=== PATIENT | male | born 1950 | race Caucasian/White ===

== ENCOUNTER 2021-04-29 08:47 | Outpatient (CLI) | payer MEDICARE, OTHER ==
[~2021-04-29] VITALS: Ht 172.7 cm; Wt 118.9 kg
== END 2021-04-30 13:04 | disposition home or self-care (01) ==
LOC: PREOP 08:47
PROVIDERS: ATTEND Surgery
DX: Z01.818 Encounter for other preprocedural examination (principal)

== ENCOUNTER 2021-05-04 09:21 | Day surgery (SDC) | payer MEDICARE, MEDICAID ==
[~2021-05-04] VITALS: Ht 172.7 cm; Wt 120.2 kg
--- OUTSIDE RECORDS SUMMARY | 2021-05-04 09:25 | XMS REPORT | Clinical Summary ---
Author Author [facility] Organization [facility] Address Unknown Phone Unavailable Care Team Providers Care Steam Hoist Operator Name Role Phone Dannielle Marin MD Unavailable Marvin Plata MD Unavailable Duane Kuhn MD, H. William Unavailable [phone] Arben Wright MD Unavailable Staci Oneill MD Unavailable Rosaura Danielle MD Unavailable Lynn Arredondo RN Unavailable Unavailable Jeff Mazariegos MD Unavailable Niall Robles DO Unavailable Shae Vaughn Unavailable Unavailable No Pcp, Na PCP Unavailable Source Comments Some departments are not documenting in the electronic medical record. If you d o not see the information that you expected, contact Release of Information in [facility] Information Management department at [phone] for further assistan ce in locating additional records.[facility] Allergies Comments Active Allergy Reactions Severity Noted Date Spouse states Patient gets really red, eyes and skin Morphine SEE COMMENTS Low 07/07/2018 Pt on IV Remodulin Nitroglycerin 07/01/2007 Sulfa (Sulfonamide HIVES Medium 02/23/2018 Antibiotics) Medications End Date Status Medication Sig Dispensed Refills Start Date Active tadalafil(+) (CIALIS, Take 20 mg by 0 ADCIRCA) 20 mg mouth daily. tabletIndications: Indications: pulmonary arterial pulmonary hypertension arterial hypertension Active treprostinil (TYVASO) Inhale 9 0 11/16/19 1 1.74 mg/2.9 mL (0.6 Puffs 4 mg/mL) nebu nebulizer solution as solution directed four times daily. Active acetaminophen (TYLENOL) Take two 0 325 mg tabletIndications: tablets by 9 fever, pain mouth every 4 hours as needed. Indications: fever, Pain Active oxyCODONE (ROXICODONE, Take one 10 tablet 0 OXY-IR) 5 mg tablet tablet to two 9 tablets by mouth every 4 hours as needed Earliest Fill Date: 08/09/18 Active amoxicillin/potassium Take by 0 clav (AUGMENTIN PO) mouth. Active furosemide (LASIX) 40 mg Take 2 360 tablet 2 0 tablet tablets by 1 mouth twice daily Active apixaban (ELIQUIS) 5 mg Take 5 mg by 0 tablet mouth twice daily. Active dilTIAZem CD (CARDIZEM Take 120 mg 0 CD) 120 mg capsule by mouth daily. Active allopurinoL (ZYLOPRIM) Take 100 mg 0 100 mg tablet by mouth daily. Take with food. Active citalopram (CELEXA) 20 mg Take 1 tablet 90 tablet 2 tablet by mouth once 1 daily Active gabapentin (NEURONTIN) TAKE 1 TABLET 90 tablet 11 0 600 mg tablet BY MOUTH 1 THREE TIMES DAILY FOR NEUROPATHIC PAIN Active spironolactone Take 1 tablet 90 tablet 3 (ALDACTONE) 50 mg tablet by mouth once 2 daily with food Active potassium chloride SR TAKE 3 360 tablet 11 (K-DUR) 20 mEq tablet TABLETS BY 2 MOUTH 4 TIMES DAILY WITH MEALS AND A FULL GLASS OF WATER 04/13/2021 Discontinued potassium chloride SR TAKE 3 360 tablet 6 (K-DUR) 20 mEq tablet TABLETS BY 0 MOUTH 4 TIMES DAILY WITH MEALS AND A FULL GLASS OF WATER 04/13/2021 Discontinued spironolactone Take 1 tablet 90 tablet 2 (ALDACTONE) 50 mg tablet by mouth once 1 daily with food Active Problems Problem Noted Date Chronic atrial fibrillation 08/04/2020 Epiretinal membrane (ERM) of left eye 02/22/2019 Physical deconditioning 08/21/2018 Horseshoe tear of retina of left eye 05/30/2018 Vitreous hemorrhage of left eye 05/30/2018 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 Probable Primary pulmonary hypertension 07/12/2007 Overview: Formatting of this note might be differ ent from the original. On remodulin, improved to who functiona l class I Lower extremity edema 07/12/2007 Hypothyroidism 07/12/2007 Depression 07/12/2007 Mitral regurgitation 07/12/2007 Hypertension 07/12/2007 Resolved Problems Problem Noted Date Resolved Date Intra-abdominal abscess 08/07/2018 02/22/2019 Acute hypoxemic respiratory failure 07/07/2018 Acute appendicitis 07/06/2018 07/09/2018 Appendicitis 07/06/2018 02/22/2019 Metabolic alkalosis 07/12/2007 08/08/2018 Encounters Care Team Description Date Type Specialty Marvin Plata MD 04/13/2021 Refill Pulmonology from Last 3 Months Immunizations Name Administration Dates Next Due FLU VACCINE >3YO 05/15/2012 Flu Vaccine =>65 YO 02/22/2019, 02/23/2018 High-Dose (PF) Flu Vaccine Trivalent =>3 03/20/2015 Yo (Preservative Free) Flu Vaccine Trivalent >64 04/29/2016 Yo High-dose (Preservative Free) Surgical History Surgery Date Site/Laterality Comments HX FOOT SURGERY LAPAROSCOPIC APPENDECTOMY 07/07/2018 Abdomen/N/A LAPA ROSCOPIC APPENDECTOMY performed by Jasen Arriaza MD at [facility] OR/Periop EYE SURGERY 05/30/2018 Eye/Left PROPHYLAXIS RET INAL DETACHMENT - 1 OR MORE SESSION - PHOTOCOAGULATION performed by Bernice Jernigan MD at 2 OR/PERIOP Medical History Medical History Date Comments Unspecified cardiovascular disease Unspecified disease of respiratory system Other symptoms involving skin and integumentary tissues Pulmonary hypertension (HCC) Htn Depression Cardiomyopathy (HCC) right ventricular CHF (congestive heart failure) (HCC) Family History Medical History Relation Name Comments Emphysema Father Macular Degen Maternal Aunt Hypertension Maternal Grandmother Cancer Mother Blindness Neg Hx Glaucoma Neg Hx Relation Name Status Comments Father Maternal Aunt Maternal Grandmother Mother Social History Date Tobacco Use Types Packs/Day Years Used Current Some Day Smoker Cigars 15 Smokeless Tobacco: Never Used Tobacco Cessation: Ready to Quit: No; Co unseling Given: No Comments: cigar infrequently maybe once every couple of months as of 04/01/14 Comments Alcohol Use Standard Drinks/Week occasional 1 drink every 6 months No 0 (1 standard drink = 0.6 o z pure alcohol) Alcohol Habits Answer Date Recorded How often do you have a drink containing alcohol? No t asked How many drinks containing alcohol do you have on No t asked a typical day when you are drinking? How often do you have six or more drinks on one Not asked occasion? Comment: occasional 1 drink every 6 05/10/2013 months Sex Assigned at Date Recorded Not on file Last Filed Vital Signs Reading Time Taken Comments Vital Sign 99/64 08/04/2020 8:12 AM CDT Blood Pressure 56 08/04/2020 8:12 AM CDT Pulse 36.5 C (97.7 F) 08/04/2020 8:12 AM CDT Temperature 16 08/04/2020 8:12 AM CDT Respiratory Rate 96% 08/04/2020 8:12 AM CDT RA Oxygen Saturation - - Inhaled Oxygen Concentration 120.4 kg (265 lb 6.4 oz) 08/04/2020 8:12 AM CDT Weight 172.7 cm (5' 8") 08/04/2020 8:12 AM CDT Height 40.35 08/04/2020 8:12 AM CDT Body Mass Index Plan of Treatment Health Maintenance Due Date Last Done Comments MEDICARE ANNUAL WELLNESS 1950 VISIT PNEUMONIA (PPSV23) 1958 VACCINE (1 of 2 - PPSV23) DTAP/TDAP VACCINES (1 - 1970 Tdap) PHYSICAL (COMPREHENSIVE) 1970 EXAM COLORECTAL CANCER 2002 SCREENING SHINGLES RECOMBINANT 2002 VACCINE (1 of 2) ABDOMINAL AORTIC ANEURYSM 2017 SCREENING INFLUENZA VACCINE 11/09/2020 02/22/2019, 02/23/2018, 04/29/2016, Additional history exists HEPATITIS C SCREENING Completed 04/29/2016, 06/23/2007 Results Not on filefrom Last 3 Months Insurance Type Payer Benefit Subscriber ID Effective Phone Address Plan / Dates Group Medicare MEDICARE MEDICARE [id number] 2008- [phone] [place] [address] AETNA MEDICAID AETNA [id number] 2018-P [phone] [address] [address] [place] [phone] Advance Directives Patient Auto Service Dispatcher Explanation Type Date Recorded Advance Directive/DPOA Advance Directives 11/09/2012 9:28 AM and Living Will Advance Directives 11/22/2011 11:48 AM and Living Will Advance Directives 12/03/2010 12:00 AM and Living Will Advance Directives 11/04/2009 12:00 AM and Living Will Date Inactivated Comments Code Status Date Activated 08/09/2018 11:35 AM Full Code 08/08/2018 7:38 AM Provider has discussed Code Status No, discussion no t w/Patient or Family? necessary based on Dx 08/08/2018 7:37 AM Full Code 08/07/2018 8:17 PM Provider has discussed Code Status No, more discussi on w/Patient or Family? needed 07/09/2018 5:14 PM Full Code 07/06/2018 10:28 PM Provider has discussed Code Status Yes w/Patient or Family? 07/06/2018 10:28 PM Full Code 07/06/2018 9:00 PM Provider has discussed Code Status No, more discussi on w/Patient or Family? needed 07/06/2018 9:00 PM Full Code 07/06/2018 9:00 PM Provider has discussed Code Status No, more discussi on w/Patient or Family? needed Care Teams Start Date End Date Steam Hoist Operator Relationship Specialty 08/17/18 No Pcp, Na PCP - General 02/09/10 Dannielle Marin MD [address] [place] [address] 02/09/10 Marvin Plata MD [address] Ortho[facility] Lvl [address] [place] [address] 02/09/10 Kizzy Zepeda Jr., MD [address] [facility] [address] [place] [address] 02/09/10 Arben Wright MD 4000 [facility] CST[address] [place] [address] 02/09/10 Staci Oneill MD [address] [place] [address] 02/09/10 Rosaura Danielle MD [address] [place] [address] 06/14/10 Lynn Arredondo, RN 06/15/10 Jeff Mazariegos MD Geriatric 4000 [facility] [place] [address] Medicine 11/13/13 Niall Robles, DO Internal [address] [place] [address] [place] [address] 11/19/13 Shae Vaughn
--- OUTSIDE RECORDS SUMMARY | 2021-05-04 09:25 | XMS REPORT | Encounter Summary ---
Author Author [facility] Organization [facility] Address Unknown Phone Unavailable Care Team Providers Care Area Safety Manager Name Role Phone Dannielle Marin MD Unavailable Marvin Plata MD Unavailable Duane Kuhn MD, H. William Unavailable [phone] Arben Wright MD Unavailable Staci Oneill MD Unavailable Rosaura Danielle MD Unavailable Lynn Arredondo RN Unavailable Unavailable Jeff Mazariegos MD Unavailable Niall Robles DO Unavailable Shae Vaughn Unavailable Unavailable No Pcp, Na PCP Unavailable Reason for Visit * Reason Comments Medication Refill Encounter Details Care Team Description Date Type Department Marvin Plata MD [address] Ortho/Med Pavilion [address] [place] [address] 04/13/2021 Refill Pulmonology: Reyes Hopper ampus, Medical Pavilion [address], [address] [address] Social History Date Tobacco Use Types Packs/Day Years Used Current Some Day Smoker Cigars 15 Smokeless Tobacco: Never Used Comments: cigar infrequently maybe once every couple [...] Assigned at Date Recorded Not on file documented as of this encounter Functional Status Date of Assessment Functional Status Response 08/09/2018 Does the patient have a hearing impairment: No 08/09/2018 Does the patient have a visual impairment: No 08/09/2018 Does the patient have impaired ambulation: No 08/09/2018 Does the patient have an activity of daily living No (ADL) impairment: 08/09/2018 Does the patient have an instrumental activity of No daily living (IADL) impairment: Date of Assessment Cognitive Status Response 08/09/2018 Does the patient have a cognitive impairment: No documented as of this encounter Ordered Prescriptions Start Date End Date Prescription Sig Dispensed Refills 04/13/2021 potassium chloride SR TAKE 3 360 tablet 11 (K-DUR) 20 mEq tablet TABLETS BY MOUTH 4 TIMES DAILY WITH MEALS AND A FULL GLASS OF WATER 04/13/2021 spironolactone Take 1 tablet 90 tablet 3 (ALDACTONE) 50 mg tablet by mouth once daily with food documented in this encounter Plan of Treatment Not on filedocumented as of this encounter Visit Diagnoses Not on filedocumented in this encounter Discontinued Medications Start Date End Date Medication Sig Discontinue Reason 06/30/2020 04/13/2021 spironolactone Take 1 (ALDACTONE) 50 mg tablet tablet by mouth once daily with food 10/16/2019 04/13/2021 potassium chloride SR TAKE 3 (K-DUR) 20 mEq tablet TABLETS BY MOUTH 4 TIMES DAILY WITH MEALS AND A FULL GLASS OF WATER documented as of this encounter Additional Health Concerns Noted Time Assessment 08/04/2020 8:20 AM CDT A fall risk assessment has been complet ed for the patient 08/04/2020 8:19 AM CDT PHQ-2 Depression Total Score: 2 documented as of this encounter Care Teams Start Date End Date Area Safety Manager Relationship Specialty 08/17/18 No Pcp, Na PCP - General 02/09/10 Dannielle Marin MD [address] [place] [address] 02/09/10 Marvin Plata MD [address] [facility] L[facility] [address] [place] [address] 02/09/10 Kizzy Zepeda Jr., MD 4000 [facility] [address] [place] [address] 02/09/10 Arben Wright MD 4000 [facility] I[address]454 [place] [address] 02/09/10 Staci Oneill MD [address] [place] [address] 02/09/10 Rosaura Danielle MD [address] [place] [address] 06/14/10 Lynn Arredondo, RN 06/15/10 Jeff Mazariegos MD Geriatric 4000 [facility] [address] Medicine 11/13/13 Niall Robles, DO Internal [facility] Medicine [facility] [address] [place] [address] 11/19/13 Shae Vaughn documented as of this encounter
[2021-05-04] MEDS ORDERED: LACTATED RINGERS 1,000 ML IV ONE (09:28)
[2021-05-04] MEDS ORDERED: LACTATED RINGERS 1,000 ML IV STA (09:32)
[2021-05-04 09:45] VITALS: BP 105/71
--- NOTE | 2021-05-04 09:47 | Progress Note-Pre Operative ---
Pre-Operative Progress Note H&P Reviewed The H&P was reviewed, patient examined and no changes noted. Time Seen by Provider: 09:45 Date H&P Reviewed: May 04, 2021 Time H&P Reviewed: 09:45 Pre-Operative Diagnosis: RLQ pain, rectal bleed NAOMI HODGE DO May 04, 2021 09:47
[2021-05-04] MEDS ORDERED: APIX5TAB PO (10:13)
[2021-05-04] MEDS ORDERED: ESCI-2 PO (10:13)
[2021-05-04] MEDS ORDERED: GBPN600T PO (10:13)
[2021-05-04] MEDS ORDERED: DILT120C88 PO (10:13)
[2021-05-04] MEDS ORDERED: CITA20TA9 PO (10:13)
[2021-05-04] MEDS ORDERED: SPIR100T4 PO (10:13)
[2021-05-04] MEDS ORDERED: ALPR0.254 PO (10:13)
[2021-05-04] MEDS ORDERED: ALLO100T PO (10:13)
[2021-05-04] MEDS ORDERED: POTA-179 PO (10:13)
[2021-05-04] MEDS ORDERED: PROPOFOL INJECTION 50 ML IV ONE (10:27)
[2021-05-04 10:55] VITALS: BP 101/68
--- NOTE | 2021-05-04 10:58 | Progress Note-Post Operative ---
Post-Operative Progess Note Surgeon (s)/Feather Cutting Machine Feeder (s) Surgeon NAOMI HODGE DO Feather Cutting Machine Feeder: MERCEDEZ Saavedra Pre-Operative Diagnosis RLQ pain, rectal bleed Post-Operative Diagnosis Near obstructing colon mass polyps int hemorrhoids Procedure & Operative Findings Date of Procedure 05/04/21 Procedure Performed/Findings Flex sig with snare polypectomy Flex sig with hot bx Flex sig with injection of tattoo markings PROCEDURE NOTE: After informed consent was obtained, the patient was brought to the endoscopy suite, placed in bed in left lateral decubitus position. He was administered IV sedation by the SENIOR INFRASTRUCTURE ARCHITECT who then monitored his vitals the entire time, heart rate, blood pressure and pulse ox and the scope was inserted. On the way in we to to about 50 cm and encountered a near obstructing lesion. The distal end was inflamed and past this there appeared to be an ulcer with possible further narrowing. I could not get the scope past here. I elected to do hot biopsy of the area and then used Marline Ink to tattoo for subsequent procedures. At this point elected to remove the scope insufflating to see cirumferentially; from the descending colon, down the sigmoid and then into the rectal vault and retroflexed the scope. I found two polyps in the rectum and elected to do a hot snare to completely remove them. I took a picture of the polyps and internal hemorrhoids. Removed the scope, the patient tolerated the procedure. He was recovered in endoscopy suite. Anesthesia Type IV sedation by SENIOR INFRASTRUCTURE ARCHITECT Estimated Blood Loss Estimated blood loss (mL): scant Specimens/Packing Specimens Removed colon bx rectal polyps x 2 NAOMI HODGE DO May 04, 2021 10:58
--- NOTE | 2021-05-04 10:59 | Endoscopy Discharge Instruct ---
Endo Procedure/Findings Findings 1.: Other Findings (Near obstructing lesion) 2.: Polyp 3.: Internal Hemorrhoids Discharge Instructions - Activity: You might feel a little sleepy until tomorrow. This is due to the medicine you received to relax you. Until tomorrow, you should: NOT drive a car, operate machinery or power tools. NOT drink any alcoholic beverages. NOT make any important decisions or sign importortant papers. Do not return to work until tomorrow, unless otherwise instructed. Resume previous activities tomorrow. Diet: Start by taking liquids. If you tolerate liquids, advance to solid food. 1.: Colonoscopy in 1 year Notify Physician - If you experience excessive bleeding, unusual abdominal pain, fever, or chest pain, contact your doctor immediately. NAOMI HODGE DO May 04, 2021 10:59
[2021-05-04 11:00] VITALS: BP 97/64
[2021-05-04 11:02] VITALS: BP 97/64
[2021-05-04 11:35] VITALS: BP 85/63
--- NOTE | 2021-05-04 11:44 | Anesthesia-General Post-Op ---
MAC Patient Condition Mental Status/LOC: Same as Preop Cardiovascular: Satisfactory Nausea/Vomiting: Absent Respiratory: Satisfactory Pain: Controlled Complications: Absent Post Op Complications Complications None Follow Up Care/Instructions Patient Instructions None needed. Anesthesiology Discharge Order Discharge Order Patient is doing well, no complaints, stable vital signs, no apparent adverse anesthesia problems. No complications reported per nursing. GASTON HAYWOOD CRNA May 04, 2021 11:44
--- NOTE | 2021-05-08 13:22 | Physician Query Clarification ---
Physician Query-General Query to Physician: The medical record reflects the following clinical evidence: Clinical Indicators: Ht. 172.7 Cm Wt 121.5 Kg= BMI of 40.7, Risk Factor(s): Pulmonary HTN, Decreased activity level Treatment: Closer Monitoring of Respiratory status and incision site, Dietary education 1. Obesity with Body mass index [BMI]40.0-44.9, adult 2. Other explanation of clinical findings 3. Unable to determine (no explanation for clinical findings) Please clarify and document your clinical opinion in the progress notes and discharge summary including the definitive and/or presumptive diagnosis, (suspected or probable), related to the above clinical findings. Please include clinical findings supporting your diagnosis. Janet Haywood MSN, RN Clinical Cardiovascular Radiologic Technologist [phone] [email or web address] PHYSICIAN RESPONSE: Based on the clinical findings in the record, please respond to the query above on this document as an addendum. Physician Response: If you have questions please contact: Online Trader: Ext: Thank you for your time and cooperation. Clinical Cardiovascular Radiologic Technologist/Online Trader This is a permanent part of the medical record JANET HAYWOOD May 08, 2021 13:22
== END 2021-05-04 11:55 | disposition home or self-care (01) ==
LOC: ENDO 09:21
PROVIDERS: ATTEND Surgery
DX: D12.8 Benign neoplasm of rectum (principal); K62.89 Other specified diseases of anus and rectum; K62.5 Hemorrhage of anus and rectum; K64.8 Other hemorrhoids; I10 Essential (primary) hypertension; I48.91 Unspecified atrial fibrillation; E66.01 Morbid (severe) obesity due to excess calories; F17.210 Nicotine dependence, cigarettes, uncomplicated; Z68.41 Body mass index [BMI] 40.0-44.9, adult; Z79.01 Long term (current) use of anticoagulants; Z79.899 Other long term (current) drug therapy; Z80.9 Family history of malignant neoplasm, unspecified

== ENCOUNTER 2021-05-05 15:50 | Outpatient (CLI) | payer MEDICARE, MEDICAID ==
[~2021-05-05] VITALS: Ht 172.2 cm; Wt 120.0 kg
[~2021-05-05 15:50] MED LIST: ALLO100T PO; ALPR0.254 PO; APIX5TAB PO; CITA20TA9 PO; DILT120C88 PO; ESCI-2 PO; GBPN600T PO; POTA-179 PO; SPIR100T4 PO
== END 2021-05-05 18:01 | disposition home or self-care (01) ==
LOC: PREOP 15:50
PROVIDERS: ATTEND Surgery
DX: Z01.818 Encounter for other preprocedural examination (principal)
CPT/HCPCS: 88305

== ENCOUNTER 2021-05-06 05:55 | Inpatient (IN) | payer MEDICARE, MEDICAID ==
[~2021-05-06] VITALS: Ht 172.7 cm; Wt 121.5 kg
[2021-05-06] VITALS (11 sets, daily range): BP systolic 102–133; BP diastolic 69–96
--- OUTSIDE RECORDS SUMMARY | 2021-05-06 09:01 | XMS REPORT | Clinical Summary ---
Author Author [facility] Organization [facility] Address Unknown Phone Unavailable Care Team Providers Care Product Promoter Sales Person Name Role Phone Dannielle Marin MD Unavailable Marvin Plata MD Unavailable Duane Kuhn MD, H. William Unavailable [phone] Arben Wright MD Unavailable Staci Oneill MD Unavailable Rosaura Danielle MD Unavailable Lynn Arredondo RN Unavailable Unavailable Jeff Mazariegos MD Unavailable Niall Robles DO Unavailable Shae Vaughn Unavailable Unavailable No Pcp, Na PCP Unavailable Source Comments Some departments are not documenting in the electronic medical record. If you d o not see the information that you expected, contact Release of Information in [facility] Information Management department at [phone] for further assistan ce in locating additional records.[facility] Allergies Comments Active Allergy Reactions Severity Noted [...] Plan / Dates Group Medicare MEDICARE MEDICARE [id number] 2008- [phone] [address] AND Present [address] [place] [address] AETNA MEDICAID AETNA [id number] 2018-P [phone] [address] [address] [place] [phone] Advance Directives Patient Traffic Officer Explanation Type Date Recorded Advance Directive/DPOA Advance [...] needed Care Teams Start Date End Date Product Promoter Sales Person Relationship Specialty 08/17/18 No Pcp, Na PCP - General 02/09/10 Dannielle Marin MD [address] [place] [address] 02/09/10 Marvin Plata MD [address] Ortho/Med Pavilion Lvl [address] [place] [address] 02/09/10 Kizzy Zepeda Jr., MD 4000 [facility] [address] [place] [address] 02/09/10 Arben Wright MD 4000 [facility] [address]74 [place] [address] 02/09/10 Staci Oneill MD 4000 [place] [address] 02/09/10 Rosaura Danielle MD 4000 [place] [address] 06/14/10 Lynn Arredondo, RN 06/15/10 Jeff Mazariegos MD Geriatric 4000 [facility] [place] [address] Medicine 11/13/13 Niall Robles, DO Internal [address] [place] [address] [place] [address] 11/19/13 Shae Vaughn
--- OUTSIDE RECORDS SUMMARY | 2021-05-06 09:01 | XMS REPORT | Encounter Summary ---
Author Author [facility] Organization [facility] Address Unknown Phone Unavailable Care Team Providers Care Threading Machine Setter Name Role Phone Dannielle Marin MD Unavailable Marvin Plata MD Unavailable Duane Khun MD, H. William Unavailable [phone] Arben Wright MD Unavailable Staci Oneill MD Unavailable Rosaura Danielle MD Unavailable Lynn Arredondo RN Unavailable Unavailable Jeff Mazariegos MD Unavailable Niall Robles DO Unavailable Shae Vaughn Unavailable Unavailable No Pcp, Na PCP Unavailable Reason for Visit * Reason Comments Medication Refill Encounter Details Care Team Description Date Type Department Marvin Plata MD [address] Ortho/Med Pavilion [address]vl [address] [address] 04/13/2021 Refill Pulmonology: Reyes Hopper ampus, Medical Pavilion [address] [address] Social History Date Tobacco Use Types [...] encounter Care Teams Start Date End Date Threading Machine Setter Relationship Specialty 08/17/18 No Pcp, Na PCP - General 02/09/10 Dannielle Marin MD [address] [place] [address] 02/09/10 Marvin Plata MD [address] [facility] [address] [place] [address] 02/09/10 Kizzy Zepeda Jr., MD 4000 [facility] [address] [place] [address] 02/09/10 Arben Wright MD 4000 [facility] [id number] [address] 02/09/10 Staci Oneill MD [address] [place] [address] 02/09/10 Rosaura Danielle MD [address] [place] [address] 06/14/10 Lynn Arredondo, RN 06/15/10 Jeff Mazariegos MD Geriatric 4000 [facility] Internal [address] Medicine 11/13/13 Niall Robles, DO Internal [facility] Medicine [facility] [address] [place] [address] 11/19/13 Shae Vaughn documented as of this encounter
--- NOTE | 2021-05-06 09:12 | Progress Note-Pre Operative ---
Pre-Operative Progress Note H&P Reviewed The H&P was reviewed, patient examined and no changes noted. Time Seen by Provider: 09:08 Date H&P Reviewed: May 06, 2021 Time H&P Reviewed: 09:08 Pre-Operative Diagnosis: Near obstructing colon lesion - Left side NAOMI HODGE DO May 06, 2021 09:12
[2021-05-06] MEDS: LACTATED RINGERS 1,000 ML IV PRN ×2 (09:25→12:30)
[2021-05-06] MEDS ORDERED: ceFAZolin 2 GM IV Premixed 50 ML ONE (09:35)
[2021-05-06] MEDS ORDERED: ceFAZolin 2 GM IV Premixed 50 ML IV ONE (09:45)
[2021-05-06] MEDS ORDERED: LIDOCAINE/EPI 1%-1:200,000 (XYLOCAINE) 30 ML VIAL ONE (10:30)
[2021-05-06] MEDS ORDERED: LIDOCAINE PF 2% 5 ML (XYLOCAINE) VIAL ONE (10:33)
[2021-05-06] MEDS ORDERED: ONDANSETRON 4 MG/2 ML (SDV) Z0FRAN ONE (10:33)
[2021-05-06] MEDS ORDERED: GLYCOPYRROLATE 0.2 MG/ML (ROBINUL) 2 ML VIAL ONE (10:33)
[2021-05-06] MEDS ORDERED: fentaNYL INJ 100 MCG/2 ML AMP ONE (10:33)
[2021-05-06] MEDS ORDERED: proPOfol 200 MG/20 ML (DIPRIVAN) VIAL IV ONE (10:33)
[2021-05-06] MEDS ORDERED: NEOSTIGMINE 3 MG/3 ML VIAL ONE (10:33)
[2021-05-06] MEDS ORDERED: MIDAZOLAM 2 MG/2 ML (VERSED) VIAL ONE (10:33)
[2021-05-06] MEDS ORDERED: ROCURONIUM 50 MG/5 ML (ZEMURON) VIAL IV ONE (10:34)
[2021-05-06 10:52] LABS: BASOPHILS # (AUTO) 0.1 10^3/uL (0.0-0.1); BASOPHILS % (AUTO) 0 % (0-10); EOSINOPHILS # (AUTO) 0.1 10^3/uL (0.0-0.3); EOSINOPHILS % (AUTO) 1 % (0-10); HEMATOCRIT 37 % (40-54); HEMOGLOBIN 11.1 g/dL (13.3-17.7); LYMPHOCYTES # (AUTO) 0.7 10^3/uL (1.0-4.0); LYMPHOCYTES % (AUTO) 6 % (12-44); MEAN CORPUSCULAR HEMOGLOBIN 24 pg (25-34); MEAN CORPUSCULAR HGB CONC 30 g/dL (32-36); MEAN CORPUSCULAR VOLUME 79 fL (80-99); MEAN PLATELET VOLUME 9.3 fL (9.0-12.2); MONOCYTES # (AUTO) 0.9 10^3/uL (0.0-1.0); MONOCYTES % (AUTO) 8 % (0-12); NEUTROPHILS # (AUTO) 10.1 10^3/uL (1.8-7.8); NEUTROPHILS % (AUTO) 85 % (42-75); PLATELET COUNT 201 10^3/uL (130-400)
[2021-05-06 11:05] LABS: POTASSIUM 3.5 MMOL/L (3.6-5.0)
[2021-05-06 11:06] LABS: CALCIUM 9.5 MG/DL (8.5-10.1)
[2021-05-06 11:10] LABS: CREATININE SERUM 1.14 MG/DL (0.60-1.30)
[2021-05-06 11:12] LABS: BASOPHILS % (MANUAL) 1 %; EOSINOPHILS % (MANUAL) 2 %; LYMPHOCYTES % (MANUAL) 6 %; MONOCYTES % (MANUAL) 8 %; NEUTROPHILS % (MANUAL) 83 %; RBC MORPH NORMAL
[2021-05-06] MEDS ORDERED: BUPIVACAINE 0.5% 30 ML (SENSORCAINE) VIAL ONE (11:25)
[2021-05-06] MEDS ORDERED: meTOprolol 5 MG/5 ML (LOPRESSOR) VIAL ONE (11:40)
[2021-05-06] MEDS ORDERED: PHENYLEPHRINE 100 MCG/ML 10 ML (ANESTHESIA) SYR ONE (11:40)
--- NOTE | 2021-05-06 12:43 | Progress Note-Post Operative ---
Post-Operative Progess Note Surgeon (s)/Business Solutions Architect (s) Surgeon NAOMI HODGE DO Business Solutions Architect: Suzette Pre-Operative Diagnosis Near obstructing colon lesion - Left side Post-Operative Diagnosis same pending path Procedure & Operative Findings Date of Procedure 05/06/21 Procedure Performed/Findings Lap Hand asst Partial colon resection Anesthesia Type GET Estimated Blood Loss Estimated blood loss (mL): 50ml Specimens/Packing Specimens Removed left colon NAOMI HODGE DO May 06, 2021 12:43
[2021-05-06] MEDS ORDERED: ONDANSETRON 4 MG/2 ML (SDV) Z0FRAN IVP PRN ×2 (13:00→13:30)
--- NOTE | 2021-05-06 13:21 | Anesthesia-General Post-Op ---
General Patient Condition Mental Status/LOC: Same as Preop Cardiovascular: Satisfactory Nausea/Vomiting: Absent Respiratory: Satisfactory Pain: Controlled Complications: Absent Post Op Complications Complications None Follow Up Care/Instructions Patient Instructions None needed. Anesthesia/Patient Condition Patient Condition Patient is doing well, no complaints, stable vital signs, no apparent adverse anesthesia problems. No complications reported per nursing. ELVIRA SAMANO CRNA May 06, 2021 13:21
[2021-05-06] MEDS ORDERED: SEVOFLURANE (ULTANE) 15 ML INHAL SOLN ONE (13:25)
[2021-05-06] MEDS ORDERED: MEPERIDINE (DEMEROL) INJ 50 MG/ML IVP ONE (13:30)
[2021-05-06] MEDS ORDERED: PROMETHAZINE INJ 25 MG/ML (PHENERGAN) AMP IVP ONE (13:30)
[2021-05-06] MEDS ORDERED: HYDROmorphone 2 MG/ML VIAL (DILAUDID) IV ONE (13:30)
[2021-05-06] MEDS ORDERED: fentaNYL INJ 100 MCG/2 ML AMP IVP ONE (13:30)
[2021-05-06] MEDS: LACTATED RINGERS 1,000 ML IV SCH ×2 (14:45→20:13)
[2021-05-06] MEDS: metroNIDAZOLE 500MG/100ML IVPB 100 ML IV SCH (14:51)
[2021-05-06] MEDS: ENOXAPARIN 40 MG/0.4 ML (LOVENOX) SYR SC SCH (14:51)
[2021-05-06] MEDS: ACETAMINOPHEN 500 MG TAB (TYLENOL) PO SCH ×2 (14:52→20:12)
[2021-05-06] MEDS: KETOROLAC 30 MG/ML VIAL IVP SCH ×2 (14:52→20:13)
[2021-05-06] MEDS: ceFAZolin 2 GM IV Premixed 50 ML IV SCH (18:13)
--- NOTE | 2021-05-06 19:05 | OPERATIVE REPORT ---
DATE OF SERVICE: 05/06/2021 PREOPERATIVE DIAGNOSIS: Near obstructing colon mass in the left colon. POSTOPERATIVE DIAGNOSIS: Near obstructing colon mass in the left colon, pending pathology. PROCEDURES PERFORMED: 1. Laparoscopic hand-assisted colon resection. 2. Takedown of splenic flexure. SURGEON: Naomi Salcedo DO. BOOKS BINDER: Damon Bradford DO. ANESTHESIA: General endotracheal tube. SPECIMEN: Left colon. BLOOD LOSS: Less than 50 mL. FLUIDS: Per anesthesia. POSTOPERATIVE CONDITION: Stable. INDICATION FOR PROCEDURE: The patient is a 70-year-old male, who has never had a colonoscopy before, is having some rectal bleeding and pain. Attempted colonoscopy on Tuesday05/04/2021, was unsuccessful because of a near obstructing colon lesion, had a discussion with the patient regarding this and the fact that he is already prepped and he wanted to get this done as soon as possible. We went over the risks and complications, especially considering the fact that he had pulmonary hypertension and some atrial fibrillation and high risk of mortality. FINDINGS: The patient had a left colon mass removed, could see the tattooing done below the mass, could feel this mass as well. PROCEDURE NOTE: After informed consent was obtained, the patient was brought to the operating room and placed on the table in the lithotomy position. He was sterilely prepped and draped in a normal fashion. I started with a midline incision from about 2 inches above the umbilicus about 2 inches below the umbilicus. I made an incision with a #10 blade, carried down through the skin into subcutaneous tissue, then deepened down to the subcutaneous tissue with Bovie electrocautery down to fascia. Fascia was incised with Bovie electrocautery and bluntly entered the abdomen, increased the incision superiorly and inferiorly protecting the intestine with my hand, opening the fascia and the subcutaneous fat superiorly and inferiorly enough to get my hand into the abdomen, then placed a wound protector and then placed a GelPort over and placed the trocar through here, created pneumoperitoneum and then placed the camera through the pneumoperitoneum and then placed a limited trocar port in the right lower quadrant using local lidocaine, 11 blade for stab incision and a VersaStep system, all done under direct visualization, then took the trocar out of the GelPort and put it in this VersaStep sleeve. We then placed another 5 mm port in the left lower quadrant using local lidocaine, 11 blade for stab incision and VersaStep system and then during the case, made one more in the right upper quadrant with a 5 mm VersaStep system. Again, all done under direct visualization in the same fashion. He was placed slightly Trendelenburg, able to visualize the tattooing, it was right in the middle of the descending colon. At this point, I started coming along the white line of Toldt in the pericolic gutter, freeing up the sigmoid and the left colon using a spatula cautery and then blunt dissection to bring all of the structures to the midline coming along the white line of Toldt, freeing everything to the midline and then going up along the splenocolic ligament and across the splenic flexure, taking this down to be able to pull this into the midline and then using LigaSure to come across under the omentum and on top of the transverse colon to be able to free this up and bring this transverse colon into the midline as well. Once we got everything pulled into the midline, then able to open the midline incision, took the Gelport off and were able to bring this colon into the incision, went below the tattooing, made a defect in the mesentery, then placed a FAVIAN-75 across, clamped, held for 30 seconds, then fired, then went about at least 4 cm proximal to the colon mass, made a defect in the mesentery of the transverse colon, brought another FAVIAN-75 across, clamped, held for 30 seconds, then fired, and then using LigaSure to come across the mesentery, going down all the to the base going to the retroperitoneal area along the lateral border, taking this off and then passing this off the table. LigaSure was clamped, coagulated, transected and then in a stepwise fashion going all the way across to remove this. The mesentery and this portion of the colon. Once this was done, able to get both sections up into the midline, took off a lot of epiploica, made a defect in the tinea and then placed one side of the FAVIAN on either portion and one in the transverse colon, one in the descending colon, clamped these together, thereby creating a [id number] functional end-to-end anastomosis, held for 30 seconds, then fired and then held the colo-colotomy up with Allises and then placed a TA 60 across this, clamped, and fired and then cut this distal portion off. There was a small opening. This was oversewn with 3-0 Vicryl and then sutured down some epiploica to cover this area as well, could feel a good anastomosis, dropped this back in. There was no more bleeding from the mesentery, pulled the omentum down over this, created pneumoperitoneum to look again, took a picture of the colo-colotomy, and a primary anastomosis, and at this point then removed all ports under direct visualization, allowed the pneumoperitoneum to escape. The patient was placed supine. Closed the midline incision, closing the fascia with a #1 double stranded suture running from the superior portion to the inferior portion, tying to itself, copiously irrigating the midline incision and closing all incisions with lauro. The area was cleaned and dried, dressings placed. The patient tolerated the procedure. Sponge and needle counts were correct at the end of the case. He was transferred to recovery room in a stable condition. Dr. Bradford assisted in this case helping to make incisions, close incisions, identify anatomy, and hold anatomy out of the way. Job ID: [id number] DocumentID: [id number] Dictated Date: 05/06/2021 14:10:47 Supervisor Nuclear Medicine Date: 05/06/2021 19:03:59 Dictated By: NAOMI SALCEDO DO
[2021-05-07] VITALS (7 sets, daily range): BP systolic 93–127; BP diastolic 58–72
[2021-05-07] MEDS: metroNIDAZOLE 500MG/100ML IVPB 100 ML IV SCH (01:05)
[2021-05-07] MEDS: KETOROLAC 30 MG/ML VIAL IVP SCH ×4 (03:12→20:12)
[2021-05-07] MEDS: ceFAZolin 2 GM IV Premixed 50 ML IV SCH (03:12)
[2021-05-07] MEDS: LACTATED RINGERS 1,000 ML IV SCH ×3 (05:46→22:45)
[2021-05-07] MEDS: ACETAMINOPHEN 500 MG TAB (TYLENOL) PO SCH ×3 (05:46→20:12)
--- NOTE | 2021-05-07 06:56 | Progress Note - Surgery ---
SOSA EARL 05/07/21 0656: Subjective Date Seen by a Provider: May 07, 2021 Time Seen by a Provider: 06:30 Subjective/Events-last exam Patient is 1 day S/P partial transverse colon resection and reanastamosis. He was awake in bed when I saw him this morning. Patient has required supplemental oxygen since the procedure yesterday and didn;t have his nasal canula on this morning when I saw him. I took his O2 with it off and patient had an O2 saturation of 91%. Upon putting his nasal canula on and breathing through his nose it went back up to 98%. He normally sleeps w/ 2L O2 at home and doesn't need supplemental oxygen during the day. Patient denies ambulating since the p rocedure and hasn't passed any gas. Still has kimble catheter in place and appears to be functioning well. Patient reports eating jello last night for dinner and hasn't had any N/V, or pain unable to be controlled by his ketorolac and acetaminophen. He hasn't been using his IS, but said he would after explaining the benefits of it to him. Review of Systems General: No Chills, No Night Sweats HEENT: No Head Aches, No Visual Changes, No Sore Throat Pulmonary: No Dyspnea, No Cough Cardiovascular: No: Chest Pain, Palpitations Gastrointestinal: Abdominal Pain (reports it is well controlled w/ his acetaminophen and ketorolac); No: Nausea, Vomiting Genitourinary: No Dysuria, No Hematuria Musculoskeletal: No: arm pain, leg pain Neurological: No: Numbness, Change in speech Objective Exam Vital Signs Date Time Temp Pulse Resp B/P (MAP) Pulse Ox O2 Delivery O2 Flow Rate FiO2 05/07/21 03:40 36.0 92 20 97/65 (76) 94 Nasal Cannula 3.00 05/07/21 00:00 36.8 99 20 97/72 (80) 98 Nasal Cannula 3.00 05/06/21 21:08 Nasal Cannula 3.00 05/06/21 19:57 36.4 120 20 102/69 (80) 98 Nasal Cannula 3.00 05/06/21 16:00 36.6 113 20 122/92 (102) 98 Nasal Cannula 3.00 05/06/21 15:17 Nasal Cannula 2.00 05/06/21 14:36 Nasal Cannula 3.00 05/06/21 14:20 36.8 115 22 128/74 (92) 94 Nasal Cannula 3.00 05/06/21 14:10 Nasal Cannula 3 05/06/21 14:10 36.8 20 125/96 (106) 97 Nasal Cannula 3 05/06/21 14:00 20 125/96 (106) 98 Nasal Cannula 3 05/06/21 14:00 Nasal Cannula 3 05/06/21 13:50 20 130/96 (107) 97 Nasal Cannula 3 05/06/21 13:45 Nasal Cannula 3 05/06/21 13:40 20 131/93 (106) 99 Nasal Cannula 3 05/06/21 13:30 OxyMask 6 05/06/21 13:30 20 125/81 (96) 97 OxyMask 8 05/06/21 13:20 20 133/91 (105) 97 OxyMask 8 05/06/21 13:15 OxyMask 10 05/06/21 13:10 20 109/94 (99) 97 OxyMask 10 05/06/21 13:06 OxyMask 10 05/06/21 13:06 36.8 20 106/70 (82) 93 OxyMask 10 05/06/21 09:30 97 Room Air I & O 05/07/21 07:00 Intake Total 2920 ml Output Total 745 ml Balance 2175 ml Capillary Refill : Less Than 3 Seconds General Appearance: No Apparent Distress, Obese HEENT: PERRL/EOMI, Moist Mucous Membranes Neck: Supple; No Lymphadenopathy (L), No Lymphadenopathy (R), No Thyromegaly Respiratory: Chest Non Tender, Lungs Clear, Normal Breath Sounds, No Accessory Muscle Use, No Respiratory Distress Cardiovascular: Normal Peripheral Pulses, Irregularly Irregular (loudest at 2nd intercostal space on left side) Peripheral Pulses: 2+ Dorsalis Pedis (R), 2+ Left Dors-Pedis (L), 2+ Radial Pulses (R), 2+ Radial Pulses (L) Gastrointestinal: soft, no pulsatile mass, abnormal bowel sounds (minimally hypoactive, some sounds can be appreciated), tenderness (tender in LUQ upon p alpation. Patient rates as 7or8/10 pain.), other (Patient has large midline bandage still in place from yesterday's procedure. Noticed some serosanguinous fluid on bandage, but no signs of pus or spreading erythema from wound. Did not remove the bandage at this time. ) Extremity: Normal Capillary Refill, Non Tender, No Calf Tenderness, No Pedal Edema Neurologic/Psychiatric: Alert, Oriented x3 Skin: Normal Color, Warm/Dry Lymphatic: No Adenopathy Results Lab Laboratory Tests 05/06/21 10:45: White Blood Count 12.0H, Red Blood Count 4.65, Hemoglobin 11.1L, Hematocrit 37L, Mean Corpuscular Volume 79L, Mean Corpuscular Hemoglobin 24L, Mean Corpuscular Hemoglobin Concent 30L, Red Cell Distribution Width 15.1H, Platelet Count 201, Mean Platelet Volume 9.3, Immature Granulocyte % (Auto) 0, Neutrophils (%) (Auto) 85H, Lymphocytes (%) (Auto) 6L, Monocytes (%) (Auto) 8, Eosinophils (%) (Auto) 1, Basophils (%) (Auto) 0, Neutrophils # (Auto) 10.1H, Lymphocytes # (Auto) 0.7L, Monocytes # (Auto) 0.9, Eosinophils # (Auto) 0.1, Basophils # (Auto) 0.1, Immature Granulocyte # (Auto) 0.0, Neutrophils % (Manual) 83, Lymphocytes % (Manual) 6, Monocytes % (Manual) 8, Eosinophils % (Manual) 2, Basophils % (Manual) 1, Blood Morphology Comment NORMAL, Sodium Level 137, Potassium Level 3.5L, Chloride Level 99, Carbon Dioxide Level 28, Anion Gap 10, Blood Urea Nitrogen 10, Creatinine 1.14, Estimat Glomerular Filtration Rate 70, BUN/Creatinine Ratio 9, Glucose Level 137H, Calcium Level 9.5 Assessment/Plan Assessment/Plan Assessment/Plan Assessment/Plan 1 day S/P Partial transverse colon resection w/ reanastomosis -Patients pain is currently well controlled and without signs of infection or distension of abdomen. Recommended patient walk today in order to help awaken his bowels and try to help him pas gas/have a BM. Will try slowly advancing his diet. Monitor for now. 2.) Supplemental Oxygen Dependency -Recommended patient use his IS more frequently in order to prevent a pneumonia from developing. Will try to wean him off his supplemental O2 during the day to get him back to baseline. Getting patient up ambulating may help his lung function return as well. 3.) Atrial fibrillation -Enoxaparin for DVT and stroke prophylaxis. Will Consult Cardiology to assess patients A fib and pulmonary Hypertension. 4.) Pulmonary Hypertension -Patient has history of Pulmonary Hypertension for which he sees a Dr. Plata at . See above. 5.) Anemia -Patient's hgb yesterday before the procedure was 11.1. This is mildly below normal and patient doesn't appear overly symptomatic at this time. Will monitor for now. 6.) Leukocytosis -Patients WBC were 12 yesterday before the procedure. Might be in part to lesion in patients colon that has since been removed. No signs of infection appreciated today on exam. will monitor for now. 7.) Hypotension -Continue fluids and consider increasing transfusion rate. If continues to worsen and patient becomes tachycardic then will consider CT to assess for any internal bleeding complications from the procedure. JOSE HODGE DO 05/07/21 0928: Subjective Time Seen by a Provider: 09:19 Subjective/Events-last exam Pt seen and examined, lying in bed comfortable. He states he is passing some gas now and pain is mostly controlled. Tolerating clears. Review of Systems General: No Chills, No Night Sweats Pulmonary: No Dyspnea, No Cough Cardiovascular: No: Chest Pain, Palpitations Gastrointestinal: Abdominal Pain (reports it is well controlled w/ his acetaminophen and ketorolac); No: Nausea, Vomiting Objective Exam General Appearance: No Apparent Distress, Obese HEENT: PERRL/EOMI, Moist Mucous Membranes Respiratory: Lungs Clear, Normal Breath Sounds, No Accessory Muscle Use, No Respiratory Distress Cardiovascular: No Murmur, Irregularly Irregular (loudest at 2nd intercostal space on left side) Gastrointestinal: soft, abnormal bowel sounds (minimally hypoactive, some sounds can be appreciated), tenderness (tender in LUQ upon palpation. Patient rates as 7or8/10 pain.), other (Minimal serosanguinous fluid on bandage ) Extremity: No Calf Tenderness, No Pedal Edema Neurologic/Psychiatric: Alert, Oriented x3 Assessment/Plan Assessment/Plan Assessment/Plan S/P Left colon resection Pulmonary HTN Plan to start home meds, encourage ambulation and IS use. Kimble still in place; asked nurse to please remove. Will increase to a soft diet. Supervisory-Addendum Brief Verification & Attestation Participated in pt care: history, MDM, physical Personally performed: exam, history, MDM, supervision of care Care discussed with: Medical Student Procedures: n/a Verification and Attestation of Medical Student E/M Service A medical student performed and documented this service. I then reviewed and verified all information documented by the medical student and made modifications to such information, when appropriate. I personally performed a physical exam, medical decision making and then discussed any differences between the notes and made revisions as necessary to create one note. Jose Hodge , 05/07/21 , 09:28 SOSA EARL May 07, 2021 06:56 JOSE HODGE DO May 07, 2021 09:28
[2021-05-07] MEDS: PANTOPRAZOLE 40 MG (PROTONIX) VIAL IVP SCH (08:33)
[2021-05-07] MEDS ORDERED: HYDROcodone/APAP 5 MG/325 MG (LORTAB) TAB PO NR (11:00)
[2021-05-07] MEDS ORDERED: SPIR50TA4 PO (11:25)
[2021-05-07] MEDS ORDERED: FURO40TA4 PO (11:25)
[2021-05-07] MEDS ORDERED: TADA20TA43 PO (11:25)
[2021-05-07] MEDS: GABAPENTIN 600 MG (NEURONTIN) TAB PO SCH ×2 (11:30→20:11)
[2021-05-07] MEDS ORDERED: PATIENT MAY USE OWN MEDS, ALL MC SCH (11:45)
[2021-05-07] MEDS: ENOXAPARIN 40 MG/0.4 ML (LOVENOX) SYR SC SCH (14:43)
[2021-05-08] MEDS: KETOROLAC 30 MG/ML VIAL IVP SCH ×3 (01:33→13:06)
[2021-05-08 04:32] VITALS: BP 110/73
[2021-05-08] MEDS: ACETAMINOPHEN 500 MG TAB (TYLENOL) PO SCH ×2 (04:34→13:06)
[2021-05-08] MEDS: LACTATED RINGERS 1,000 ML IV SCH (06:32)
[2021-05-08 08:00] VITALS: BP 142/65
[2021-05-08] MEDS ORDERED: TADALAFIL 20 MG PO SCH (09:00)
[2021-05-08] MEDS ORDERED: NON-FORMULARY MEDICATION 1 EA EA (Escitalopram Oxalate 10 MG) PO SCH (09:00)
[2021-05-08] MEDS ORDERED: SPIRONOLACTONE 100 MG (ALDACTONE) TABLET PO SCH (09:00)
[2021-05-08] MEDS: PANTOPRAZOLE 40 MG (PROTONIX) VIAL IVP SCH (09:14)
[2021-05-08] MEDS: GABAPENTIN 600 MG (NEURONTIN) TAB PO SCH ×2 (09:15→13:06)
[2021-05-08 12:00] VITALS: BP 103/59
--- NOTE | 2021-05-08 12:31 | Progress Note - Surgery ---
Subjective Time Seen by a Provider: 09:13 Subjective/Events-last exam Pt seen and examined, states he was able to urinate and had a BM this am. Tolerating diet (scrambled eggs and sausage this am) and pain well controlled. Review of Systems General: No Chills, No Night Sweats Pulmonary: No Dyspnea, No Cough Cardiovascular: No: Chest Pain, Palpitations Gastrointestinal: Abdominal Pain (very minimal); No: Nausea, Vomiting Objective Exam Vital Signs Date Time Temp Pulse Resp B/P (MAP) Pulse Ox O2 Delivery O2 Flow Rate FiO2 05/08/21 12:00 36.6 102 20 103/59 (74) 98 Nasal Cannula 3.00 05/08/21 09:00 99 Nasal Cannula 2.00 05/08/21 08:00 35.6 94 18 142/65 (90) 100 Nasal Cannula 3.00 05/08/21 04:32 35.9 82 20 110/73 (85) 100 Nasal Cannula 3.00 05/07/21 23:15 36.3 88 20 93/61 (72) 96 Nasal Cannula 3.00 05/07/21 20:15 Nasal Cannula 3.00 05/07/21 19:44 36.6 87 20 95/58 (70) 95 Nasal Cannula 3.00 05/07/21 15:30 36.5 114 20 104/63 (77) 94 Nasal Cannula 3.00 I & O 05/08/21 06:59 Intake Total 2480 ml Output Total 850 ml Balance 1630 ml Capillary Refill : Less Than 3 Seconds General Appearance: No Apparent Distress, Obese HEENT: PERRL/EOMI, Moist Mucous Membranes Neck: No Thyromegaly Respiratory: Lungs Clear, Normal Breath Sounds, No Accessory Muscle Use, No Respiratory Distress Cardiovascular: No Murmur, Irregularly Irregular (loudest at 2nd intercostal space on left side) Peripheral Pulses: 2+ Dorsalis Pedis (R), 2+ Left Dors-Pedis (L), 2+ Radial Pulses (R), 2+ Radial Pulses (L) Gastrointestinal: soft, tenderness (very minimal at midline incision), other (Incisions c/d/i) Extremity: No Calf Tenderness, No Pedal Edema Neurologic/Psychiatric: Alert, Oriented x3 Results Lab Microbiology 05/06/21 MRSA Screen - Final, Complete MRSA not isolated Assessment/Plan Assessment/Plan Assessment/Plan S/P Left colon resection Pulmonary HTN Chronic Atrial Fibrillation Plan to D/C IV and D/C home. He was told to restart Eliquis on Satuday. Told to continue ambulation and IS use at home. Iincrease diet slowly as tolerated. NAOMI HODGE DO May 08, 2021 12:31
[2021-05-08] MEDS ORDERED: ACHD5005 PO (12:32)
--- NOTE | 2021-05-08 12:34 | Discharge Inst-Surgical ---
Discharge Inst-Surgical Depart Medication/Instructions New, Converted or Re-Newed RX: Transmitted to Pharmacy Patient Instructions Follow up Appt: Make appointment for next week. [phone] Instructions: No lifting greater than 20 pounds. No strenuous activity. May shower in 24 hours, no tub bath or soaking. Use incentive spirometer at home as directed. No Smoking Skin/Wound Care: You need to leave the lauro in place and come into the office to have them removed. Symptoms to Report: Appetite Changes, Extremity Discoloration, Numbness/Tingling, Swelling Increased, Bleeding Excessive, Eyesight Changes, Pain Increased, Urine Color Change, Constipation(Persistent), Fever over 101 degree F, Pain/Pressure in chest, Urinating Difficulty, Cough Up/Vomit Blood, Heart Beat Irreg/Pounding, Pain/Pressure in jaw, Cramps in feet or legs, Lightheadedness, Pain/Pressure in shoulder, Diarrhea(Persistent), Memory Changes Suddenly, Questions/Concerns, Weight gain consecutive days, Dizziness/Fainting, Nausea/Vomiting, Shortness of Breath, Weight gain over 2 pounds If questions or concerns contact your physician Or seek help at emergency department. Activity Activity as Tolerated: Yes Activity Instructions: Avoid Stress to Incision Driving Instructions: No Driving/Refer to Diet Discharge Diet: No Restrictions (increased fluids and fiber) If Any Problems/Questions/Issu: Contact Your Physician, Go to Emergency Room Skin/Wound Care Infection Signs and Symptoms: Increased Redness, Foul Odor of Wound, Increased Drainage, Skin Itchy or Has a Rash, Increased Swelling, Temperature Above 101 F Bathing Instructions: Shower Stitches/Gilberts/Dermabond Dis: Care of NAOMI Murrieta DO May 08, 2021 12:34
== END 2021-05-08 13:00 | disposition home or self-care (01) | DRG 330 ==
LOC: 4TH 05:55 → SURG 08:56 → 4TH 14:08
PROVIDERS: ADMIT Surgery; ATTEND Surgery
PROC: 0DTL0ZZ Resection of Transverse Colon, Open Approach (ICD-10-PCS; principal; 2021-05-06 11:15)
DX: K63.9 Disease of intestine, unspecified (principal); I48.20 Chronic atrial fibrillation, unspecified; Z99.81 Dependence on supplemental oxygen; I27.20 Pulmonary hypertension, unspecified; D64.9 Anemia, unspecified; D72.829 Elevated white blood cell count, unspecified; I95.9 Hypotension, unspecified
CPT/HCPCS: 36415; 80048; 85007; 85027; 86850; 86900; 86901; 87081; 94664

== ENCOUNTER 2021-05-27 12:30 | Outpatient (RCR) | payer MEDICARE, MEDICAID ==
[~2021-05-27 12:30] MED LIST changes: +ACHD5005 PO; +FURO40TA4 PO; +SPIR50TA4 PO; +TADA20TA43 PO
[2021-05-27 13:53] LABS: BASOPHILS % (AUTO) 0 % (0-10); EOSINOPHILS # (AUTO) 0.1 10^3/uL (0.0-0.3); EOSINOPHILS % (AUTO) 0 % (0-10); HEMATOCRIT 36 % (40-54); HEMOGLOBIN 10.7 g/dL (13.3-17.7); LYMPHOCYTES # (AUTO) 1.5 10^3/uL (1.0-4.0); LYMPHOCYTES % (AUTO) 13 % (12-44); MEAN CORPUSCULAR HEMOGLOBIN 22 pg (25-34); MEAN CORPUSCULAR HGB CONC 30 g/dL (32-36); MEAN CORPUSCULAR VOLUME 76 fL (80-99); MEAN PLATELET VOLUME 8.8 fL (9.0-12.2); MONOCYTES # (AUTO) 1.2 10^3/uL (0.0-1.0); MONOCYTES % (AUTO) 11 % (0-12); NEUTROPHILS # (AUTO) 8.4 10^3/uL (1.8-7.8); NEUTROPHILS % (AUTO) 74 % (42-75); PLATELET COUNT 490 10^3/uL (130-400); WHITE BLOOD COUNT 11.4 10^3/uL (4.3-11.0)
[2021-05-27 14:14] LABS: BILIRUBIN,TOTAL 0.6 MG/DL (0.1-1.0); CALCIUM 9.6 MG/DL (8.5-10.1); CREATININE SERUM 1.27 MG/DL (0.60-1.30); POTASSIUM 4.1 MMOL/L (3.6-5.0); TOTAL PROTEIN 7.6 GM/DL (6.4-8.2)
[2021-06-09] MEDS ORDERED: FERR-84 PO (13:58)
[2021-06-09] MEDS ORDERED: ASCO-262 PO (13:58)
[2021-06-09] MEDS ORDERED: CYAN500T44 PO (13:58)
[2021-06-09] MEDS ORDERED: DILT120C53 PO (13:58)
[2021-06-09] MEDS ORDERED: ZINC50TA58 PO (13:58)
== END 2021-06-08 | disposition home or self-care (01) ==
LOC: ONC 12:30
PROVIDERS: ATTEND Internal Medicine Hematology & Oncology
DX: Z45.2 Encounter for adjustment and management of vascular access device (principal); C18.9 Malignant neoplasm of colon, unspecified
CPT/HCPCS: 80053; 82378; 82728; 83540; 83550; 85025; G0463; 36415; 99214

== ENCOUNTER → 2021-06-01 | Outpatient (CLI) | payer MEDICARE, MEDICAID ==
[~2021-06-01] MED LIST changes: +CATHETER FLUSH 10 ML SYR IV PRN; +HOLD METFORMIN - RECEIVED CONTRAST 20 ML VIAL IV SCH; +IOHEXOL 350 MG/ML 100 ML (OMNIPAQUE 350) VIAL IV ONE; +NS 100 ML (IVPB) BAG IV ONE
--- NOTE | 2021-06-01 16:30 | Diagnostic Imaging Report ---
INDICATION: Colon cancer, history of partial bowel resection. TECHNIQUE: Pre and post intravenous contrast axial imaging of the abdomen and pelvis and post contrast axial imaging of the chest were performed. Auto Exposure Controls were utilized during the CT exam to meet ALARA standards for radiation dose reduction. COMPARISON: There is no prior study for comparison. FINDINGS: CT CHEST: There is cardiomegaly. There are no enlarged mediastinal or hilar nodes. There is a minimal trace of pleural fluid on the left side. There is some left basilar scarring or atelectasis. There is some minimal right basilar scarring as well as a calcified granuloma in the right lung. There are no suspicious pulmonary nodules. There is no adenopathy in the axillary regions, mediastinum, or geoff. There is no overt bony abnormality in the chest. CT ABDOMEN/PELVIS: The liver shows mild diffuse low-density change, compatible with fatty infiltration. There is no focal liver mass. The gallbladder, spleen, adrenals, and pancreas all appear normal. The kidneys bilaterally are unremarkable. The retroperitoneum shows no adenopathy. There is no ascites. There is a large collection of gas with an air/fluid level seen in the left upper quadrant. On coronal images, this appears to arise from the superior portion of the left colon, compatible with a contained leak. This finding may be chronic. The collection measures about 16.2 x 6.1 cm. A small amount of free air is also noted. IMPRESSION: CT CHEST: There are chronic changes in the lung bases with some scarring or atelectasis. There is no evidence of metastatic disease in the chest. CT ABDOMEN/PELVIS: There is no evidence of metastatic disease. There is a large collection of gas with a small amount of fluid in the left upper quadrant which appears to be contiguous with the superior portion of the left colon, compatible with a contained leak. There are small areas of free air noted which may be from this source. There is no sign of bowel obstruction. Dictated by: Dictated on workstation # [id number]
== END ==
LOC: RAD 10:15
PROVIDERS: ATTEND Internal Medicine Hematology & Oncology
DX: C18.9 Malignant neoplasm of colon, unspecified (principal); Z90.49 Acquired absence of other specified parts of digestive tract; R14.0 Abdominal distension (gaseous); J98.8 Other specified respiratory disorders
CPT/HCPCS: 71260; 74178

== ENCOUNTER → 2021-06-04 | Outpatient (CLI) | payer MEDICARE, MEDICAID ==
[~2021-06-04] VITALS: Ht 157 cm; Wt 121.5 kg
[~2021-06-04] MED LIST changes: -CATHETER FLUSH 10 ML SYR IV PRN; -HOLD METFORMIN - RECEIVED CONTRAST 20 ML VIAL IV SCH; +HYDROcodone/APAP 5 MG/325 MG (LORTAB) TAB PO PRN; -IOHEXOL 350 MG/ML 100 ML (OMNIPAQUE 350) VIAL IV ONE; +LIDOCAINE 1% INJ 50 ML (XYLOCAINE) VIAL IJ ONE; +LIDOCAINE 1% INJ 50 ML (XYLOCAINE) VIAL ONE; +MIDAZOLAM 2 MG/2 ML (VERSED) VIAL INJ ONE; +MIDAZOLAM 2 MG/2 ML (VERSED) VIAL ONE; -NS 100 ML (IVPB) BAG IV ONE; +NS IV 1000 ML 1,000 ML IV SCH; +NS IV 1000 ML 1,000 ML ONE; +fentaNYL INJ 100 MCG/2 ML AMP INJ ONE; +fentaNYL INJ 100 MCG/2 ML AMP ONE
[2021-06-04 13:45] LABS: HEMATOCRIT 36 % (40-54); HEMOGLOBIN 10.7 g/dL (13.3-17.7); MEAN CORPUSCULAR HEMOGLOBIN 22 pg (25-34); MEAN CORPUSCULAR HGB CONC 30 g/dL (32-36); MEAN CORPUSCULAR VOLUME 74 fL (80-99); MEAN PLATELET VOLUME 8.7 fL (9.0-12.2); PLATELET COUNT 342 10^3/uL (130-400); WHITE BLOOD COUNT 21.7 10^3/uL (4.3-11.0)
[2021-06-04 13:57] LABS: INR 1.3 (0.8-1.4); PROTHROMBIN TIME PATIENT 16.2 SEC (12.2-14.7)
[2021-06-04 14:45] VITALS: BP 130/80
[2021-06-04 15:04] VITALS: BP 110/84
[2021-06-04 15:10] VITALS: BP 97/75
[2021-06-04 15:15] VITALS: BP 95/74
[2021-06-04 15:20] VITALS: BP 132/73
--- NOTE | 2021-06-04 15:41 | Pre-Op Note & Conscious Sedat ---
Pre-Operative Progress Note H&P Reviewed The H&P was reviewed, patient examined and no changes noted. Date H&P Reviewed: Jun 04, 2021 Time H&P Reviewed: 14:00 Pre-Op Diagnosis: abdomial abscess Conscious Sedation Pre-Proced Time 14:00 ASA Score 2 For ASA 3 and 4: Consider anesthesia and medical clearance. Also, for patients with a history of failed moderate sedation consider anesthesia. Airway Lungs Heart ASA score ASA 1: a normal healthy patient ASA 2: a patient with a mild systemic disease (mid diabetes, controlled hypertension, obesity ASA 3: a patient with a severe systemic disease that limits activity (angina, COPD, prior Myocardial infarction) ASA 4: a patient with an incapacitating disease that is a constant threat to life (CHF, renal failure) ASA 5: a moribund patient not expected to survive 24 hrs. (ruptured aneurysm) ASA 6: a declared brain- patient whose organs are being harvested. For emergent operations, add the letter E after the classification Mallampati Classification Grade 2 Sedation Plan Analgesia, Amnesia, Plan communicated to team members, Discussed options with nikki schuster/fam, Discussed risks with patient/fam The patient is an appropriate candidate to undergo the planned procedure, sedation, and anesthesia. The patient immediately re-assessed prior to indication. JAMIR KERN MD Jun 04, 2021 15:41
--- NOTE | 2021-06-04 16:39 | Diagnostic Imaging Report ---
INDICATION: Abdominal abscess. Patient presents for CT-guided drain placement. TECHNIQUE: All CT scans use one or more of the following dose optimizing techniques: automated exposure control, MA and/or KvP adjustment based on patient size and exam type or iterative reconstruction. FINDINGS: Patient was brought to the CT suite and placed on table in the supine position. Axial imaging through the abdomen was performed to evaluate appropriate entry site. The procedure was performed utilizing conscious sedation with radiology nursing and constant patient monitoring. Patient was given a total of 50 mcg of fentanyl intravenously and 1 mg of Versed intravenously. Total procedure time was 16 minutes. Left upper quadrant of the abdomen was prepped and draped in the usual sterile fashion. Small amount of 1% lidocaine was utilized for local anesthesia. A Yueh catheter was advanced into the large gas and fluid collection in the left upper quadrant of the abdomen. The Yueh was exchanged over an .035 Amplatz guidewire. 6-Bahraini and 8-Bahraini dilators were used to dilate the tract. 8.5-Bahraini all-purpose pigtail drain was then placed over the guidewire with pigtail formed. The gas and fluid collection was decompressed. The drain was placed to a bulb suction device. Patient tolerated the procedure well and left the department in stable condition. IMPRESSION: Successful CT-guided all-purpose drain placement into the large gas and fluid collection in the left upper quadrant, utilizing conscious sedation. Dictated by: Dictated on workstation # [id number]
== END ==
LOC: RAD 14:30
PROVIDERS: ATTEND Surgery
DX: K65.1 Peritoneal abscess (principal); Z98.890 Other specified postprocedural states
CPT/HCPCS: 77012; 85027; 85610; 85730; 99156; C1729 ×2; C1769; 36415

== ENCOUNTER 2021-06-09 11:00 | Inpatient (IN) | payer MEDICARE, MEDICAID ==
[~2021-06-09] VITALS: Ht 172 cm; Wt 112.0 kg
[~2021-06-09 11:00] MED LIST changes: -HYDROcodone/APAP 5 MG/325 MG (LORTAB) TAB PO PRN; -LIDOCAINE 1% INJ 50 ML (XYLOCAINE) VIAL IJ ONE; -LIDOCAINE 1% INJ 50 ML (XYLOCAINE) VIAL ONE; -MIDAZOLAM 2 MG/2 ML (VERSED) VIAL INJ ONE; -MIDAZOLAM 2 MG/2 ML (VERSED) VIAL ONE; -NS IV 1000 ML 1,000 ML IV SCH; -NS IV 1000 ML 1,000 ML ONE; -fentaNYL INJ 100 MCG/2 ML AMP INJ ONE; -fentaNYL INJ 100 MCG/2 ML AMP ONE
--- OUTSIDE RECORDS SUMMARY | 2021-06-09 11:10 | XMS REPORT | Clinical Summary ---
Author Author [facility] Organization [facility] Address Unknown Phone Unavailable Care Team Providers Care Locker Room Manager Name Role Phone Dannielle Marin MD Unavailable Marvin Plaat MD Unavailable Duane Kuhn MD, H. William Unavailable [phone] Arben Wright MD Unavailable Staci Oneill MD Unavailable Rosaura Danielle MD Unavailable Lynn Arredondo RN Unavailable Unavailable Jeff Mazariegos MD Unavailable Niall Robles DO Unavailable Shae Vaughn Unavailable Unavailable No Pcp, Na PCP Unavailable Source Comments Some departments are not documenting in the electronic medical record. If you d o not see the information that you expected, contact Release of Information in [facility] Information Management department at [phone] for further assistan ce in locating additional [...] MEALS AND A FULL GLASS OF WATER Active Problems Problem Noted Date Chronic atrial [...] Description Date Type Specialty Marvin Plata MD Primary pulmonary hypertension (HCC) (Pr imary Dx) 05/08/2021 Orders Only Pulmonology Marvin Plata MD 04/13/2021 Refill Pulmonology from [...] PHOTOCOAGULATION performed by Bernice Jernigan MD at [facility] Medical History Medical History Date Comments [...] Assigned at Date Recorded Not on file Obstetrics History Last Filed Vital Signs Reading Time Taken [...] Done Comments MEDICARE ANNUAL WELLNESS 1952 VISIT DTAP/TDAP VACCINES (1 - 1970 Tdap) PHYSICAL (COMPREHENSIVE) 1970 EXAM COLORECTAL CANCER 2002 SCREENING SHINGLES RECOMBINANT 2002 VACCINE (1 of 2) ABDOMINAL AORTIC ANEURYSM 2017 SCREENING PNEUMONIA (PPSV23) 2017 VACCINE (1 of 1 - PPSV23) INFLUENZA VACCINE 11/09/2020 02/22/2019, 02/23/2018, 04/29/2016, Additional history exists COVID-19 VACCINE (3 - 11/12/2020 06/12/2020, Booster for Moderna 05/14/2020 series) HEPATITIS C SCREENING Completed 04/29/2016, 06/23/2007 Results Not on filefrom Last 3 Months Insurance Type Payer Benefit Subscriber ID Effective Phone Address Plan / Dates Group Medicare MEDICARE MEDICARE [id number] 2008- [phone] [place] [address] [employer] MEDICAID AETNA [id number] 2018-P [phone] [address] [address] [place] [address] Advance Directives Patient 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 Teacher Explanation Type Date Recorded Advance Directive/DPOA Advance [...] needed Care Teams Start Date End Date Locker Room Manager Relationship Specialty 08/17/18 No Pcp, Na PCP - General 02/09/10 Dannielle Marin MD [address] [place] [address] 02/09/10 Marvin Plata MD [address] [facility] [address] [place] [address] 02/09/10 Kizzy Zepeda Jr., MD [id number] [place] [address] 02/09/10 Arben Wright MD 4000 [facility] IHX013 [place] [address] 02/09/10 Staci Oneill MD [address] [place] [address] 02/09/10 Rosaura Danielle MD [address] [place] [address] 06/14/10 Lynn Arredondo, RN 06/15/10 Jeff Mazariegos MD Geriatric [address] [facility] [place] [address] Medicine 11/13/13 Niall Robles, DO Internal [address] [place] [address] [address] 11/19/13 Shae Vaughn
--- OUTSIDE RECORDS SUMMARY | 2021-06-09 11:10 | XMS REPORT | Encounter Summary ---
Author Author [facility] Organization [facility] Address Unknown Phone Unavailable Care Team Providers Care Pension Agent Name Role Phone Dannielle Marin MD Unavailable Marvin Plata MD Unavailable Duane Kuhn MD, H. William Unavailable [phone] Arben Wright MD Unavailable Staci Oneill MD Unavailable Rosaura Danielle MD Unavailable Lynn Arredondo RN Unavailable Unavailable Jeff Mazariegos MD Unavailable Niall Robles DO Unavailable Shae Vaughn Unavailable Unavailable No Pcp, Na PCP Unavailable Reason for Referral * Test (Routine) - New Request Diagnoses / Procedures Referred By [facility] Primary pulmonary hypertension (HCC) Procedures 2D + DOPPLER ECHO Marvin Plata MD [address] Orth[facility] Lvl [address] [place] [id number] Referral ID Status Reason Start Date Expiration Visits Vi sits Date Requested Authorized [id number] New Request 05/08/2021 05/08/2022 1 1 TOP ANALYST Encounter Details Care Team Description Date Type Department Marvin Plata MD [address] [facility] [address] [place] [id number] Primary pulmonary hypertension (HCC) (Pr imary Dx) 05/08/2021 Orders Only Pulmonology: [facility] ge[facility], [facility] [address] [address] [id number] Social History Date Tobacco Use Types Packs/Day [...] impairment: No documented as of this encounter Plan of Treatment Order Schedule Name Type Priority Associated Diag noses Expected: 06/08/2021, Expires: 3 2D + DOPPLER ECHO ECHO Routine Primary pulm onary hypertension (HCC) Expected: 06/08/2021, Expires: 3 PFT EXERCISE OXIMETRY PFT Routine Primary pulmonary hypertension (HCC) documented as of this encounter Visit Diagnoses Diagnosis Primary pulmonary hypertension (HCC) - Primary Primary pulmonary hypertension documented in this encounter Additional Health Concerns Noted Time Assessment 08/04/2020 8:20 AM CDT A fall risk assessment has been complet ed for the patient 08/04/2020 8:19 AM CDT PHQ-2 Depression Total Score: 2 documented as of this encounter Care Teams Start Date End Date Pension Agent Relationship Specialty 08/17/18 No Pcp, Na PCP - General 02/09/10 Dannielle Marin MD [address] [place] [address] 02/09/10 Marvin Plata MD [address] [facility] [address] [place] [address] 02/09/10 Kizzy Zepeda Jr., MD [id number] [place] [address] 02/09/10 Arben Wright MD 4000 [facility] [id number] [place] [address] 02/09/10 Staci Oneill MD [address] [place] [address] 02/09/10 Rosaura Danielle MD [address] [place] [address] 06/14/10 Lynn Arredondo, RN 06/15/10 Jeff Mazariegos MD Geriatric 4000 [facility] [place] [address] Medicine 11/13/13 Niall Robles DO Internal [address] [place] [address] Medicine [facility] [address] [place] [address] 11/19/13 Shae Vaughn documented as of this encounter
--- OUTSIDE RECORDS SUMMARY | 2021-06-09 11:10 | XMS REPORT | Encounter Summary ---
Author Author [facility] Organization [facility] Address Unknown Phone Unavailable Care Team Providers Care Oil Paint Shader Name Role Phone Dannielle Marin MD Unavailable Marvin Plata MD Unavailable Duane Kuhn MD, H. William Unavailable [phone] Arben Wright MD Unavailable Staci Oneill MD Unavailable Rosaura Danielle MD Unavailable Lynn Arredondo RN Unavailable Unavailable Jeff Mazariegos MD Unavailable Niall Robles DO Unavailable Shae Vaughn Unavailable Unavailable No Pcp, Na PCP Unavailable Reason for Visit * Reason Comments Medication Refill Encounter Details Care Team Description Date Type Department Marvin Plata MD [address] Orth[facility] [place] [address] [place] [address] 04/13/2021 Refill Pulmonology: Reyes Hopper ampus, Medical [facility] [address], [address] [address] Social History Date Tobacco Use [...] encounter Care Teams Start Date End Date Oil Paint Shader Relationship Specialty 08/17/18 No Pcp, Na PCP - General 02/09/10 Dannielle Marin MD [address] [place] [address] 02/09/10 Marvin Plata MD [address] [facility] [address] [place] [address] 02/09/10 Kizzy Zepeda Jr., MD 4000 [facility] [address] [place] [address] 02/09/10 Arben Wright MD 4000 [facility] [address] [place] [address] 02/09/10 Staci Oneill MD [address] [place] [address] 02/09/10 Rosaura Danielle MD [address] [place] [address] 06/14/10 Lynn Arredondo, RN 06/15/10 Jeff Mazariegos MD Geriatric 4000 [place] [address] Medicine 11/13/13 Niall Robles, DO Internal [facility] Medicine [facility] [address] [place] [address] 11/19/13 Shae Vaughn documented as of this encounter
[2021-06-09 12:00] VITALS: BP 96/71
--- NOTE | 2021-06-09 12:13 | Consultation - Surgery ---
ALEK TYSON 06/09/21 1213: History of Present Illness History of Present Illness Patient Consulted On(christine/time) 06/09/21 12:11 Date Seen by Provider: Jun 09, 2021 Time Seen by Provider: 12:20 Reason for Visit: Anastomotic leak of intestine History of Present Illness 70 yo pt with AFib presents with anastomotic leakage of his intestine. Pt had a laparoscopic hand-assisted colon resection of a left colonic mass with a takedown of his splenic flexure on 05/06. He had an abscess develop at the site after surgery, which was drained on 06/04. His has been draining it up to 6x/day. The drainage went from smelling like "rotting flesh" to smelling like ammonia. Its color also shifted from red, to purple, and now is brown. The anastomotic site appears to be leaking at the dressing as well, with some of the leakage on his shirt. He has pain in his LUQ at the site and is tender in the epigastric region as well. It is a 6/10 sore pain. He has not tried anything to make it better. Walking and movement makes it worse. Pt reports spiking a fever and having chills the last few evenings. He is regularly having one bowel movement per day postop, and has not noticed any blood in his stools. The pt is on a CLD. His blood thinners have been held since his surgery on May 06. Pt denies CP, SOB, and N/V at this time. Allergies and Home Medications Allergies Coded Allergies: morphine (Unverified Allergy, Unknown, 04/29/21) Patient Home Medication List ALPRAZolam (ALPRAZolam) 0.25 Mg Tablet, 0.125-0.25 MG PO DAILY PRN for ANXIETY, (Reported) Entered as Reported by: CRESENCIO STRONG on 05/04/21 1013 Last Action: Reviewed Apixaban (Eliquis) 5 Mg Tablet, 5 MG PO BID, (Reported) Entered as Reported by: CRESENCIO STRONG on 05/04/21 1013 Last Action: Reviewed Ascorbate Calcium (Vitamin C) 500 Mg Tablet, 500 MG PO DAILY, (Reported) Entered as Reported by: MELANIE CONSTANTINO on 06/09/21 6888 Last Action: Reviewed Citalopram Hydrobromide (Citalopram HBr) 20 Mg Tablet, 20 MG PO DAILY, (Reported) Entered as Reported by: CRESENCIO STRONG on 05/04/21 101 Last Action: Reviewed Cyanocobalamin (Vitamin B-12) (B-12) 500 Mcg Tablet, 500 MCG PO DAILY, (Reported) Entered as Reported by: MELANIE CONSTANTINO on 06/09/211357 Last Action: Reviewed Diltiazem HCl (Cartia Xt) 120 Mg Cap.er.24h, 120 MG PO DAILY, (Reported) Entered as Reported by: MELANIE CONSTANTINO on 06/09/211357 Last Action: Reviewed Ferrous Sulfate (Iron) 325 Mg Tablet, 325 MG PO DAILY, (Reported) Entered as Reported by: MELANIE CONSTANTINO on 06/09/211357 Last Action: Reviewed Furosemide (Furosemide) 40 Mg Tablet, 80 MG PO DAILY, (Reported) Entered as Reported by: MELANIE CONSTANTINO on 05/07/211124 Last Action: Reviewed Gabapentin (Gabapentin) 600 Mg Tablet, 600 MG PO TID, (Reported) Entered as Reported by: CRESENCIO STRONG on 05/04/211012 Last Action: Reviewed Potassium Chloride (Potassium Chloride) 20 Meq Tab.er.prt, 40 MEQ PO HS, (Reported) Entered as Reported by: CRESENCIO STRONG on 05/04/211012 Last Action: Reviewed Spironolactone (Spironolactone) 50 Mg Tablet, 50 MG PO DAILY, (Reported) Entered as Reported by: MELANIE CONSTANTINO on 05/07/211124 Last Action: Reviewed Tadalafil (Tadalafil) 20 Mg Tablet, 20 MG PO DAILY, (Reported) Entered as Reported by: MELANIE CONSTANTINO on 05/07/211124 Last Action: Reviewed Zinc (Zinc) 50 Mg Tablet, 50 MG PO DAILY, (Reported) Entered as Reported by: MELANIE CONSTANTINO on 06/09/211357 Last Action: Reviewed Discontinued Medications Diltiazem HCl (Diltiazem 24Hr Cd) 120 Mg Cap.er.24h, 120 MG PO DAILY, (Reported) Discontinued Reason: Duplicate Order Entered as Reported by: CRESENCIO STRONG on 05/04/21 101 Last Action: Discontinued Hydrocodone Bit/Acetaminophen (HYDROcodone/APAP 5 MG/325 MG TAB) 1 Tab Tab, 1 TAB PO Q8H PRN for PAIN-MODERATE (5-7) Discontinued Reason: No Longer Taking Prescribed by: NAOMI HODGE on 05/08/21 1233 Last Action: Discontinued Past Tjvapqu-Pypvsr-Porvly Hx Patient Social History Smoking Status: Light Tobacco Smoker Type Used: Cigars 2nd Hand Smoke Exposure: No Recent Hopitalizations: No Alcohol Use?: Yes Have you traveled recently?: No Immunizations Up To Date Date of Influenza Vaccine: Jan 09, 2021 Seasonal Allergies Seasonal Allergies: No Surgeries History of Surgeries: Yes (endo 05/05/21) Surgeries: Appendectomy Respiratory History of Respiratory Disorde: No Cardiovascular History of Cardiac Disorders: Yes Cardiac Disorders: Atrial Fibrillation Neurological History of Neurological Disord: No Genitourinary History of Genitourinary Disor: No Gastrointestinal History of Gastrointestinal Di: No Musculoskeletal History of Musculoskeletal Dis: No Endocrine History of Endocrine Disorders: No HEENT History of HEENT Disorders: No Cancer History of Cancer: No Psychosocial History of Psychiatric Problem: No Integumentary History of Skin or Integumenta: No Blood Transfusions History of Blood Disorders: No Family Medical History Significant Family History: Cancer (mom had ovarian cancer; dad had lung) Review of Systems-General Constitutional: No chills; dizziness; No fever (not currently, but reports spiking a fever in the evenings) EENTM: No hearing loss, No vision loss Respiratory: No cough, No short of breath Cardiovascular: No chest pain, No palpitations Gastrointestinal: abdominal pain; No diarrhea, No nausea, No vomiting; other (no blood in stool noticed) Genitourinary: No dysuria, No hematuria Musculoskeletal: No muscle pain, No neck pain Skin: No rash; other (anastomotic site draining; drainage from abscess) Psychiatric/Neurological: Anxiety, Depressed; Denies Headache, Denies Seizure Physical Exam-General Problems Physical Exam Vital Signs Vital Signs - First Documented 06/09/21 11:23 O2 Delivery Room Air Capillary Refill : General Appearance: WD/WN, no apparent distress Eyes: Bilateral Eye Normal Inspection Respiratory: lungs clear, normal breath sounds, no respiratory distress Cardiovascular: no murmur, irregularly irregular Peripheral Pulses: 2+ Dorsalis Pedis (R), 2+ Left Dors-Pedis (L), 2+ Radial Pulses (R), 2+ Radial Pulses (L) Gastrointestinal: soft, guarding, tenderness (epigastric; at drainage site) Extremities: normal inspection, no pedal edema Neurologic/Psychiatric: alert, normal mood/affect, oriented x 3 Skin: normal color, warm/dry Assessment/Plan Assessment/Plan Assessment/Plan Abdominal pain Abscess draining AFib Hypotension Continue Cipro/Met IVFs Change dressings regularly Continue holding blood thinner Surgical intervention tomorrow Monitor labs and vitals NAOMI HODGE DO 06/09/21 3308: History of Present Illness History of Present Illness Time Seen by Provider: 10:51 History of Present Illness Pt is a 70 yo male who presented to my office with change in the drainage from recently placed drain. He had a near obstructing colon lesion and underwent resection with primary anastomosis. A subsequent CT showed a large air collection with minimal fluid and drain was placed; which only got out minimal fluid. He came to the office because the drainage increased, was foul smelling and he was beginning to feel weaker. He also stated he was starting to have increasing abdominal pain and fever at home. Allergies and Home Medications Allergies Coded Allergies: morphine (Unverified Allergy, Unknown, 04/29/21) Patient Home Medication List Home Medication List Reviewed: Yes ALPRAZolam (ALPRAZolam) 0.25 Mg Tablet, 0.125-0.25 MG PO DAILY PRN for ANXIETY, (Reported) Entered as Reported by: CRESENCIO STRONG on 05/04/21 1013 Last Action: Reviewed Apixaban (Eliquis) 5 Mg Tablet, 5 MG PO BID, (Reported) Entered as Reported by: CRESENCIO STRONG on 05/04/21 1013 Last Action: Reviewed Ascorbate Calcium (Vitamin C) 500 Mg Tablet, 500 MG PO DAILY, (Reported) Entered as Reported by: MELANIE CONSTANTINO on 06/09/21 1358 Last Action: Reviewed Citalopram Hydrobromide (Citalopram HBr) 20 Mg Tablet, 20 MG PO DAILY, (Reported) Entered as Reported by: CRESENCIO STRONG on 05/04/21 1013 Last Action: Reviewed Cyanocobalamin (Vitamin B-12) (B-12) 500 Mcg Tablet, 500 MCG PO DAILY, (Reported) Entered as Reported by: MELANIE CONSTANTINO on 06/09/21 1358 Last Action: Reviewed Diltiazem HCl (Cartia Xt) 120 Mg Cap.er.24h, 120 MG PO DAILY, (Reported) Entered as Reported by: MELANIE CONSTANTINO on 06/09/21 135 Last Action: Reviewed Ferrous Sulfate (Iron) 325 Mg Tablet, 325 MG PO DAILY, (Reported) Entered as Reported by: MELANIE CONSTANTINO on 06/09/21 135 Last Action: Reviewed Furosemide (Furosemide) 40 Mg Tablet, 80 MG PO DAILY, (Reported) Entered as Reported by: MELANIE CONSTANTINO on 05/07/21 112 Last Action: Reviewed Gabapentin (Gabapentin) 600 Mg Tablet, 600 MG PO TID, (Reported) Entered as Reported by: CRESENCIO STRONG on 05/04/21 101 Last Action: Reviewed Potassium Chloride (Potassium Chloride) 20 Meq Tab.er.prt, 40 MEQ PO HS, (Reported) Entered as Reported by: CRESENCIO STRONG on 05/04/21 101 Last Action: Reviewed Spironolactone (Spironolactone) 50 Mg Tablet, 50 MG PO DAILY, (Reported) Entered as Reported by: MELANIE CONSTANTINO on 05/07/211124 Last Action: Reviewed Tadalafil (Tadalafil) 20 Mg Tablet, 20 MG PO DAILY, (Reported) Entered as Reported by: MELANIE CONSTANTINO on 05/07/21 112 Last Action: Reviewed Zinc (Zinc) 50 Mg Tablet, 50 MG PO DAILY, (Reported) Entered as Reported by: MELANIE CONSTANTINO on 06/09/211357 Last Action: Reviewed Discontinued Medications Diltiazem HCl (Diltiazem 24Hr Cd) 120 Mg Cap.er.24h, 120 MG PO DAILY, (Reported) Discontinued Reason: Duplicate Order Entered as Reported by: CRESENCIO STRONG on 05/04/21 101 Last Action: Discontinued Hydrocodone Bit/Acetaminophen (HYDROcodone/APAP 5 MG/325 MG TAB) 1 Tab Tab, 1 TAB PO Q8H PRN for PAIN-MODERATE (5-7) Discontinued Reason: No Longer Taking Prescribed by: NAOMI HODGE on 05/08/21 1233 Last Action: Discontinued Past Ycganpb-Weoadf-Lqbdmf Hx Patient Social History Smoking Status: Current Someday Smoker Type Used: Cigars Alcohol Use?: Yes Surgeries History of Surgeries: Yes Surgeries: Abdominal (colon resection) Respiratory History of Respiratory Disorde: No Cardiovascular History of Cardiac Disorders: Yes Cardiac Disorders: Atrial Fibrillation, Hypertension Neurological History of Neurological Disord: No Genitourinary History of Genitourinary Disor: No Gastrointestinal History of Gastrointestinal Di: Yes (colon cancer) Musculoskeletal History of Musculoskeletal Dis: No Endocrine History of Endocrine Disorders: No HEENT History of HEENT Disorders: No Loss of Vision: Denies Hearing Impairment: Denies Cancer History of Cancer: Yes Cancer: Colon Psychosocial History of Psychiatric Problem: Yes Behavioral Health Disorders: Anxiety, Depression Family Medical History Significant Family History: Cancer (mom had ovarian cancer; dad had lung) Review of Systems-General Constitutional: No chills; dizziness, fever (not currently, but reports spiking a fever in the evenings), malaise, weakness EENTM: No hearing loss, No vision loss Respiratory: No cough, No short of breath Cardiovascular: No chest pain; edema; No palpitations Gastrointestinal: abdominal pain; No diarrhea, No nausea, No vomiting; other (no blood in stool noticed) Genitourinary: No dysuria, No hematuria Musculoskeletal: No muscle pain, No neck pain Skin: lesions (new "spots on feet"); No rash; other (drainage from around recently placed drain) Psychiatric/Neurological: Anxiety, Depressed; Denies Headache, Denies Seizure Physical Exam-General Problems Physical Exam General Appearance: mild distress, obese Eyes: Bilateral Eye PERRL, Bilateral Eye EOMI HEENT: pharynx normal; No scleral icterus (R), No scleral icterus (L) Neck: non-tender, supple Respiratory: lungs clear, normal breath sounds, no respiratory distress, no accessory muscle use Cardiovascular: no murmur, irregularly irregular Peripheral Pulses: 2+ Dorsalis Pedis (R), 2+ Left Dors-Pedis (L), 2+ Radial Pulses (R), 2+ Radial Pulses (L) Gastrointestinal: soft, guarding; No rebound; tenderness (epigastric; at drainage site), other (purulent/feculent drainage coming out from around drain in LUQ) Back: no CVA tenderness, no vertebral tenderness Extremities: normal inspection, pedal edema, other (reddish spots on feet) Neurologic/Psychiatric: radiation safety officer II-XII nml as tested, alert, normal mood/affect, oriented x 3 Skin: normal color, warm/dry Lymphatic: no adenopathy (neck, axilla or groin) Assessment/Plan Assessment/Plan Assessment/Plan Probable Anastomotic Leak Hx of Colon cancer with recent resection and primary anastomosis Chronic Atrial Fibrillation HTN Pt was sent over directly from my office for admission, IV fluids, Blood culture, IV ABX to start after blood culture, placed on liquid diet and NPO after midnight. Plan for Exploratory Laparotomy with washout and possible resection of anastomosis with reanastomosis, possible ostomy and all other indicated procedures. Will get consent for that. I discus sed this with pt in my office, but apparently he said "I will hang myself before I get a poop bag" and therefore I will have to talk to him again about the low possibility of ostomy. Supervisory-Addendum Brief Verification & Attestation Participated in pt care: history, MDM, physical Personally performed: exam, history, MDM, supervision of care Care discussed with: Medical Student Procedures: n/a Verification and Attestation of Medical Student E/M Service A medical student performed and documented this service. I then reviewed and verified all information documented by the medical student and made modifications to such information, when appropriate. I personally performed a physical exam, medical decision making and then discussed any differences between the notes and made revisions as necessary to create one note. Naomi Hodge , 06/09/21 , 17:06 ALEK TYSON Jun 09, 2021 12:13 NAOMI HODGE DO Jun 09, 2021 16:58
[2021-06-09] MEDS: LACTATED RINGERS 1,000 ML IV SCH ×2 (13:03→17:58)
[2021-06-09] MEDS: metroNIDAZOLE 500MG/100ML IVPB 100 ML IV SCH ×2 (13:04→21:38)
[2021-06-09] MEDS: CIPROFLOXACIN IV 400MG/200ML 200 ML IV SCH (13:04)
[2021-06-09] MEDS ORDERED: ASCO-262 PO (13:58)
[2021-06-09] MEDS ORDERED: FERR-84 PO (13:58)
[2021-06-09] MEDS ORDERED: DILT120C53 PO (13:58)
[2021-06-09] MEDS ORDERED: CYAN500T44 PO (13:58)
[2021-06-09] MEDS ORDERED: ZINC50TA58 PO (13:58)
[2021-06-09 15:55] VITALS: BP 106/66
[2021-06-09 20:05] VITALS: BP 102/71
[2021-06-10] VITALS (19 sets, daily range): BP systolic 87–127; BP diastolic 49–99
[2021-06-10] MEDS ORDERED: ACETAMINOPHEN 325 MG TABLET PO ONE
[2021-06-10] MEDS ORDERED: fentaNYL INJ 100 MCG/2 ML AMP IVP PRN
[2021-06-10] MEDS ORDERED: ACETAMINOPHEN 325 MG TABLET ONE (00:06)
[2021-06-10] MEDS: CIPROFLOXACIN IV 400MG/200ML 200 ML IV SCH ×2 (01:04→12:00)
[2021-06-10] MEDS: LACTATED RINGERS 1,000 ML IV SCH ×5 (03:45→21:14)
[2021-06-10] MEDS: metroNIDAZOLE 500MG/100ML IVPB 100 ML IV SCH ×3 (05:48→21:13)
[2021-06-10 06:03] LABS: BASOPHILS # (AUTO) 0.1 10^3/uL (0.0-0.1); BASOPHILS % (AUTO) 0 % (0-10); EOSINOPHILS % (AUTO) 0 % (0-10); HEMATOCRIT 34 % (40-54); HEMOGLOBIN 10.1 g/dL (13.3-17.7); LYMPHOCYTES # (AUTO) 1.1 10^3/uL (1.0-4.0); LYMPHOCYTES % (AUTO) 7 % (12-44); MEAN CORPUSCULAR HEMOGLOBIN 22 pg (25-34); MEAN CORPUSCULAR HGB CONC 29 g/dL (32-36); MEAN CORPUSCULAR VOLUME 75 fL (80-99); MEAN PLATELET VOLUME 8.6 fL (9.0-12.2); MONOCYTES # (AUTO) 1.3 10^3/uL (0.0-1.0); MONOCYTES % (AUTO) 7 % (0-12); NEUTROPHILS # (AUTO) 14.5 10^3/uL (1.8-7.8); NEUTROPHILS % (AUTO) 85 % (42-75); PLATELET COUNT 322 10^3/uL (130-400)
[2021-06-10 06:33] LABS: ALBUMIN 2.7 GM/DL (3.2-4.5); POTASSIUM 4.3 MMOL/L (3.6-5.0)
[2021-06-10 06:34] LABS: CALCIUM 9.6 MG/DL (8.5-10.1)
[2021-06-10 06:36] LABS: TOTAL PROTEIN 6.6 GM/DL (6.4-8.2)
[2021-06-10 06:37] LABS: BILIRUBIN,TOTAL 0.6 MG/DL (0.1-1.0)
[2021-06-10 06:39] LABS: CREATININE SERUM 1.01 MG/DL (0.60-1.30)
--- NOTE | 2021-06-10 06:58 | Progress Note - Surgery ---
ALEK TYSON 06/10/21 0658: Subjective Date Seen by a Provider: Jun 10, 2021 Time Seen by a Provider: 06:40 Subjective/Events-last exam Pt made a comment during his exam about "feeling better if I were ." His nurse was notified of the comment. Pt reports feeling stronger than he did yesterday with the IVFs. Pt is in 5/10 pain this morning. He received tylenol once overnight. He had diarrhea this morning and is passing gas. Pt is slightly nauseous but has not vomited. His JPEG has a small amount of brown drainage in it. There is now dried blood around his dressings. Pt had made an emergency trip to the bathroom before I entered, so I plugged his IV stand back in and handed him is call light, phone, and oxygen. Nurse reports that he does not want an ostomy bag after this surgery. He has been NPO since midnight. Pt denies CP, palpitations, fever, chills and SOB at this time. Review of Systems General: No Chills; Malaise HEENT: No Head Aches, No Visual Changes Pulmonary: No Dyspnea, No Cough Cardiovascular: No: Chest Pain, Palpitations Gastrointestinal: Nausea, Abdominal Pain, Diarrhea; No: Vomiting Genitourinary: No Dysuria, No Frequency Musculoskeletal: No: neck pain, leg pain Neurological: No: Weakness, Change in speech Focused Exam Respiratory: Lungs Clear, Normal Breath Sounds, No Respiratory Distress Cardiovascular: Normal Peripheral Pulses, Irregularly Irregular Peripheral Pulses: 2+ Radial Pulses (R), 2+ Radial Pulses (L) Skin: warm/dry, other (chronic brown discoloration bilat shins) Objective Exam Vital Signs Date Time Temp Pulse Resp B/P (MAP) Pulse Ox O2 Delivery O2 Flow Rate FiO2 06/10/21 04:11 36.0 99 22 120/68 (85) 91 Room Air 06/10/21 00:38 36.8 06/10/21 00:16 36.8 117 20 113/64 (80) 96 Room Air 06/09/21 20:05 37.2 110 22 102/71 (81) 95 Room Air 06/09/21 19:50 95 Room Air 06/09/21 15:55 37.0 88 20 106/66 (79) 94 Room Air 06/09/21 12:00 36.8 103 20 96/71 (79) 93 Room Air 06/09/21 11:23 Room Air I & O 06/10/21 07:00 Intake Total 2255 ml Output Total 520 ml Balance 1735 ml Capillary Refill : General Appearance: No Apparent Distress, WD/WN Respiratory: Lungs Clear, No Accessory Muscle Use, No Respiratory Distress Cardiovascular: Normal Peripheral Pulses, Irregularly Irregular Peripheral Pulses: 2+ Dorsalis Pedis (R), 2+ Left Dors-Pedis (L), 2+ Radial Pulses (R), 2+ Radial Pulses (L) Gastrointestinal: soft, tenderness (epigastric; at drainage site), other (purulent/feculent drainage coming out from around drain in LUQ; now includes blood) Extremity: Normal Inspection, No Pedal Edema Neurologic/Psychiatric: Alert, Oriented x3, Depressed Affect Skin: Warm/Dry, Other (bilat brown discoloration on shins (chronic)) Results Lab Laboratory Tests 06/10/21 05:51: White Blood Count 17.0H, Red Blood Count 4.56, Hemoglobin 10.1L, Hematocrit 34L, Mean Corpuscular Volume 75L, Mean Corpuscular Hemoglobin 22L, Mean Corpuscular Hemoglobin Concent 29L, Red Cell Distribution Width 16.8H, Platelet Count 322, Mean Platelet Volume 8.6L, Immature Granulocyte % (Auto) 1, Neutrophils (%) (Auto) 85H, Lymphocytes (%) (Auto) 7L, Monocytes (%) (Auto) 7, Eosinophils (%) (Auto) 0, Basophils (%) (Auto) 0, Neutrophils # (Auto) 14.5H, Lymphocytes # (Auto) 1.1, Monocytes # (Auto) 1.3H, Eosinophils # (Auto) 0.0, Basophils # (Auto) 0.1, Immature Granulocyte # (Auto) 0.1, Sodium Level 132L, Potassium Level 4.3, Chloride Level 95L, Carbon Dioxide Level 26, Anion Gap 11, Blood Urea Nitrogen 14, Creatinine 1.01, Estimat Glomerular Filtration Rate 81, BUN/Creatinine Ratio 14, Glucose Level 132H, Calcium Level 9.6, Corrected Calcium 10.6H, Total Bilirubin 0.6, Aspartate Amino Transf (AST/SGOT) 18, Alanine Aminotransferase (ALT/SGPT) 14, Alkaline Phosphatase 77, Total Protein 6.6, Albumin 2.7L Assessment/Plan Assessment/Plan Assessment/Plan Probable Anastomotic Leak Hx of Colon cancer with recent resection and primary anastomosis Chronic Atrial Fibrillation HTN IV fluids Pain management Continue Met/Cipro NPO currently Awaiting exploratory laparotomy with washout and possible resection of anastomosis with reanastomosis, possible ostomy, and all other indicated procedures Will need new consent for ostomy (originally had it, pt changed his mind yesterday) JOSE SALCEDO DO 06/10/21 1028: Subjective Time Seen by a Provider: 09:50 Subjective/Events-last exam Pt seen and examined, states he is actually doing better today and room smells less. He has minimal pain. His main concern is the possibility of an ostomy. Review of Systems General: No Chills; Malaise Pulmonary: No Dyspnea, No Cough Cardiovascular: No: Chest Pain, Palpitations Gastrointestinal: Nausea, Abdominal Pain, Diarrhea; No: Vomiting Objective Exam General Appearance: No Apparent Distress, Anxious, Obese HEENT: PERRL/EOMI Respiratory: Lungs Clear, Normal Breath Sounds, No Accessory Muscle Use, No Respiratory Distress Cardiovascular: No Murmur, Irregularly Irregular Gastrointestinal: soft, tenderness (epigastric; at drainage site), other (purulent/feculent drainage coming out from around drain in LUQ; now includes blood) Neurologic/Psychiatric: Alert, Oriented x3, Depressed Affect Assessment/Plan Assessment/Plan Assessment/Plan Probable Anastomotic Leak Hx of Colon cancer with recent resection and primary anastomosis Chronic Atrial Fibrillation HTN IV fluids Pain management Continue Met/Cipro NPO currently I had detailed discussion with pt and his about anastomotic leak, contaminated abdomen and why I put on the consent possible ostomy. I explained that if we put a fresh anastomosis in a bed of contaminated tissue, there was a high probability that the anastomosis would fail again. It is most like why it failed this time. I told pt and his that if I had to do an ostomy (I would be trying everything in my power to not do one and had no plan to definitely do an ostomy) it would 100% not be permanent and the longest he would have to have it would be 8 weeks. An ostomy would divert the fecal material and protect the anastomosis while it healed. They both agreed to surgery and possible ostomy. Supervisory-Addendum Brief Verification & Attestation Participated in pt care: history, MDM, physical Personally performed: exam, history, MDM, supervision of care Care discussed with: Medical Student Procedures: n/a Verification and Attestation of Medical Student E/M Service A medical student performed and documented this service. I then reviewed and verified all information documented by the medical student and made modifications to such information, when appropriate. I personally performed a physical exam, medical decision making and then discussed any differences between the notes and made revisions as necessary to create one note. Jose Salcedo , 06/10/21 , 10:28 ALEK TYSON Jun 10, 2021 06:58 JOSE SALCEDO DO Jun 10, 2021 10:28
[2021-06-10 07:01] LABS: BAND NEUTROPHILS 2 %; EOSINOPHILS % (MANUAL) 1 %; LYMPHOCYTES % (MANUAL) 3 %; MONOCYTES % (MANUAL) 3 %; NEUTROPHILS % (MANUAL) 91 %
[2021-06-10 07:02] LABS: HYPOCHROMASIA SLIGHT
[2021-06-10 07:04] LABS: ELLIPT/OVALOCYTES SLIGHT; MICROCYTOSIS SLIGHT
[2021-06-10] MEDS ORDERED: ROCURONIUM 10 MG/ML 5 ML SYRINGE IV ONE ×2 (10:04→12:14)
[2021-06-10] MEDS ORDERED: fentaNYL INJ 100 MCG/2 ML AMP ONE (10:04)
[2021-06-10] MEDS ORDERED: proPOfol 200 MG/20 ML (DIPRIVAN) VIAL IV ONE (10:04)
[2021-06-10] MEDS ORDERED: LIDOCAINE PF 2% 5 ML (XYLOCAINE) VIAL ONE (10:04)
[2021-06-10] MEDS ORDERED: MIDAZOLAM 2 MG/2 ML (VERSED) VIAL ONE (10:05)
[2021-06-10] MEDS ORDERED: LACTATED RINGERS 1,000 ML IV PRN (10:30)
[2021-06-10] MEDS ORDERED: hydrALAZINE (APESOLINE) 20 MG/ML VIAL IV PRN (11:30)
[2021-06-10] MEDS ORDERED: ROPIVACAINE 5MG/ML 30ML VIAL ONE (12:33)
[2021-06-10] MEDS ORDERED: SEVOFLURANE (ULTANE) 15 ML INHAL SOLN ONE (12:39)
[2021-06-10] MEDS ORDERED: GLYCOPYRROLATE 0.2 MG/ML (ROBINUL) 2 ML VIAL ONE (12:45)
[2021-06-10] MEDS ORDERED: NEOSTIGMINE 3 MG/3 ML VIAL ONE (13:02)
[2021-06-10] MEDS ORDERED: NALOXONE 0.4 MG/ML 1 ML (NARCAN) VIAL ONE (13:27)
[2021-06-10] MEDS ORDERED: SUGAMMADEX 500 MG/5 ML VIAL (BRIDION) IV ONE (13:28)
[2021-06-10] MEDS ORDERED: PHENYLEPHRINE 100 MCG/ML 10 ML (ANESTHESIA) SYR ONE (13:29)
--- NOTE | 2021-06-10 13:44 | Progress Note-Post Operative ---
Post-Operative Progess Note Surgeon (s)/Laborer Demolition (s) Surgeon NAOMI HODGE DO Laborer Demolition: Suzette Pre-Operative Diagnosis abdomial abscess, probable anastomotic leak Post-Operative Diagnosis Dehiscence of anastomosis Procedure & Operative Findings Date of Procedure 06/10/21 Procedure Performed/Findings Colon Resection with primary anastomosis, washout abdomen with placement of bala drain Anesthesia Type GET Estimated Blood Loss Estimated blood loss (mL): 200ml Specimens/Packing Specimens Removed portion of colon NAOMI HODGE DO Jun 10, 2021 13:44
--- NOTE | 2021-06-10 14:17 | Tele-ICU Consult ---
History of Present Illness History of Present Illness Date Seen by Provider: Jun 10, 2021 Time Seen by Provider: 14:15 Date of Admission Reason for Visit: Anastomotic leak of intestine Allergies and Home Medications Allergies Coded Allergies: morphine (Unverified Allergy, Unknown, 04/29/21) Home Medications ALPRAZolam 0.25 Mg Tablet, 0.125-0.25 MG PO DAILY PRN for ANXIETY, (Reported) TAKES TO 1 (0.25MG) TAB Apixaban 5 Mg Tablet, 5 MG PO BID, (Reported) HAS NOT HAD A DOSE SINCE 06-01-2021 Ascorbate Calcium 500 Mg Tablet, 500 MG PO DAILY, (Reported) Citalopram Hydrobromide 20 Mg Tablet, 20 MG PO DAILY, (Reported) Cyanocobalamin (Vitamin B-12) 500 Mcg Tablet, 500 MCG PO DAILY, (Reported) Diltiazem HCl 120 Mg Cap.er.24h, 120 MG PO DAILY, (Reported) HAS NOT HAD A DOSE SINCE 06-01-2021 Ferrous Sulfate 325 Mg Tablet, 325 MG PO DAILY, (Reported) Furosemide 40 Mg Tablet, 80 MG PO DAILY, (Reported) TAKES 2 (40MG) TABS LAST FILLED 06-30-2020 #360/180 DAY SUPPLY Gabapentin 600 Mg Tablet, 600 MG PO TID, (Reported) Potassium Chloride 20 Meq Tab.er.prt, 40 MEQ PO HS, (Reported) TAKES 2 (20MEQ) TABS Spironolactone 50 Mg Tablet, 50 MG PO DAILY, (Reported) Tadalafil 20 Mg Tablet, 20 MG PO DAILY, (Reported) Zinc 50 Mg Tablet, 50 MG PO DAILY, (Reported) Past Medical/Social/Family Hx Patient Social History Tobacco Use?: Yes Tobacco type used: Cigars Smoking Status: Current Someday Smoker Smokeless Tobacco Frequency: Never a User Use of E-Cig and/or Vaping dev: No Substance use?: No Alcohol Use?: Yes Alcohol type: Hard Liquor Alcohol Frequency: Once in a while Pt stated abuse/neglect: No Immunizations Up To Date Influenza Vaccine Up-to-Date: Yes; Up-to-Date First/Initial COVID19 Vaccinat: JUNE 2020 Second COVID19 Vaccination Abdi: JULY 2020 Tetanus Booster (TDap): More Than 5 Years Hepatitis A: No Hepatitis B: No TB Skin Test: None Current Status Advance Directives: No Communicates: Verbally Primary Language: Bruneian Preferred Spoken Language: Bruneian Is interpretation needed?: No Implanted or Applied Medical D: None Review of Systems Constitutional: see HPI Focused Exam Height, Weight, BMI Height: '" Weight: lbs. oz. kg; 36.16 BMI Method: Exam Exam Patient acknowledged, consented, and participated in this virtual visit which was conducted using real time audio/video Vital Signs Date Time Temp Pulse Resp B/P (MAP) Pulse Ox O2 Delivery O2 Flow Rate FiO2 06/10/21 13:20 30 87/73 (78) 94 Non Rebreather 10 06/10/21 13:17 28 91/75 (80) 93 Non Rebreather 10 06/10/21 13:10 36.4 33 96/72 (80) 92 Non Rebreather 10 06/10/21 08:00 Room Air 06/10/21 07:36 35.6 101 20 114/71 (85) 98 Room Air 06/10/21 04:11 36.0 99 22 120/68 (85) 91 Room Air 06/10/21 00:38 36.8 06/10/21 00:16 36.8 117 20 113/64 (80) 96 Room Air 06/09/21 20:05 37.2 110 22 102/71 (81) 95 Room Air 06/09/21 19:50 95 Room Air 06/09/21 15:55 37.0 88 20 106/66 (79) 94 Room Air I & O 06/10/21 07:00 Intake Total 2555 ml Output Total 520 ml Balance 2035 ml Height & Weight Height: '" Weight: lbs. oz. kg; 36.16 BMI Method: General Appearance: No Apparent Distress, Anxious, Obese HEENT: PERRL/EOMI Respiratory: Lungs Clear, Normal Breath Sounds, No Accessory Muscle Use, No Respiratory Distress Cardiovascular: No Murmur, Irregularly Irregular Peripheral Pulses: 2+ Dorsalis Pedis (R), 2+ Left Dors-Pedis (L), 2+ Radial Pulses (R), 2+ Radial Pulses (L) Gastrointestinal: soft, tenderness (epigastric; at drainage site), other (purulent/feculent drainage coming out from around drain in LUQ; now includes blood) Extremity: Normal Inspection, No Pedal Edema Neurologic/Psychiatric: Alert, Oriented x3, Depressed Affect Skin: Warm/Dry, Other (bilat brown discoloration on shins (chronic)) Results Lab Laboratory Tests 06/10/21 05:51 Assessment/Plan Assessment/Plan (Tele-ICU Physician , consultation) Available chart/ vitals / labs / Images reviewed H&P is from Sx notes Patient's information available about PMH, Shx, Fhx allergy reviewed in EMR. ROS as per chart and RN report Now in ICU, hemodynamically stable Video assessment done using teleICU camera, rest of exam as per RN IN ICU POST-OP, NRM SAT 98% , NO PRESSORS , ABUSABLE Discussed with RN. Consultants: Sx Hospital course: 06/10- s/p Colon Resection with primary anastomosis, washout abdomen with placement of bala drain A/P S/p Colon Resection with primary anastomosis, washout abdomen with placement of bala drain 06/10 ( h/o colon resection of a left colonic CA on 05/06--> abscess --> drained on 06/04 - as per Sx - cont abx - pain control Acute hypoxic resp failure - s/p GET 06/10 , wean down O2 - follow Shock - most likely hypovolemia, sepsis - cont hydration - check CBC and trop - EBL 200 ml - follow labs A fib RVR on OR and after - rate 120 - cont hydration , follow - OFF AC since 05/06 Anemia - follow Lines : peripg (Central Line Necessity Reviewed) [place]: + OG: Nutrition: Analgesia: Anxiety/ delirium VTE Prophylaxis: scd Stress Ulcer Prophylaxis: ppi Plans in collaboration with bedside consultants and IM MDs. Discussed with RN to reach out if any questions or concerns A total of 33 minutes of critical care time was devoted to this patient today, required to treat and/or prevent further deterioration of critical care con dition ( as above ) . FLORENCE ORTIZ MD Jun 10, 2021 14:17
[2021-06-10] MEDS: ACETAMINOPHEN 500 MG TAB (TYLENOL) PO SCH ×2 (14:40→21:13)
[2021-06-10 14:41] LABS: HEMATOCRIT 38 % (40-54); HEMOGLOBIN 11.1 g/dL (13.3-17.7); MEAN CORPUSCULAR HEMOGLOBIN 22 pg (25-34); MEAN CORPUSCULAR HGB CONC 29 g/dL (32-36); MEAN CORPUSCULAR VOLUME 77 fL (80-99); MEAN PLATELET VOLUME 8.8 fL (9.0-12.2); PLATELET COUNT 352 10^3/uL (130-400); WHITE BLOOD COUNT 22.7 10^3/uL (4.3-11.0)
--- NOTE | 2021-06-10 14:51 | Diagnostic Imaging Report ---
INDICATION: Hypoxia. TIME OF EXAM: 2:32 PM No prior studies are available for comparison. Heart size normal. Study is somewhat limited due to blurring of the film. This may be owing to respiratory motion. There is some patchy densities in right mid and lower lung field which may represent pneumonia. Left lung appears clear. There is no effusion or pneumothorax. IMPRESSION: Image quality is poor, perhaps owing to motion artifact. There is some patchy densities in the mid and lower lung field on the right which may represent infiltrate. Dictated by: Dictated on workstation # [id number]
[2021-06-10 14:56] LABS: CHLORIDE 94 MMOL/L (98-107); POTASSIUM 4.9 MMOL/L (3.6-5.0); SODIUM 132 MMOL/L (135-145)
[2021-06-10 14:57] LABS: CALCIUM 9.5 MG/DL (8.5-10.1)
[2021-06-10 14:58] LABS: GLUCOSE 226 MG/DL (70-105)
[2021-06-10 14:59] LABS: CARBON DIOXIDE 25 MMOL/L (21-32)
[2021-06-10 15:02] LABS: CREATININE SERUM 1.24 MG/DL (0.60-1.30); GFR ESTIMATED 63
[2021-06-10 15:03] LABS: BUN/CREATININE RATIO 11
--- NOTE | 2021-06-10 15:17 | Consultation-Cardiology ---
HPI-Cardiology Cardiology Consultation: Date of Consultation 06/10/21 Time Seen by a Provider: 15:15 Date of Admission 06-10-21 Attending Physician Naomi Hodge DO Admitting Physician Liat,Local Physician Consulting Physician Eufemia Sanchez MD HPI: Chief Complaint: A-fib Mr. Theodore is a 70 yr old male admitted to ICU 6 from the OR post abd surgery. He was found to be in a-fib with RVR. He reports he follows with Dr. Vasquez at [facility]. His spouse is at the bedside. He denies any c/o CP, palpitations or SOB. He reports he feels nauseated at this time. Review of Systems-Cardiology Review of Systems Constitutional: No chills, No fever Eyes: No vision change Ears/Nose/Throat: No epistaxis, No recent hearing loss Respiratory: As described under HPI Cardiovascular: As described under HPI Gastrointestinal: nausea; No vomiting Genitourinary: No hematuria Musculoskeletal: no symptoms reported Skin: other (abd incision - post op); No rash on exposed areas, No ulcerations on exposed areas Psychiatric/Neurological: depression; No seizure, No focal weakness, No syncope Hematologic: No bleeding abnormalities MEO-Bbdhnz-Aybpxk Hx Patient Social History Smoking Status: Current Someday Smoker 2nd Hand Smoke Exposure: No Have you traveled recently?: No Alcohol Use?: Yes Pt feels they are or have been: No Tobacco type used: Cigars Immunizations Up To Date Date of Influenza Vaccine: Jan 09, 2021 Past Medical History PMH As described under Assessment. Family Medical History Family Medical History: No reported family h/o CAD Allergies and Home Medications Allergies Coded Allergies: morphine (Unverified Allergy, Unknown, 04/29/21) Patient Home Medication List Home Medication List Reviewed: Yes ALPRAZolam (ALPRAZolam) 0.25 Mg Tablet, 0.125-0.25 MG PO DAILY PRN for ANXIETY, (Reported) Entered as Reported by: CRESENCIO STRONG on 05/04/21 1013 Last Action: Held Apixaban (Eliquis) 5 Mg Tablet, 5 MG PO BID, (Reported) Entered as Reported by: CRESENCIO STRONG on 05/04/21 1013 Last Action: Held Ascorbate Calcium (Vitamin C) 500 Mg Tablet, 500 MG PO DAILY, (Reported) Entered as Reported by: MELANIE CONSTANTINO on 3/1/22 1358 Last Action: Held Citalopram Hydrobromide (Citalopram HBr) 20 Mg Tablet, 20 MG PO DAILY, (Reported) Entered as Reported by: CRESENCIO STRONG on 05/04/211012 Last Action: Continued Cyanocobalamin (Vitamin B-12) (B-12) 500 Mcg Tablet, 500 MCG PO DAILY, (Reported) Entered as Reported by: MELANIE CONSTANTINO on 06/09/211357 Last Action: Held Diltiazem HCl (Cartia Xt) 120 Mg Cap.er.24h, 120 MG PO DAILY, (Reported) Entered as Reported by: MELANIE CONSTANTINO on 06/09/211357 Last Action: Continued Ferrous Sulfate (Iron) 325 Mg Tablet, 325 MG PO DAILY, (Reported) Entered as Reported by: MELANIE CONSTANTINO on 06/09/211357 Last Action: Held Furosemide (Furosemide) 40 Mg Tablet, 80 MG PO DAILY, (Reported) Entered as Reported by: MELANIE CONSTANTINO on 05/07/211124 Last Action: Held Gabapentin (Gabapentin) 600 Mg Tablet, 600 MG PO TID, (Reported) Entered as Reported by: CRESENCIO STRONG on 05/04/211012 Last Action: Continued Potassium Chloride (Potassium Chloride) 20 Meq Tab.er.prt, 40 MEQ PO HS, (Reported) Entered as Reported by: CRESENCIO STRONG on 05/04/211012 Last Action: Held Spironolactone (Spironolactone) 50 Mg Tablet, 50 MG PO DAILY, (Reported) Entered as Reported by: MELANIE CONSTANTINO on 05/07/211124 Last Action: Held Tadalafil (Tadalafil) 20 Mg Tablet, 20 MG PO DAILY, (Reported) Entered as Reported by: MELANIE CONSTANTINO on 05/07/211124 Last Action: Held Zinc (Zinc) 50 Mg Tablet, 50 MG PO DAILY, (Reported) Entered as Reported by: MELANIE CONSTANTINO on 06/09/211357 Last Action: Held Discontinued Medications Diltiazem HCl (Diltiazem 24Hr Cd) 120 Mg Cap.er.24h, 120 MG PO DAILY, (Reported) Discontinued Reason: Duplicate Order Entered as Reported by: CRESENCIO STRONG on 05/04/211012 Last Action: Discontinued Hydrocodone Bit/Acetaminophen (HYDROcodone/APAP 5 MG/325 MG TAB) 1 Tab Tab, 1 TAB PO Q8H PRN for PAIN-MODERATE (5-7) Discontinued Reason: No Longer Taking Prescribed by: NAOMI HODGE on 05/08/21 8539 Last Action: Discontinued Physical Exam-Cardiology Physical Exam Vital Signs/I&O 06/10/21 06/10/21 06/10/21 06/10/21 21:00 21:14 22:00 23:00 Pulse 98 85 80 Resp 18 25 29 B/P (MAP) 120/63 (82) 122/87 (99) 126/89 (101) Pulse Ox 99 99 99 O2 Delivery High Flow N/C High Flow N/C High Flow N/C High Flow N/C O2 Flow Rate 6.00 5.00 5.00 5.00 06/10/21 06/11/21 06/11/21 06/11/21 23:05 00:00 00:00 00:05 Temp 35.8 Pulse 77 Resp 22 B/P (MAP) 125/81 (96) Pulse Ox 98 O2 Delivery Nasal Cannula High Flow N/C High Flow N/C High Flow N/C O2 Flow Rate 3.00 4.00 5.00 4.00 06/11/21 06/11/21 06/11/21 06/11/21 01:00 01:00 02:00 02:16 Pulse 77 73 67 Resp 20 20 B/P (MAP) 115/82 (93) 114/81 (92) Pulse Ox 98 98 O2 Delivery High Flow N/C High Flow N/C High Flow N/C O2 Flow Rate 4.00 4.00 3.00 06/11/21 06/11/21 06/11/21 06/11/21 03:00 04:00 04:00 04:42 Temp 36.0 Pulse 71 67 Resp 22 25 B/P (MAP) 111/75 (87) 115/82 (93) Pulse Ox 97 96 O2 Delivery High Flow N/C High Flow N/C High Flow N/C High Flow N/C O2 Flow Rate 3.00 3.00 2.00 2.00 06/11/21 06/11/21 06/11/21 05:00 06:00 07:36 Temp 36.2 Pulse 75 73 Resp 18 25 B/P (MAP) 109/70 (83) 119/78 (92) Pulse Ox 95 94 O2 Delivery High Flow N/C High Flow N/C O2 Flow Rate 2.00 2.00 06/11/21 00:00 Intake Total 2300 ml Output Total 820 ml Balance 1480 ml Capillary Refill : Constitutional: AAO x 3, well-developed, well-nourished HEENT: PERRL, hearing is well preserved, oral hygience is good Neck: No carotid bruit; carotid pulses are 2 + bilaterally Respiratory: No accessory muscle use, No respiratory distress; chest expansion is symmetric, chest is bilaterally symmetric, rhonchi (scattered; prolonged exp phase) Cardiovascular: irregularly irregular; No JVD; tachycardia, S1 and S2 Gastrointestinal: other (post-op abdomen - drsg D&I) Genital/Rectal: other (urinary catheter in place to DD) Extremities: no lower extremity edema bilateral Neurologic/Psychiatric: other (moves all extremities) Skin: warm/dry, other (chronic brown discoloration bilat shins) Data Review Labs Laboratory Tests 06/10/21 10:00: Influenza Type A (RT-PCR) Not Detected, Influenza Type B (RT-PCR) Not Detected, SARS-CoV-2 RNA (RT-PCR) Not Detected 06/10/21 14:32: White Blood Count 22.7H, Red Blood Count 5.00, Hemoglobin 11.1L, Hematocrit 38L, Mean Corpuscular Volume 77L, Mean Corpuscular Hemoglobin 22L, Mean Corpuscular Hemoglobin Concent 29L, Red Cell Distribution Width 17.0H, Platelet Count 352, Mean Platelet Volume 8.8L, Sodium Level 132L, Potassium Level 4.9, Chloride Level 94L, Carbon Dioxide Level 25, Anion Gap 13, Blood Urea Nitrogen 14, Creatinine 1.24, Estimat Glomerular Filtration Rate 63, BUN/Creatinine Ratio 11, Glucose Level 226H, Calcium Level 9.5, Troponin I < 0.028 06/11/21 04:36: White Blood Count 28.0H, Red Blood Count 4.50, Hemoglobin 10.0L, Hematocrit 34L, Mean Corpuscular Volume 76L, Mean Corpuscular Hemoglobin 22L, Mean Corpuscular Hemoglobin Concent 29L, Red Cell Distribution Width 17.0H, Platelet Count 329, Mean Platelet Volume 9.0, Sodium Level 131L, Potassium Level 5.2H, Chloride Level 96L, Carbon Dioxide Level 22, Anion Gap 13, Blood Urea Nitrogen 16, Creatinine 1.16, Estimat Glomerular Filtration Rate 69, BUN/Creatinine Ratio 14, Glucose Level 210H, Calcium Level 9.7, Immature Granulocyte % (Auto) 1, Neutrophils (%) (Auto) 93H, Lymphocytes (%) (Auto) 3L, Monocytes (%) (Auto) 3, Eosinophils (%) (Auto) 0, Basophils (%) (Auto) 0, Neutrophils # (Auto) 26.1H, Lymphocytes # (Auto) 0.8L, Monocytes # (Auto) 0.9, Eosinophils # (Auto) 0.0, Basophils # (Auto) 0.1, Immature Granulocyte # (Auto) 0.2H, Phosphorus Level 5.1H, Magnesium Level 2.1 Microbiology 06/09/21 Blood Culture - Preliminary, Resulted No growth Radiology NAME: [facility] REC#: [id number] PT STATUS: ADM IN : 1950 PHYSICIAN: FLORENCE ORTIZ MD ADMIT DATE: 06/09/21/ICU Draft Date of Exam:06/10/21 CHEST 1 VIEW, AP/PA ONLY INDICATION: Hypoxia. TIME OF EXAM: 2:32 PM No prior studies are available for comparison. Heart size normal. Study is somewhat limited due to blurring of the film. This may be owing to respiratory motion. There is some patchy densities in right mid and lower lung field which may represent pneumonia. Left lung appears clear. There is no effusion or pneumothorax. IMPRESSION: Image quality is poor, perhaps owing to motion artifact. There is some patchy densities in the mid and lower lung field on the right which may represent infiltrate. Dictated on workstation # [id number] Dict: 06/10/21 1444 Trans: 06/10/21 1451 CVB [id number] Interpreted by: JAMIR KERN MD Electronically signed by: ECG Impression ECG Initial ECG Impression: Atrial Fibrillation w/RVR A/P-Cardiology Assessment/Admission Diagnosis Post colon resection with primary anastomosis, washout abdomen with placement drain on 06-10-[address] Hodge Chronic a-fib - currently a-fib with RVR - followed by Dr. Vasquez at [facility] - maintained on Eliquis 5mg BID and Cartia 120mg daily Echocardiogram of 07-15-[address] Vasquez at [facility] showed LVEF 55%. Mod dilated RV. PASP 70-75 mmHg Pulmonary HTN - followed by Dr. Moss at [facility] Discussion and Recomendations Post colon resection - managed by Dr. Hodge A-fib with RVR - Cardizem gtt for rate control Advise resumption of OAC as soon as allowed by surgical services for stroke prevention Monitor lab closely Further recs will be based on his hospital course We would like to thank surgical/medical services for this consult CRISPIN NELSON Jun 10, 2021 15:17
[2021-06-10] MEDS: dilTIAZem DRIP PRE-MIX 125 ML IV SCH (15:53)
[2021-06-10] MEDS: fentaNYL INJ 100 MCG/2 ML AMP IVP PRN ×2 (15:58→20:18)
[2021-06-10] MEDS ORDERED: ONDANSETRON 4 MG/2 ML (SDV) Z0FRAN IVP PRN (16:15)
--- NOTE | 2021-06-10 17:19 | Consultation-Cardiology ---
HPI-Cardiology Cardiology Consultation: Date of Consultation 06/10/21 Time Seen by a Provider: 17:05 Date of Admission Attending Physician Naomi Hodge DO Admitting Physician No,Local Physician Consulting Physician CARLOS PAGAN MD, MA, FACP, FACC, [facility] [place], CCDS Physician requesting Card consult: Dr Hodge HPI: Chief Complaint: Reason for card consult: A-fib HPI Mr. Theodore is a 70 yr old male admitted to ICU 6 from the OR post abd surgery. He was found to be in a-fib with RVR. He reports he follows with Dr. Vasquez at [facility]. His spouse is at the bedside. He denies any c/o CP, palpitations or SOB. He reports he feels nauseated at this time. Review of Systems-Cardiology Review of Systems Constitutional: No chills, No fever Eyes: No vision change Ears/Nose/Throat: No epistaxis, No recent hearing loss Respiratory: As described under HPI Cardiovascular: As described under HPI Gastrointestinal: nausea; No vomiting Genitourinary: No hematuria Musculoskeletal: no symptoms reported Skin: other (abd incision - post op); No rash on exposed areas, No ulcerations on exposed areas Psychiatric/Neurological: depression; No seizure, No focal weakness, No syncope Hematologic: No bleeding abnormalities UIS-Kptvpm-Nvyjlx Hx Patient Social History Smoking Status: Current Someday Smoker 2nd Hand Smoke Exposure: No Have you traveled recently?: No Alcohol Use?: Yes Pt feels they are or have been: No Tobacco type used: Cigars Immunizations Up To Date Date of Influenza Vaccine: Jan 09, 2021 Past Medical History PMH As described under Assessment. Family Medical History Family Medical History: No reported family h/o CAD Allergies and Home Medications Allergies Coded Allergies: morphine (Unverified Allergy, Unknown, 04/29/21) Patient Home Medication List Home Medication List Reviewed: Yes ALPRAZolam (ALPRAZolam) 0.25 Mg Tablet, 0.125-0.25 MG PO DAILY PRN for ANXIETY, (Reported) Entered as Reported by: CRESENCIO STRONG on 05/04/21 1013 Last Action: Held Apixaban (Eliquis) 5 Mg Tablet, 5 MG PO BID, (Reported) Entered as Reported by: CRESENCIO STRONG on 05/04/21 1013 Last Action: Held Ascorbate Calcium (Vitamin C) 500 Mg Tablet, 500 MG PO DAILY, (Reported) Entered as Reported by: MELANIE CONSTANTINO on 06/09/211357 Last Action: Held Citalopram Hydrobromide (Citalopram HBr) 20 Mg Tablet, 20 MG PO DAILY, (Reported) Entered as Reported by: CRESENCIO STRONG on 05/04/211012 Last Action: Continued Cyanocobalamin (Vitamin B-12) (B-12) 500 Mcg Tablet, 500 MCG PO DAILY, (Reported) Entered as Reported by: MELANIE CONSTANTINO on 06/09/211357 Last Action: Held Diltiazem HCl (Cartia Xt) 120 Mg Cap.er.24h, 120 MG PO DAILY, (Reported) Entered as Reported by: MELANIE CONSTANTINO on 06/09/211357 Last Action: Continued Ferrous Sulfate (Iron) 325 Mg Tablet, 325 MG PO DAILY, (Reported) Entered as Reported by: MELANIE CONSTANTINO on 06/09/211357 Last Action: Held Furosemide (Furosemide) 40 Mg Tablet, 80 MG PO DAILY, (Reported) Entered as Reported by: MELANIE CONSTANTINO on 05/07/211124 Last Action: Held Gabapentin (Gabapentin) 600 Mg Tablet, 600 MG PO TID, (Reported) Entered as Reported by: CRESENCIO STRONG on 05/04/21 101 Last Action: Continued Potassium Chloride (Potassium Chloride) 20 Meq Tab.er.prt, 40 MEQ PO HS, (Rep orted) Entered as Reported by: CRESENCIO STRONG on 05/04/21 101 Last Action: Held Spironolactone (Spironolactone) 50 Mg Tablet, 50 MG PO DAILY, (Reported) Entered as Reported by: MELANIE CONSTANTINO on 05/07/211124 Last Action: Held Tadalafil (Tadalafil) 20 Mg Tablet, 20 MG PO DAILY, (Reported) Entered as Reported by: MELANIE CONSTANTINO on 05/07/211124 Last Action: Held Zinc (Zinc) 50 Mg Tablet, 50 MG PO DAILY, (Reported) Entered as Reported by: MELANIE CONSTANTINO on 06/09/211357 Last Action: Held Discontinued Medications Diltiazem HCl (Diltiazem 24Hr Cd) 120 Mg Cap.er.24h, 120 MG PO DAILY, (Reported) Discontinued Reason: Duplicate Order Entered as Reported by: CRESENCIO STRONG on 05/04/21 1013 Last Action: Discontinued Hydrocodone Bit/Acetaminophen (HYDROcodone/APAP 5 MG/325 MG TAB) 1 Tab Tab, 1 TAB PO Q8H PRN for PAIN-MODERATE (5-7) Discontinued Reason: No Longer Taking Prescribed by: NAOMI HODGE on 05/08/21 1233 Last Action: Discontinued Physical Exam-Cardiology Physical Exam Vital Signs/I&O 06/10/21 06/10/21 06/10/21 06/10/21 07:36 08:00 13:10 13:10 Temp 35.6 36.4 Pulse 101 Resp 20 33 B/P (MAP) 114/71 (85) 96/72 (80) Pulse Ox 98 92 O2 Delivery Room Air Room Air Non Rebreather Non Rebreather O2 Flow Rate 10 10 06/10/21 06/10/21 06/10/21 06/10/21 13:17 13:20 13:26 13:31 Temp 36.1 Resp 28 30 30 28 B/P (MAP) 91/75 (80) 87/73 (78) 98/77 (84) 119/49 (72) Pulse Ox 93 94 94 96 O2 Delivery Non Rebreather Non Rebreather Non Rebreather Non Rebreather O2 Flow Rate 10 10 10 10 06/10/21 06/10/21 06/10/21 06/10/21 13:40 13:45 13:45 16:00 Pulse 117 O2 Delivery Non Rebreather Non Rebreather Non Rebreather O2 Flow Rate 10 15.00 15.00 06/10/21 16:00 Temp 36.4 06/10/21 00:00 Intake Total 1255 ml Output Total 520 ml Balance 735 ml Capillary Refill : Constitutional: AAO x 3, well-developed, well-nourished HEENT: PERRL, hearing is well preserved, oral hygience is good Neck: No carotid bruit; carotid pulses are 2 + bilaterally Respiratory: No accessory muscle use, No respiratory distress; chest expansion is symmetric, chest is bilaterally symmetric, rhonchi (scattered; prolonged exp phase) Cardiovascular: irregularly irregular; No JVD; tachycardia, S1 and S2 Gastrointestinal: other (post-op abdomen - drsg D&I) Genital/Rectal: other (urinary catheter in place to DD) Extremities: no lower extremity edema bilateral Neurologic/Psychiatric: other (moves all extremities) Skin: warm/dry, other (chronic brown discoloration bilat shins) Data Review Labs Laboratory Tests 06/10/21 05:51: White Blood Count 17.0H, Red Blood Count 4.56, Hemoglobin 10.1L, Hematocrit 34L, Mean Corpuscular Volume 75L, Mean Corpuscular Hemoglobin 22L, Mean Corpuscular Hemoglobin Concent 29L, Red Cell Distribution Width 16.8H, Platelet Count 322, Mean Platelet Volume 8.6L, Immature Granulocyte % (Auto) 1, Neutrophils (%) (Auto) 85H, Lymphocytes (%) (Auto) 7L, Monocytes (%) (Auto) 7, Eosinophils (%) (Auto) 0, Basophils (%) (Auto) 0, Neutrophils # (Auto) 14.5H, Lymphocytes # (Auto) 1.1, Monocytes # (Auto) 1.3H, Eosinophils # (Auto) 0.0, Basophils # (Auto) 0.1, Immature Granulocyte # (Auto) 0.1, Neutrophils % (Manual) 91, Lymphocytes % (Manual) 3, Monocytes % (Manual) 3, Eosinophils % (Manual) 1, Band Neutrophils 2, Hypochromasia SLIGHT, Microcytosis SLIGHT, Elliptocytes SLIGHT, Sodium Level 132L, Potassium Level 4.3, Chloride Level 95L, Carbon Dioxide Level 26, Anion Gap 11, Blood Urea Nitrogen 14, Creatinine 1.01, Estimat Glomerular Filtration Rate 81, BUN/Creatinine Ratio 14, Glucose Level 132H, Calcium Level 9.6, Corrected Calcium 10.6H, Total Bilirubin 0.6, Aspartate Amino Transf (AST/SGOT) 18, Alanine Aminotransferase (ALT/SGPT) 14, Alkaline Phosphatase 77, Total Protein 6.6, Albumin 2.7L 06/10/21 10:00: Influenza Type A (RT-PCR) Not Detected, Influenza Type B (RT-PCR) Not Detected, SARS-CoV-2 RNA (RT-PCR) Not Detected 06/10/21 14:32: White Blood Count 22.7H, Red Blood Count 5.00, Hemoglobin 11.1L, Hematocrit 38L, Mean Corpuscular Volume 77L, Mean Corpuscular Hemoglobin 22L, Mean Corpuscular Hemoglobin Concent 29L, Red Cell Distribution Width 17.0H, Platelet Count 352, Mean Platelet Volume 8.8L, Sodium Level 132L, Potassium Level 4.9, Chloride Level 94L, Carbon Dioxide Level 25, Anion Gap 13, Blood Urea Nitrogen 14, Creatinine 1.24, Estimat Glomerular Filtration Rate 63, BUN/Creatinine Ratio 11, Glucose Level 226H, Calcium Level 9.5, Troponin I < 0.028 Microbiology 06/09/21 Blood Culture - Preliminary, Resulted No growth A/P-Cardiology Assessment/Admission Diagnosis Post colon resection with primary anastomosis, washout abdomen with placement drain on 06-10-[address] Hodge Chronic a-fib - currently a-fib with RVR - followed by Dr. Vasquez at [facility] - maintained on Eliquis 5mg BID and Cartia 120mg daily Echocardiogram of 07-15-[address] Vasquez at [facility] showed LVEF 55%. Mod dilated RV. PASP 70-75 mmHg Pulmonary HTN - followed by Dr. Moss at [facility] Discussion and Recomendations Cardizem gtt for rate control Advise resumption of OAC as soon as allowed by surgical services for stroke prevention Monitor lab closely Further recs will be based on his hospital course We would like to thank Surgical/Medical services for this consult CARLOS PAGAN MD FACP FAC CCDS Jun 10, 2021 17:19
--- NOTE | 2021-06-10 19:15 | OPERATIVE REPORT ---
DATE OF SERVICE: 06/10/2021 PREOPERATIVE DIAGNOSES: Possible anastomotic leak. POSTOPERATIVE DIAGNOSES: Anastomotic dehiscence, purulent fluid in the abdomen and atrial fibrillation with RVR. PROCEDURE: Exploratory laparotomy with colon resection and primary anastomosis as well as washout of the abdomen and placement of Jn drain. SURGEON: Naomi Salcedo DO ENERGY CONTROL OFFICER: Damon Bradford DO ANESTHESIA: General endotracheal tube. SPECIMEN: Portion of colon. BLOOD LOSS: Approximately 200 mL. FLUIDS: Per anesthesia. POSTOPERATIVE CONDITION: Stable. INDICATION FOR PROCEDURE: The patient is a 70-year-old male, who underwent a colonoscopy, found to have a near obstructing lesion and then subsequently had a colon resection and found to have colon cancer. He was doing okay, but having trouble eating, some minimal pain improved, but then got worse again. CT done showed free air. He had a drain. Interventional radiology placed a drain, got out some scant fluid and drained the air that was in here and then called the office yesterday, started to notice a very foul-smelling drainage in the drain. I saw him in the office, it looked feculent and he was sent to the hospital. FINDINGS: The patient had almost near total dehiscence of the anastomosis, he had a phlegmon up in the left upper quadrant. The abdomen really did not have gross contamination in the other quadrants. It was mainly kept in the left upper quadrant. PROCEDURE NOTE: After informed consent was obtained, the patient was brought to the operating room, placed on the operating table in supine position. He was sterilely prepped and draped in normal fashion. A midline incision was made from just below the xiphoid to above his umbilicus, actually above the previous incision, carried down through the skin into subcutaneous tissue, then deepened down to subcutaneous tissue with Bovie electrocautery down to fascia. Fascia was incised with Bovie electrocautery. We were able to bluntly get into the abdomen and then carefully incised superiorly with Bovie electrocautery. Encountered omentum up in the left upper quadrant and then started carefully peeling this away and immediately got out a large amount of feculent material, suctioned this up and then copiously irrigated with normal saline, approximately a liter and a half, suctioned this up and found the hole, able to identify transverse colon as well as descending colon, found a space just below the previous anastomosis, made a defect in the mesentery bluntly and then placed a FAVIAN-75 across, clamped and fired, thereby transecting, then found a spot just below the anastomosis on the transverse colon, again bluntly made a defect in the mesentery and then did another clamp and fire of the FAVIAN-75 blue load. I then started taking this area off using LigaSure to come across the mesentery clamping, coagulating and transecting kind of freeing this up with some blunt dissection as well. There was a little bit of bleeding from the lateral aspect. This was controlled with some packing of some sponges, continued taking this transverse colon and descending colon anastomosis down, able to finally get this completely out. Once this was removed, I then copiously irrigated with another 4 liters of warm normal saline, it looked like the contamination was only in the left upper quadrant. There was a phlegmon, but actually the anastomosis and intestine was below the phlegmon and still protected by the omentum. We had a good anastomosis, able to easily bring the transverse colon to the descending colon without any tension and then elected to do another primary anastomosis, made a defect in the tenia of the transverse colon and of the descending colon with a Bovie electrocautery, placed a FAVIAN on either side, clamped, held for 30 seconds, then fired thereby creating a [id number] functional end-to-end anastomosis through a 3-0 Vicryl crotch stitch and then grasped the colo-colotomy with Allises and then using another FAVIAN-75 blue reload to close the distal portion. This closed nicely, reinforced the hchp-fz-[id number] anastomosis with some 3-0 Vicryl pop-offs, again copiously irrigated with warm normal saline. There was a little bit of bleeding. This was controlled with Bovie electrocautery. I looked around, there was no gross contamination, still had the phlegmon in the left upper quadrant. Bleeding appeared to be controlled, I placed a 19-Maldivian Jn drain brought in through the abdominal wall with a stab incision and then a tonsil placed through, grasped the Jn drain and pulled this through from the inside to out, sutured this in place with a 2-0 silk suture, placed this up the left upper quadrant above the anastomosis and in the phlegmon. Again, looked around, everything looked good, anastomosis looked good. Good seal opening in between the 2 portions of colon. There was no tension on this anastomosis and at this point the patient had had placed a body wall retractor, this was removed, removed all sponges and then closed the incision with #1 double stranded PDS suture running from superior portion to inferior portion tying to itself, copiously irrigated the midline incision with more saline and then closed the midline incision, the skin with lauro. Area was cleaned and dried, pressure dressing placed. The patient tolerated the procedure. According to the anesthesiologist at the end of the case, he told the patient had gone into AFib with rapid RVR and had a run of actual ventricular tachycardia. He still had a pulse the entire time. He was taken to recovery room. He was out of the V-tach and just having AFib with RVR, so it was elected to send him to the EICU cardiology and medicine consults. Otherwise, transferred in stable condition. Sponge, instrument and needle count correct at the end of the case. Dr. Bradford assisted in this case helping to make incisions, close incisions, identify anatomy, hold anatomy out of the way. Job ID: [id number] DocumentID: [id number] Dictated Date: 06/10/2021 14:50:38 Cable Tool Driller Date: 06/10/2021 19:14:44 Dictated By: NAOMI SALCEDO DO
--- NOTE | 2021-06-10 20:25 | Progress Note ---
Standard Progress Note Progress Notes/Assess & Plan Date Seen by a Provider: Jun 10, 2021 Time Seen by a Provider: 20:25 Progress/Assessment & Plan called for nausea, QTc interval is 525, not given IV Zofran, will try IV Benadryl 25 mg MD SEAN Mays JOSEPH K MD Jun 10, 2021 20:25
[2021-06-10] MEDS ORDERED: diphenhydrAMINE 50 MG/ML INJ (BENADRYL) IVP ONE (20:30)
[2021-06-10] MEDS ORDERED: diphenhydrAMINE 50 MG/ML INJ (BENADRYL) ONE (20:37)
[2021-06-10] MEDS: GABAPENTIN 600 MG (NEURONTIN) TAB PO SCH (20:43)
--- NOTE | 2021-06-10 20:58 | Consultation - Hospitalist ---
HPI History of Present Illness: HPI/Chief Complaint Jasen Theodore is a 70 year old male with PMH HTN, AFib, colon cancer s/p resection, who presented with anastomotic leak. He underwent resection of colon mass on 05/06. He was later found to have an anastomotic leak with possible abscess and was scheduled for surgery. The hospitalist service has been cons ulted for medical comanagement. Upon my exam, he is in the ICU post-op. He denies abdominal pain. He denies shortness of breath. He has not been able to eat or drink anything yet. He has no other complaints or concerns. Source: patient Exam Limitations: no limitations Date Seen 06/10/21 Attending Physician Jose Salcedo DO PCP No,Local Physician Referring Physician Date of Admission Jun 09, 2021 at 11:06 Home Medications & Allergies Home Medications Reviewed patient Home Medication Reconciliation performed by pharmacy medication reconciliations speech therapist technician and/or nursing. Patients Allergies have been reviewed. Allergies Allergies Coded Allergies morphine (Unverified Allergy, Unknown, 04/29/21) Past Zrllwbd-Ockcrs-Tchhmy Hx Patient Social History Tobacco Use?: Yes Tobacco type used: Cigars Smoking Status: Current Someday Smoker Smokeless Tobacco Frequency: Never a User Use of E-Cig and/or Vaping dev: No Substance use?: No Alcohol Use?: Yes Alcohol type: Hard Liquor Alcohol Frequency: Once in a while Pt feels they are or have been: No Immunizations Up To Date Date of Influenza Vaccine: Jan 09, 2021 First/Initial COVID19 Vaccinat: JUNE 2020 Second COVID19 Vaccination Abdi: JULY 2020 Tetanus Booster (TDap): More Than 5 Years Hepatitis A: No Hepatitis B: No Seasonal Allergies Seasonal Allergies: No Current Status Advance Directives: No Communicates: Verbally Primary Language: Spanish Preferred Spoken Language: Spanish Is interpretation needed?: No Implanted or Applied Medical D: None Past Medical History Surgeries: Abdominal (colon resection) Currently Using CPAP: No Currently Using BIPAP: No Atrial Fibrillation, Hypertension Loss of Vision: Denies Hearing Impairment: Denies Colon Anxiety, Depression Blood Disorders: No Family Medical History Cancer (mom had ovarian cancer; dad had lung) Review of Systems Constitutional: no symptoms reported EENTM: no symptoms reported Respiratory: no symptoms reported Cardiovascular: no symptoms reported Gastrointestinal: no symptoms reported Genitourinary: no symptoms reported Musculoskeletal: no symptoms reported Skin: no symptoms reported Psychiatric/Neurological: No Symptoms Reported Physical Exam Physical Exam Vital Signs Vital Signs - First Documented 06/09/21 06/09/21 11:23 12:00 Temp 36.8 Pulse 103 Resp 20 B/P (MAP) 96/71 (79) Pulse Ox 93 O2 Delivery Room Air Capillary Refill : Height, Weight, BMI Height: '" Weight: lbs. oz. kg; 36.16 BMI Method: General Appearance: No Apparent Distress, Obese Eyes: Bilateral Eye Normal Inspection, Bilateral Eye PERRL, Bilateral Eye EOMI HEENT: PERRL/EOMI, Pharynx Normal Neck: Normal Inspection, Supple Respiratory: Lungs Clear, Normal Breath Sounds, No Respiratory Distress Cardiovascular: No Murmur, Irregularly Irregular, Tachycardia Extremity: Normal Inspection, No Pedal Edema Neurologic/Psychiatric: Alert, Depressed Affect Skin: Normal Color, Warm/Dry Results Results/Procedures Labs Laboratory Tests 06/10/21 05:51 06/10/21 14:32 Patient resulted labs reviewed. Imaging: Reviewed Imaging Report Assessment/Plan Assessment and Plan Assess & Plan/Chief Complaint Colon cancer s/p partial colectomy Anastomotic leak Surgery primary s/p original colon resection 05/06 s/p redo colon resection due to anastomotic dehiscence 06/10 Started on Cipro and Flagyl HTN AFib Cardiology consutled Resume home meds once able Diagnosis/Problems Diagnosis/Problems (1) Anastomotic leak of intestine Status: Acute (2) HTN (hypertension) Status: Chronic (3) Afib Status: Chronic AMANDA SIMMS MD Jun 10, 2021 20:58
[2021-06-11] VITALS (24 sets, daily range): BP systolic 109–130; BP diastolic 70–92
[2021-06-11] MEDS: CIPROFLOXACIN IV 400MG/200ML 200 ML IV SCH ×3 (00:06→23:06)
[2021-06-11] MEDS: fentaNYL INJ 100 MCG/2 ML AMP IVP PRN ×4 (00:09→20:00)
[2021-06-11] MEDS: dilTIAZem DRIP PRE-MIX 125 ML IV SCH ×2 (04:38→20:00)
[2021-06-11 04:52] LABS: BASOPHILS # (AUTO) 0.1 10^3/uL (0.0-0.1); BASOPHILS % (AUTO) 0 % (0-10); EOSINOPHILS % (AUTO) 0 % (0-10); HEMATOCRIT 34 % (40-54); LYMPHOCYTES # (AUTO) 0.8 10^3/uL (1.0-4.0); LYMPHOCYTES % (AUTO) 3 % (12-44); MEAN CORPUSCULAR HEMOGLOBIN 22 pg (25-34); MEAN CORPUSCULAR HGB CONC 29 g/dL (32-36); MEAN CORPUSCULAR VOLUME 76 fL (80-99); MONOCYTES # (AUTO) 0.9 10^3/uL (0.0-1.0); MONOCYTES % (AUTO) 3 % (0-12); NEUTROPHILS # (AUTO) 26.1 10^3/uL (1.8-7.8); NEUTROPHILS % (AUTO) 93 % (42-75); PLATELET COUNT 329 10^3/uL (130-400)
[2021-06-11 05:02] LABS: POTASSIUM 5.2 MMOL/L (3.6-5.0)
[2021-06-11 05:03] LABS: CALCIUM 9.7 MG/DL (8.5-10.1)
[2021-06-11 05:08] LABS: CREATININE SERUM 1.16 MG/DL (0.60-1.30); PHOSPHORUS 5.1 MG/DL (2.3-4.7)
[2021-06-11 05:10] LABS: MAGNESIUM 2.1 MG/DL (1.6-2.4)
--- NOTE | 2021-06-11 05:57 | Progress Note - Surgery ---
ALEK TSYON 06/11/21 0557: Subjective Date Seen by a Provider: Jun 11, 2021 Time Seen by a Provider: 06:00 Subjective/Events-last exam S/P colon resection with primary anastomosis and washout abdomen with placement of jn drain. The jn drain was placed due to phlegman in LUQ. Pt was in AFib during the surgery with an episode of VTach that subsided. He was given Diltiazem. Pt looks more pale this morning, but states he feels "not too bad" and was making jokes. He reports 6/10 pain in his RLQ. He was nauseous overnight and was given Benadryl, which helped it subside (benedryll was chosen since his QTC is 525). Has not eaten or drank postop. Denies feeling gassy or any gas pain. Pt's last bowel movement was around 8am yesterday. His urine output has been low, with 21.5 mL/hr this morning. It is a dark regan color. His incision is freshly dressed. The nurse reports it is intact with minimal shadowing at the bottom. His drain has a small amount of mucousy red blood in it, with 40 mL of drainage recorded. Pt denies CP, palpitations, SOB, and fever at this time. Review of Systems General: No Chills; Fatigue HEENT: No Head Aches, No Visual Changes Pulmonary: No Dyspnea, No Cough Cardiovascular: No: Chest Pain, Palpitations Gastrointestinal: Nausea, Abdominal Pain; No: Vomiting Genitourinary: No Dysuria; Other (low output) Musculoskeletal: No: neck pain, leg pain Neurological: No: Weakness, Change in speech Focused Exam Respiratory: No Accessory Muscle Use, No Respiratory Distress, Crackles, Wheezing Cardiovascular: No Murmur, Irregularly Irregular Peripheral Pulses: 2+ Radial Pulses (R), 2+ Radial Pulses (L) Skin: warm/dry, other (incisions intact, dry; slight shadowing on lower edge of main abdominal incision) Objective Exam Vital Signs Date Time Temp Pulse Resp B/P (MAP) Pulse Ox O2 Delivery O2 Flow Rate FiO2 06/11/21 04:42 36.0 High Flow N/C 2.00 06/11/21 03:00 71 22 111/75 (87) 97 High Flow N/C 3.00 06/11/21 02:16 High Flow N/C 3.00 06/11/21 02:00 67 20 114/81 (92) 98 High Flow N/C 4.00 06/11/21 01:00 73 20 115/82 (93) 98 High Flow N/C 4.00 06/11/21 01:00 77 06/11/21 00:05 35.8 High Flow N/C 4.00 06/11/21 00:00 77 22 125/81 (96) 98 High Flow N/C 5.00 06/11/21 00:00 High Flow N/C 4.00 06/10/21 23:05 Nasal Cannula 3.00 06/10/21 23:00 80 29 126/89 (101) 99 High Flow N/C 5.00 06/10/21 22:00 85 25 122/87 (99) 99 High Flow N/C 5.00 06/10/21 21:14 High Flow N/C 5.00 06/10/21 21:00 98 18 120/63 (82) 99 High Flow N/C 6.00 06/10/21 20:00 107 22 124/84 (97) 98 High Flow N/C 6.00 06/10/21 20:00 High Flow N/C 6.00 06/10/21 19:52 35.8 06/10/21 19:26 124 06/10/21 19:00 106 28 127/86 (100) 97 High Flow N/C 6.00 06/10/21 19:00 High Flow N/C 6.00 06/10/21 18:00 103 28 120/99 (106) 97 Room Air 06/10/21 17:00 135 28 111/96 (101) 96 Room Air 06/10/21 16:00 36.4 06/10/21 16:00 124 29 124/76 (92) 99 Room Air 06/10/21 16:00 Non Rebreather 15.00 06/10/21 15:00 122 22 115/89 (98) 92 Room Air 06/10/21 14:00 116 31 96/80 (85) 97 Room Air 06/10/21 13:45 Non Rebreather 15.00 06/10/21 13:45 117 06/10/21 13:40 Non Rebreather 10 06/10/21 13:31 36.1 28 119/49 (72) 96 Non Rebreather 10 06/10/21 13:30 94/55 (68) 06/10/21 13:26 30 98/77 (84) 94 Non Rebreather 10 06/10/21 13:20 30 87/73 (78) 94 Non Rebreather 10 06/10/21 13:17 28 91/75 (80) 93 Non Rebreather 10 06/10/21 13:10 Non Rebreather 10 06/10/21 13:10 36.4 33 96/72 (80) 92 Non Rebreather 10 06/10/21 08:00 Room Air 06/10/21 07:36 35.6 101 20 114/71 (85) 98 Room Air I & O 06/11/21 07:00 Intake Total 3500 ml Output Total 960 ml Balance 2540 ml Capillary Refill : General Appearance: No Apparent Distress, Obese Respiratory: No Accessory Muscle Use, No Respiratory Distress, Crackles, Wheezing Cardiovascular: No Murmur, Irregularly Irregular Peripheral Pulses: 2+ Dorsalis Pedis (R), 2+ Left Dors-Pedis (L), 2+ Radial Pulses (R), 2+ Radial Pulses (L) Gastrointestinal: tenderness (incisional; around drain), other (Drain in LUQ has minimal drainage of blood currently) Extremity: Pedal Edema Neurologic/Psychiatric: Alert, Oriented x3, Normal Mood/Affect Skin: Warm/Dry, Other (incisions intact, dry; slight shadowing around lower edge of main abdominal incision; chronic dark discoloration bilat shins) Results Lab Laboratory Tests 06/10/21 10:00: Influenza Type A (RT-PCR) Not Detected, Influenza Type B (RT-PCR) Not Detected, SARS-CoV-2 RNA (RT-PCR) Not Detected 06/10/21 14:32: White Blood Count 22.7H, Red Blood Count 5.00, Hemoglobin 11.1L, Hematocrit 38L, Mean Corpuscular Volume 77L, Mean Corpuscular Hemoglobin 22L, Mean Corpuscular Hemoglobin Concent 29L, Red Cell Distribution Width 17.0H, Platelet Count 352, Mean Platelet Volume 8.8L, Sodium Level 132L, Potassium Level 4.9, Chloride Level 94L, Carbon Dioxide Level 25, Anion Gap 13, Blood Urea Nitrogen 14, Creatinine 1.24, Estimat Glomerular Filtration Rate 63, BUN/Creatinine Ratio 11, Glucose Level 226H, Calcium Level 9.5, Troponin I < 0.028 06/11/21 04:36: White Blood Count 28.0H, Red Blood Count 4.50, Hemoglobin 10.0L, Hematocrit 34L, Mean Corpuscular Volume 76L, Mean Corpuscular Hemoglobin 22L, Mean Corpuscular Hemoglobin Concent 29L, Red Cell Distribution Width 17.0H, Platelet Count 329, Mean Platelet Volume 9.0, Sodium Level 131L, Potassium Level 5.2H, Chloride Level 96L, Carbon Dioxide Level 22, Anion Gap 13, Blood Urea Nitrogen 16, Creatinine 1.16, Estimat Glomerular Filtration Rate 69, BUN/Creatinine Ratio 14, Glucose Level 210H, Calcium Level 9.7, Immature Granulocyte % (Auto) 1, Neutrophils (%) (Auto) 93H, Lymphocytes (%) (Auto) 3L, Monocytes (%) (Auto) 3, Eosinophils (%) (Auto) 0, Basophils (%) (Auto) 0, Neutrophils # (Auto) 26.1H, Lymphocytes # (Auto) 0.8L, Monocytes # (Auto) 0.9, Eosinophils # (Auto) 0.0, Basophils # (Auto) 0.1, Immature Granulocyte # (Auto) 0.2H, Phosphorus Level 5.1H, Magnesium Level 2.1 Microbiology 06/09/21 Blood Culture - Preliminary, Resulted No growth Assessment/Plan Assessment/Plan Assessment/Plan Hx of Colon cancer Resection and primary anastomosis on 05/06 and 06/[address] LUQ Chronic Atrial Fibrillation, episode VTach HTN Nausea CXR 3-- per radiology, R mid and lower lung ruiz have patchy infiltrate EKG 06/10-- AFib, ventricular premature complex, aberrant complex possibly supraventricular, nonspecific intraventricular conduction delay, borderline ST d epression in anterior leads, considering posterior infarct IV fluids Pain management Benadryl for nausea Continue Met/Cipro NPO, bowel rest Lovenox on hold postop Monitor urine output, labs, and vitals NAOMI HODGE DO 06/11/21 1651: Subjective Time Seen by a Provider: 11:20 Subjective/Events-last exam Pt seen and examined, states he is doing better today. Pain is mostly controlled. Review of Systems General: No Chills; Fatigue Pulmonary: No Dyspnea, No Cough Cardiovascular: No: Chest Pain, Palpitations Gastrointestinal: Nausea, Abdominal Pain; No: Vomiting Objective Exam General Appearance: No Apparent Distress, Obese Respiratory: No Accessory Muscle Use, No Respiratory Distress, Crackles, Wheezing Cardiovascular: No Murmur, Irregularly Irregular Gastrointestinal: soft, tenderness (incisional; around drain), other (Drain in LUQ has minimal drainage sero-sanguinous (mostly darker blood)) Extremity: Pedal Edema Assessment/Plan Assessment/Plan Assessment/Plan Resection and primary anastomosis on 05/06 and 06/[address] LUQ Chronic Atrial Fibrillation, episode VTach HTN Nausea CXR 06/10-- per radiology, R mid and lower lung ruiz have patchy infiltrate EKG 06/10-- AFib, ventricular premature complex, aberrant complex possibly supraventricular, nonspecific intraventricular conduction delay, borderline ST depression in anterior leads, considering posterior infarct IV fluids, Pain management, Benadryl for nausea, Continue Met/Cipro Start clears, encourage IS use and ambulation, will start Lovenox, monitor urine output (although it was better first 4 hours of am appx 50ml/hr), labs, and vitals Supervisory-Addendum Brief Verification & Attestation Participated in pt care: history, MDM, physical Personally performed: exam, history, MDM, supervision of care Care discussed with: Medical Student Procedures: n/a Verification and Attestation of Medical Student E/M Service A medical student performed and documented this service. I then reviewed and verified all information documented by the medical student and made modifications to such information, when appropriate. I personally performed a physical exam, medical decision making and then discussed any differences between the notes and made revisions as necessary to create one note. Naomi Hodge , 06/11/21 , 16:51 ALEK TYSON Jun 11, 2021 05:57 NAOMI HODGE DO Jun 11, 2021 16:51
[2021-06-11] MEDS: ACETAMINOPHEN 500 MG TAB (TYLENOL) PO SCH ×3 (06:07→21:30)
[2021-06-11] MEDS: MAGNESIUM 1 GM/100 ML IVPB 100 ML IV SCH (06:07)
[2021-06-11] MEDS: metroNIDAZOLE 500MG/100ML IVPB 100 ML IV SCH ×3 (06:07→21:30)
[2021-06-11] MEDS: POTASSIUM CL 10MEQ/50ML IVPB 50 ML IV SCH (06:07)
[2021-06-11] MEDS: KCL 20 MEQ TAB (K-DUR) PO SCH (06:08)
[2021-06-11] MEDS: LACTATED RINGERS 1,000 ML IV SCH ×3 (06:10→23:06)
--- NOTE | 2021-06-11 08:37 | Progress Note - Cardiology ---
Cardiology SOAP Progress Note Subjective: Lying in bed Feels nausea is better this morning No c/o CP, palpitations or SOB C/O abd discomfort Objective: I&O/Vital Signs 06/14/21 06/15/21 06/15/21 06/15/21 21:41 00:01 04:00 07:26 Temp 36.5 35.9 36.4 Pulse 100 88 86 Resp 18 18 18 B/P (MAP) 125/65 (85) 125/77 (93) 144/71 (95) Pulse Ox 94 97 98 88 O2 Delivery Room Air Nasal Cannula Nasal Cannula Nasal Cannula O2 Flow Rate 2.00 2.00 2.00 06/15/21 00:00 Intake Total 1890 ml Output Total 605 ml Balance 1285 ml Constitutional: AAO x 3, well-developed, well-nourished Respiratory: No accessory muscle use, No respiratory distress; chest expansion is symmetric, chest is bilaterally symmetric, rhonchi (scattered; prolonged exp phase) Cardiovascular: irregularly irregular; No JVD; S1 and S2 Gastrointestional: other (post-op abdomen - drsg D&I) Genital/Rectal: other (urinary catheter in place to DD) Extremities: no lower extremity edema bilateral Neurologic/Psychiatric: other (moves all extremities) Skin: warm/dry, other (incisions intact, dry; slight shadowing on lower edge of main abdominal incision) Results/Procedures: Labs Laboratory Tests 06/15/21 05:16: White Blood Count 17.5H, Red Blood Count 4.00L, Hemoglobin 8.8L, Hematocrit 31L, Mean Corpuscular Volume 78L, Mean Corpuscular Hemoglobin 22L, Mean Corpuscular Hemoglobin Concent 28L, Red Cell Distribution Width 17.8H, Platelet Count 320, Mean Platelet Volume 8.9L, Immature Granulocyte % (Auto) 3, Neutrophils (%) (Auto) 81H, Lymphocytes (%) (Auto) 9L, Monocytes (%) (Auto) 6, Eosinophils (%) (Auto) 1, Basophils (%) (Auto) 0, Neutrophils # (Auto) 14.2H, Lymphocytes # (Auto) 1.5, Monocytes # (Auto) 1.1H, Eosinophils # (Auto) 0.2, Basophils # (Auto) 0.0, Immature Granulocyte # (Auto) 0.5H, Sodium Level 133L, Potassium Level 4.4, Chloride Level 98, Carbon Dioxide Level 27, Anion Gap 8, Blood Urea Nitrogen 8, Creatinine 0.75, Estimat Glomerular Filtration Rate 98, BUN/Creatinine Ratio 11, Glucose Level 98, Calcium Level 9.0, Magnesium Level 2.1 Microbiology 06/10/21 MRSA Screen - Final, Complete MRSA not isolated 06/09/21 Blood Culture - Final, Complete No growth A/P: Assessment: Post colon resection with primary anastomosis, washout abdomen with placement drain on 06-10-[address] Salcedo Chronic a-fib - HR improved on Cardizem gtt - followed by Dr. Vasquez at [facility] - maintained on Eliquis 5mg BID and Cartia 120mg daily Echocardiogram of 07-15-[address] Vasquez at [facility] showed LVEF 55%. Mod dilated RV. PASP 70-75 mmHg Pulmonary HTN - followed by Dr. Moss at [facility] Plan: Continue Cardizem gtt for rate control Advise resumption of OAC as soon as allowed by surgical services for stroke prevention Monitor lab closely CRISPIN NELSON Jun 11, 2021 08:37
[2021-06-11] MEDS ORDERED: dilTIAZem120 MG (CARDIZEM CD) CAP PO SCH (09:00)
[2021-06-11] MEDS: GABAPENTIN 600 MG (NEURONTIN) TAB PO SCH ×2 (09:10→20:00)
--- NOTE | 2021-06-11 09:18 | Tele-ICU Progress Note ---
Subjective Date Seen by a Provider: Jun 11, 2021 Time Seen by a Provider: 09:18 Subjective/Events-last exam This patient was diagnosed with left colon adenocarcinoma and underwent left a hemicolectomy on 05/06/2021. Now admitted with dehiscence at the operative anastomosis. Again he underwent exploratory laparotomy with colon resection and primary anastomosis as well as washout of the abdomen with placement of Jn drain. Currently he is on oxygen 2 L nasal cannula denies any shortness of breath. Mild incisional pain present. He has A. fib currently rate controlled on Cardizem drip. Blood pressure is stable. Video visit made and discussed with the INSURANCE SALESPERSON as well as the patient. Sepsis Event Evaluation Height, Weight, BMI Height: '" Weight: lbs. oz. kg; 36.16 BMI Method: Exam Exam Patient acknowledged, consented, and participated in this virtual visit which was conducted using real time audio/video Vital Signs Date Time Temp Pulse Resp B/P (MAP) Pulse Ox O2 Delivery O2 Flow Rate FiO2 06/11/21 07:36 36.2 06/11/21 07:00 72 06/11/21 06:00 73 25 119/78 (92) 94 High Flow N/C 2.00 06/11/21 05:00 75 18 109/70 (83) 95 High Flow N/C 2.00 06/11/21 04:42 36.0 High Flow N/C 2.00 06/11/21 04:00 High Flow N/C 2.00 06/11/21 04:00 67 25 115/82 (93) 96 High Flow N/C 3.00 06/11/21 03:00 71 22 111/75 (87) 97 High Flow N/C 3.00 06/11/21 02:16 High Flow N/C 3.00 06/11/21 02:00 67 20 114/81 (92) 98 High Flow N/C 4.00 06/11/21 01:00 73 20 115/82 (93) 98 High Flow N/C 4.00 06/11/21 01:00 77 06/11/21 00:05 35.8 High Flow N/C 4.00 06/11/21 00:00 77 22 125/81 (96) 98 High Flow N/C 5.00 06/11/21 00:00 High Flow N/C 4.00 06/10/21 23:05 Nasal Cannula 3.00 06/10/21 23:00 80 29 126/89 (101) 99 High Flow N/C 5.00 06/10/21 22:00 85 25 122/87 (99) 99 High Flow N/C 5.00 06/10/21 21:14 High Flow N/C 5.00 06/10/21 21:00 98 18 120/63 (82) 99 High Flow N/C 6.00 06/10/21 20:00 107 22 124/84 (97) 98 High Flow N/C 6.00 06/10/21 20:00 High Flow N/C 6.00 06/10/21 19:52 35.8 06/10/21 19:26 124 06/10/21 19:00 106 28 127/86 (100) 97 High Flow N/C 6.00 06/10/21 19:00 High Flow N/C 6.00 06/10/21 18:00 103 28 120/99 (106) 97 Room Air 06/10/21 17:00 135 28 111/96 (101) 96 Room Air 06/10/21 16:00 36.4 06/10/21 16:00 124 29 124/76 (92) 99 Room Air 06/10/21 16:00 Non Rebreather 15.00 06/10/21 15:00 122 22 115/89 (98) 92 Room Air 06/10/21 14:00 116 31 96/80 (85) 97 Room Air 06/10/21 13:45 Non Rebreather 15.00 06/10/21 13:45 117 06/10/21 13:40 Non Rebreather 10 06/10/21 13:31 36.1 28 119/49 (72) 96 Non Rebreather 10 06/10/21 13:30 94/55 (68) 06/10/21 13:26 30 98/77 (84) 94 Non Rebreather 10 06/10/21 13:20 30 87/73 (78) 94 Non Rebreather 10 06/10/21 13:17 28 91/75 (80) 93 Non Rebreather 10 06/10/21 13:10 Non Rebreather 10 06/10/21 13:10 36.4 33 96/72 (80) 92 Non Rebreather 10 I & O 06/11/21 07:00 Intake Total 3500 ml Output Total 1090 ml Balance 2410 ml Height & Weight Height: '" Weight: lbs. oz. kg; 36.16 BMI Method: General Appearance: No Apparent Distress, Obese Respiratory: No Accessory Muscle Use, No Respiratory Distress, Crackles, Wheezing Cardiovascular: No Murmur, Irregularly Irregular Peripheral Pulses: 2+ Dorsalis Pedis (R), 2+ Left Dors-Pedis (L), 2+ Radial Pulses (R), 2+ Radial Pulses (L) Gastrointestinal: tenderness (incisional; around drain), other (Drain in LUQ has minimal drainage of blood currently) Extremity: Pedal Edema Neurologic/Psychiatric: Alert, Oriented x3, Normal Mood/Affect Skin: Warm/Dry, Other (incisions intact, dry; slight shadowing around lower edg e of main abdominal incision; chronic dark discoloration bilat shins) Other comments PE PER RN Results Lab Laboratory Tests 06/10/21 05:51 06/10/21 14:32 06/11/21 04:36 Assessment/Plan Assessment/Plan Assessment. 1. Anastomotic leak of previously done colon resection 05/06/2021. 2. Status post redo colon resection and anastomosis. 3. History of hypertension currently stable 4. History of atrial fibrillation cardiology on the case. Recommendations 1. Continue IV antibiotics per primary care 2. Perioperative surgical management per general surgery 3. DVT prophylaxis and ulcer prophylaxis 4. Continue monitor hemoglobin and a BMP. 5. Video visit made and discussed with the patient and INSURANCE SALESPERSONhr consultant: Critically Ill Patient (20) RODRICK SPICER MD Jun 11, 2021 09:18
[2021-06-11] MEDS ORDERED: polyethylene glycoL POWDER 17 GM (MIRALAX) PACK PO PRN (09:30)
--- NOTE | 2021-06-11 10:39 | Progress Note ---
Subjective Subjective Date Seen by Provider: Jun 11, 2021 Time Seen by Provider: 08:15 Patient did not sleep much last night and is tired, but is otherwise feeling okay. He had a little bit of nausea and dry-heaving last night but that has improved. Denies any sweats/chills, chest pain or bloating. He has not passed any gas since the surgery or had a bowel movement. Review of Systems General: No Chills; Fatigue HEENT: No Head Aches, No Visual Changes Pulmonary: No Dyspnea, No Cough Cardiovascular: No: Chest Pain, Palpitations Gastrointestinal: Nausea, Abdominal Pain; No: Vomiting Genitourinary: No Dysuria Musculoskeletal: No: neck pain, leg pain Neurological: No: Weakness, Change in speech Objective Exam Vital Signs Vital Signs Date Time Temp Pulse Resp B/P (MAP) Pulse Ox O2 Delivery O2 Flow Rate FiO2 06/11/21 10:00 78 25 122/84 (97) 93 High Flow N/C 2.00 06/11/21 09:00 74 27 109/80 (90) 93 High Flow N/C 2.00 06/11/21 08:00 71 25 122/80 (94) 94 High Flow N/C 2.00 06/11/21 08:00 Non Rebreather 15.00 06/11/21 07:36 36.2 06/11/21 07:00 72 06/11/21 07:00 81 27 115/76 (89) 94 High Flow N/C 2.00 06/11/21 06:00 73 25 119/78 (92) 94 High Flow N/C 2.00 06/11/21 05:00 75 18 109/70 (83) 95 High Flow N/C 2.00 06/11/21 04:42 36.0 High Flow N/C 2.00 06/11/21 04:00 High Flow N/C 2.00 06/11/21 04:00 67 25 115/82 (93) 96 High Flow N/C 3.00 06/11/21 03:00 71 22 111/75 (87) 97 High Flow N/C 3.00 06/11/21 02:16 High Flow N/C 3.00 06/11/21 02:00 67 20 114/81 (92) 98 High Flow N/C 4.00 06/11/21 01:00 73 20 115/82 (93) 98 High Flow N/C 4.00 06/11/21 01:00 77 06/11/21 00:05 35.8 High Flow N/C 4.00 06/11/21 00:00 77 22 125/81 (96) 98 High Flow N/C 5.00 06/11/21 00:00 High Flow N/C 4.00 06/10/21 23:05 Nasal Cannula 3.00 06/10/21 23:00 80 29 126/89 (101) 99 High Flow N/C 5.00 06/10/21 22:00 85 25 122/87 (99) 99 High Flow N/C 5.00 06/10/21 21:14 High Flow N/C 5.00 06/10/21 21:00 98 18 120/63 (82) 99 High Flow N/C 6.00 06/10/21 20:00 107 22 124/84 (97) 98 High Flow N/C 6.00 06/10/21 20:00 High Flow N/C 6.00 06/10/21 19:52 35.8 06/10/21 19:26 124 06/10/21 19:00 106 28 127/86 (100) 97 High Flow N/C 6.00 06/10/21 19:00 High Flow N/C 6.00 06/10/21 18:00 103 28 120/99 (106) 97 Room Air 06/10/21 17:00 135 28 111/96 (101) 96 Room Air 06/10/21 16:00 36.4 06/10/21 16:00 124 29 124/76 (92) 99 Room Air 06/10/21 16:00 Non Rebreather 15.00 06/10/21 15:00 122 22 115/89 (98) 92 Room Air 06/10/21 14:00 116 31 96/80 (85) 97 Room Air 06/10/21 13:45 Non Rebreather 15.00 06/10/21 13:45 117 06/10/21 13:40 Non Rebreather 10 06/10/21 13:31 36.1 28 119/49 (72) 96 Non Rebreather 10 06/10/21 13:30 94/55 (68) 06/10/21 13:26 30 98/77 (84) 94 Non Rebreather 10 06/10/21 13:20 30 87/73 (78) 94 Non Rebreather 10 06/10/21 13:17 28 91/75 (80) 93 Non Rebreather 10 06/10/21 13:10 Non Rebreather 10 06/10/21 13:10 36.4 33 96/72 (80) 92 Non Rebreather 10 I & O 06/11/21 07:00 Intake Total 3500 ml Output Total 1090 ml Balance 2410 ml General Appearance: No Apparent Distress, Obese Eyes: Bilateral Eye Normal Inspection, Bilateral Eye PERRL, Bilateral Eye EOMI HEENT: PERRL/EOMI Neck: Full Range of Motion, Normal Inspection, Non Tender, Supple Respiratory: No Accessory Muscle Use, No Respiratory Distress, Crackles, Wheezing Cardiovascular: No Murmur, Irregularly Irregular Gastrointestinal: Tenderness Back: Normal Inspection, No CVA Tenderness Extremity: Normal Capillary Refill, Normal Inspection, Normal Range of Motion, Non Tender, No Pedal Edema Neurologic/Psychiatric: Alert, Oriented x3, Normal Mood/Affect Skin: Warm/Dry, Other (incisions intact, dry; slight shadowing around lower edge of main abdominal incision; chronic dark discoloration bilat shins) Results Lab Laboratory Tests 06/10/21 14:32: White Blood Count 22.7H, Red Blood Count 5.00, Hemoglobin 11.1L, Hematocrit 38L, Mean Corpuscular Volume 77L, Mean Corpuscular Hemoglobin 22L, Mean Corpuscular Hemoglobin Concent 29L, Red Cell Distribution Width 17.0H, Platelet Count 352, Mean Platelet Volume 8.8L, Sodium Level 132L, Potassium Level 4.9, Chloride Level 94L, Carbon Dioxide Level 25, Anion Gap 13, Blood Urea Nitrogen 14, Creatinine 1.24, Estimat Glomerular Filtration Rate 63, BUN/Creatinine Ratio 11, Glucose Level 226H, Calcium Level 9.5, Troponin I < 0.028 06/11/21 04:36: White Blood Count 28.0H, Red Blood Count 4.50, Hemoglobin 10.0L, Hematocrit 34L, Mean Corpuscular Volume 76L, Mean Corpuscular Hemoglobin 22L, Mean Corpuscular Hemoglobin Concent 29L, Red Cell Distribution Width 17.0H, Platelet Count 329, Mean Platelet Volume 9.0, Sodium Level 131L, Potassium Level 5.2H, Chloride Level 96L, Carbon Dioxide Level 22, Anion Gap 13, Blood Urea Nitrogen 16, Cr eatinine 1.16, Estimat Glomerular Filtration Rate 69, BUN/Creatinine Ratio 14, Glucose Level 210H, Calcium Level 9.7, Immature Granulocyte % (Auto) 1, Neutrophils (%) (Auto) 93H, Lymphocytes (%) (Auto) 3L, Monocytes (%) (Auto) 3, Eosinophils (%) (Auto) 0, Basophils (%) (Auto) 0, Neutrophils # (Auto) 26.1H, Lymphocytes # (Auto) 0.8L, Monocytes # (Auto) 0.9, Eosinophils # (Auto) 0.0, Basophils # (Auto) 0.1, Immature Granulocyte # (Auto) 0.2H, Phosphorus Level 5.1H, Magnesium Level 2.1 Microbiology 06/10/21 MRSA Screen - Final, Complete MRSA not isolated 06/09/21 Blood Culture - Preliminary, Resulted No growth Assessment/Plan Assessment/Plan Assessment and Plan Colon cancer s/p partial colectomy Anastomotic leak Surgery primary s/p original colon resection 05/06 s/p repeat colon resection due to anastomotic dehiscence 06/10 Continuing IVF, Cipro and Flagyl PT/OT, Incentive Spirometer ordered HTN AFib Cardiology following Cardizem gtt Eliquis held Resume home meds once able Hyperkalemia 5.2, asymptomatic, will monitor DVT prophylaxis: Lovenox Supervisory-Addendum Brief Verification & Attestation Participated in pt care: history, MDM, physical Personally performed: exam, history, MDM, supervision of care Care discussed with: Medical Student Procedures: n/a Results interpretation: Verified all documentation A medical student performed and documented this service in my presence. I reviewed and verified all information documented by the medical student and made modifications to such information, when appropriate. I personally performed the physical exam and medical decision making. DEDE LOCKWOOD Jun 11, 2021 10:39 AMANDA SIMMS MD Jun 11, 2021 20:34
--- NOTE | 2021-06-11 13:47 | Anesthesia-General Post-Op ---
General Patient Condition Mental Status/LOC: Same as Preop Cardiovascular: Satisfactory Nausea/Vomiting: Absent Respiratory: Satisfactory Pain: Controlled Complications: Absent Post Op Complications Complications None Follow Up Care/Instructions Patient Instructions None needed. Anesthesia/Patient Condition Patient Condition Patient is doing well, no complaints, stable vital signs, no apparent adverse anesthesia problems. No complications reported per nursing. GASTON HAYWOOD CRNA Jun 11, 2021 13:47
--- NOTE | 2021-06-11 13:53 | Physical Therapy Evaluation ---
PT Evaluation-General Medical Diagnosis Admission Date Jun 09, 2021 at 11:06 Medical Diagnosis: small bowel obstruction Onset Date: Jun 09, 2021 Therapy Diagnosis Therapy Diagnosis: weakness, debility Precautions Precautions/Isolations: Fall Prevention, Standard Precautions Referral Physician: Kanika Reason for Referral: Evaluation/Treatment Medical History Pertinent Medical History: Atrial Fib, HTN Additional Medical History Colon Cancer Current History Patient direct admit after abdominal surgery. Reviewed History: Yes Social History Home: Single Level Current Living Status: Spouse Entry Into Home: Level Entry Prior Prior Level of Function SCALE: Activities may be completed with or without assistive devices. 0-Zqmenyfvux-flxvcmf completes the activity by him/herself with no assistance from a helper. 5-Set-up or Clean-up Assistance-helper sets up or cleans up; patient completes activity. [place] assists only prior to or following the activity. 4-Supervision or Touching Assistance-helper provides verbal cues and/or touching/steadying and/or contact guard assistance as patient completes activity. Assistance may be provided throughout the activity or intermittently. 3-Partial/Moderate Assistance-helper does LESS THAN HALF the effort. [place] lifts, holds or supports trunk or limbs, but provides less than half the effort. 2-Substantial/Maximal Assistance-helper does MORE THAN HALF the effort. [place] lifts or holds trunk or limbs and provides more than half the effort. 3-Zjetxgscp-gtvfyo does ALL the effort. Patient does none of the effort to complete the activity. Or, the assistance of 2 or more helpers is required for the patient to complete the activity. If activity was not attempted, code reason: 7-Patient Refused. 9-Not Applicable-not attempted and the patient did not perform the activity before the current illness, exacerbation or injury. 10-Not Attempted due to Environmental Limitations-(lack of equipment, weather restraints, etc.). 88-Not Attempted due to Medical Conditions or Safety Concerns. Bed Mobility: 6 Transfers (B,C,W/C): 6 Gait: 6 Indoor Mobility (Ambulation): Independent Prior Devices Use: None PT Evaluation-Current Subjective Patient presented laying in bed and agreed to sit in the chair. Objective Patient Orientation: Person, Place, Time, Situation Attachments: SCD's, Oxygen, Drains, [place] Catheter, IV ROM/Strength ROM Lower Extremities WFL Strength Lower Extremities 4/5 strength bilaterally grossly Integumentary/Posture Bowel Incontinence: No Bladder Incontinence: [place] Cath Sensory Vision: Functional Hearing: Functional Transfers Lying to Sitting/Side of Bed(Q: 3 Sit to Stand (QC): 3 Chair/Sxa-ed-[place]ga[place] Xfer(QC): 3 Patient required min assist for all transfers Gait Does the Patient Walk?: No and Walking Goal IS indicated Mode of Locomotion: Walk Anticipated Mode of Locomotion: Walk Gait Assistive Device: FWW Balance Sitting Static: Normal Sitting Dynamic: Normal Standing Static: Normal Standing Dynamic: Fair Assessment/Needs Patient performed bed mobility and transferred to the chair during therapy session. Patient required min assist for all transfers and was able to stand and pivot to the chair with min assist. Patient reported slight pain while sitting EOB but his pain decreased while sitting in the chair. Rehab Potential: Fair PT Mcc Goals Mcc Goals PT Mcc Goals Time Frame: Jun 20, 2021 Roll Left & Right (QC): 6 Sit to Lying (QC): 6 Lying-Sitting on Side/Bed(QC): 6 Sit to Stand (QC): 6 Chair/Mdj-vh-Ycmks Xfer(QC): 6 Toilet Transfer (QC): 6 Does the Patient Walk: Yes Walk 10 feet (QC): 6 Walk 50ft with 2 Turns (QC): 6 Walk 150 ft (QC): 6 PT Plan Problem List Problem List: Activity Tolerance, Functional Strength, Safety, Balance, Gait, Transfer, Bed Mobility, ROM Treatment/Plan Treatment Plan: Continue Plan of Care Treatment Plan: Bed Mobility, Education, Functional Activity Sukumar, Functional Strength, Gait, Safety, Therapeutic Exercise, Transfers Treatment Duration: Jun 20, 2021 Frequency: 6 times per week Estimated Hrs Per Day: .25 hour per day Time/GCodes Time In: 1305 Time Out: 1320 Total Billed Treatment Time: 15 Total Billed Treatment 1 Visit EVMod 15 min CATHERINE VACA PT Jun 11, 2021 13:53
--- NOTE | 2021-06-11 14:11 | Occupational Therapy Eval ---
OT Evaluation-General/PLF Medical Diagnosis Admission Date Jun 09, 2021 at 11:06 Medical Diagnosis: small bowel obstruction Onset Date: Jun 09, 2021 Therapy Diagnosis Therapy Diagnosis: reduced adl status Precautions Precautions/Isolations: Fall Prevention, Standard Precautions Referral Physician: Kanika Uribe Reason: Evaluation/Treatment Medical History Pertinent Medical History: Atrial Fib, HTN Current History Pt S/p colon resection with placement of bala drain. Difficulty getting thorough prior level of function. Pt often short with responses and changes answers frequently. No family present to verify accuracy of responses. Per patient, he lives with his in a multilevel home but is able to stay on the main level. Pt then states that because the shower is on the 2nd floor, he goes to his ex-'s home to bathe. She has a walk in shower, no shower chair. When asked if he uses any AD, pt verbalizes "I have lot's of canes," but does not clarify if he was using them. Per patient, he was indep with adls and his does all the iadls. Reviewed History: Yes Social History Home: Single Level Current Living Status: Spouse Entry Into Home: Level Entry ADL-Prior Level of Function SCALE: Activities may be completed with or without assistive devices. 7-Luzxsgmxwm-dtjjnpi completes the activity by him/herself with no assistance from a helper. 5-Set-up or Clean-up Assistance-helper sets up or cleans up; patient completes activity. [place] assists only prior to or following the activity. 4-Supervision or Touching Assistance-helper provides verbal cues and/or touching/steadying and/or contact guard assistance as patient completes activity. Assistance may be provided throughout the activity or intermittently. 3-Partial/Moderate Assistance-helper does LESS THAN HALF the effort. [place] lifts, holds or supports trunk or limbs, but provides less than half the effort. 2-Substantial/Maximal Assistance-helper does MORE THAN HALF the effort. [place] lifts or holds trunk or limbs and provides more than half the effort. 6-Mxqrzhzyd-ebljqg does ALL the effort. Patient does none of the effort to complete the activity. Or, the assistance of 2 or more helpers is required for the patient to complete the activity. If activity was not attempted, code reason: 7-Patient Refused. 9-Not Applicable-not attempted and the patient did not perform the activity before the current illness, exacerbation or injury. 10-Not Attempted due to Environmental Limitations-(lack of equipment, weather restraints, etc.). 88-Not Attempted due to Medical Conditions or Safety Concerns. Self Care: Unknown Functional Cognition: Unknown OT Current Status Subjective Pt reports pain in abdominal region. No numerical value given. RN present and aware. Appearance Pt left sitting upright in chair, all needs within reach. 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 Appears confused, requires simplification and repetition of commands. When asked to demonstrate ability to reach feet in order to don/doff socks, pt immediately reports inability to complete. No problem solving exhibited. OT demonstrated cross over method, which pt was then able to perform. Min-mod a still needed due to SOA and pain with task. Cues for PLB as pt often desating into mid 80's with activity. It appears pt often holds his breath while attempting task. He stood with mod a from low surface. Poor standing tolerance, unable to tolerate >30 seconds. MIn-mod a for balance with static standing. Education OT Patient Education: Correct positioning, Energy conservation, Modified ADL techniques, Purpose of tx/functional activities, Safety issues, Transfer techniques Teaching Recipient: Patient Teaching Methods: Demonstration, Discussion Response to Teaching: Reinforcement Needed OT [employer] Goals [employer] Goals Time Frame: Jun 27, 2021 Eating (QC): 6 Oral Hygiene (QC): 5 Toileting Hygiene (QC): 6 Shower/Bathe Self (QC): 4 Upper Body Dressing (QC): 5 Lower Body Dressing (QC): 4 On/Off Footwear (QC): 5 1=Demonstrate adherence to instructed precautions during ADL tasks. 2=Patient will verbalize/demonstrate understanding of assistive devices/modifications for ADL. 3=Patient will improve strength/tolerance for activity to enable patient to perform ADL's. OT Education/Plan Problem List/Assessment Assessment: Decreased Activ Tolerance, Decreased Safety Aware, Decreased UE Strength, Impaired Cognition, Impaired Funct Balance, Impaired Self-Care Skills, Restricted Funct UE ROM Discharge Recommendations Plan/Recommendations: Continue POC Therapy Discharge Recommendati: Post Acute OT (ongoing assessment) Treatment Plan/Plan of Care Treatment,Training & Education: Yes Patient would benefit from OT for education, treatment and training to promote independence in ADL's, mobility, safety and/or upper extremity function for ADL's. Plan of Care: ADL Retraining, Cognitive Retraining, Functional Mobility, Group Exercise/Act as Ind, UE Funct Exercise/Act Treatment Duration: Jun 27, 2021 Frequency: 3 times per week (3-5x/week) Estimated Hrs Per Day: .25 hour per day Agreement: Yes Rehab Potential: Fair Time/GCodes Start Time: 13:20 Stop Time: 13:30 Total Time Billed (hr/min): 10 Billed Treatment Time 1 visit Tennille Jacobs OT Jun 11, 2021 14:11
[2021-06-11] MEDS: ENOXAPARIN 40 MG/0.4 ML (LOVENOX) SYR SC SCH (14:12)
--- NOTE | 2021-06-11 17:37 | Progress Note - Cardiology ---
Cardiology SOAP Progress Note Subjective: Abd discomfort post surgery No cp or palp or syncope No n/v Gen malaise and weakness Objective: I&O/Vital Signs 06/11/21 06/11/21 06/11/21 06/11/21 06:00 07:00 07:00 07:36 Temp 36.2 Pulse 73 81 72 Resp 27 B/P (MAP) 119/78 (92) 115/76 (89) Pulse Ox 94 94 O2 Delivery High Flow N/C High Flow N/C O2 Flow Rate 2.00 2.00 06/11/21 06/11/21 06/11/21 06/11/21 08:00 08:00 09:00 10:00 Pulse 71 74 78 Resp 25 27 25 B/P (MAP) 122/80 (94) 109/80 (90) 122/84 (97) Pulse Ox 94 93 93 O2 Delivery Non Rebreather High Flow N/C High Flow N/C High Flow N/C O2 Flow Rate 15.00 2.00 2.00 2.00 06/11/21 06/11/21 06/11/21 06/11/21 11:00 11:05 12:00 12:00 Temp 36.7 Pulse 81 78 Resp 29 26 B/P (MAP) 123/81 (95) 118/83 (95) Pulse Ox 94 95 O2 Delivery High Flow N/C High Flow N/C Non Rebreather O2 Flow Rate 2.00 2.00 15.00 06/11/21 06/11/21 06/11/21 06/11/21 13:00 13:12 14:00 16:00 Pulse 86 79 78 Resp 26 15 B/P (MAP) 122/85 (97) 109/75 (86) Pulse Ox 92 94 O2 Delivery High Flow N/C High Flow N/C Non Rebreather O2 Flow Rate 2.00 2.00 15.00 06/11/21 16:04 Temp 36.0 06/10/21 23:59 Intake Total 2300 ml Output Total 820 ml Balance 1480 ml Constitutional: AAO x 3, well-developed, well-nourished Respiratory: No accessory muscle use, No respiratory distress; chest expansion is symmetric, chest is bilaterally symmetric, rhonchi (scattered; prolonged exp phase) Cardiovascular: irregularly irregular; No JVD; S1 and S2 Gastrointestional: other (post-op abdomen - drsg D&I) Genital/Rectal: other (urinary catheter in place to DD) Extremities: no lower extremity edema bilateral Neurologic/Psychiatric: other (moves all extremities) Skin: warm/dry, other (incisions intact, dry; slight shadowing on lower edge of main abdominal incision) Results/Procedures: Labs Laboratory Tests 06/11/21 04:36: White Blood Count 28.0H, Red Blood Count 4.50, Hemoglobin 10.0L, Hematocrit 34L, Mean Corpuscular Volume 76L, Mean Corpuscular Hemoglobin 22L, Mean Corpuscular Hemoglobin Concent 29L, Red Cell Distribution Width 17.0H, Platelet Count 329, Mean Platelet Volume 9.0, Immature Granulocyte % (Auto) 1, Neutrophils (%) (Auto) 93H, Lymphocytes (%) (Auto) 3L, Monocytes (%) (Auto) 3, Eosinophils (%) (Auto) 0, Basophils (%) (Auto) 0, Neutrophils # (Auto) 26.1H, Lymphocytes # (Auto) 0.8L, Monocytes # (Auto) 0.9, Eosinophils # (Auto) 0.0, Basophils # (Auto) 0.1, Immature Granulocyte # (Auto) 0.2H, Sodium Level 131L, Potassium Level 5.2H, Chloride Level 96L, Carbon Dioxide Level 22, Anion Gap 13, Blood Ur ea Nitrogen 16, Creatinine 1.16, Estimat Glomerular Filtration Rate 69, BUN/Creatinine Ratio 14, Glucose Level 210H, Calcium Level 9.7, Phosphorus Level 5.1H, Magnesium Level 2.1 Microbiology 06/10/21 MRSA Screen - Final, Complete MRSA not isolated 06/09/21 Blood Culture - Preliminary, Resulted No growth Laboratory Tests 06/10/21 05:51 06/10/21 14:32 06/11/21 04:36 A/P: Assessment: Post colon resection with primary anastomosis, washout abdomen with placement drain on 06-10-[address] Salcedo Chronic a-fib - HR improved on Cardizem gtt - followed by Dr. Vasquez at [facility] - maintained on Eliquis 5mg BID and Cartia 120mg daily Echocardiogram of 07-15-[address] Vasquez at [facility] showed LVEF 55%. Mod dilated RV. PASP 70-75 mmHg Pulmonary HTN - followed by Dr. Moss at [facility] Plan: Continue Cardizem gtt for rate control Advise resumption of OAC as soon as allowed by surgical services for stroke prevention Monitor lab closely CARLOS PAGAN MD FACP [facility] Jun 11, 2021 17:37
--- NOTE | 2021-06-11 19:04 | Physician Query Clarification ---
Physician Query-General Query to Physician: The medical record reflects the following clinical scenario: The patient, in the setting of History/Risk factors, Colon resection 05/06 with post op abscess with foul smelling drainage, discovery of anastomotic Leak/dehiscence, fevers at home SMASH HAND Clinical Findings Admission VS/Labs: HR 103, RR 20, BP 96/71, SpO2 93% sat on room air T 36.8, WBC 17, Abdominal abscess, Treatment 2L Lactated Ringers in first 24 hours, Cipro IV, Metronidazole IV, Urgent Surgical repair of Leak Question: Do you agree with the impression of Sepsis present on admission per Dr. Juliana Braden? 1. Yes; will document sepsis present on admission in the setting of anastomotic Leak/dehiscence in the Progress Notes 2. No; will continue current documentation in the Progress Notes 3. Other; will document explanation of clinical findings 4. Clinically undetermined; no explanation for clinical findings Please clarify and document your clinical opinion in the Progress Notes and Discharge Summary including the definitive and/or presumptive diagnosis, (suspected or probable), related to the above clinical findings. Please include clinical findings supporting your diagnosis. In responding to this query, please exercise your independent professional judgment. The purpose of this communication is to more accurately reflect the complexity of your patients condition. The fact that a question is asked does not imply that any particular answer is desired or expected. Please remember a lack of response to the above will prompt a phone page by CDI/coding staff Thank you for timely response to this clarification. Janet Haywood MSN, RN Clinical Washing And Screening Plant Supervisor [phone] [email or web address] PHYSICIAN RESPONSE: Based on the clinical findings in the record, please respond to the query above on this document as an addendum. Physician Response: 1 Physician Response Yes pt met sepsis criteria per the [facility]'s note. If you have questions please contact: Fortune Teller: Ext: Thank you for your time and cooperation. Clinical Washing And Screening Plant Supervisor/Fortune Teller This is a permanent part of the medical record JANET HAYWOOD Jun 11, 2021 19:04 NAOMI HODGE DO Jun 23, 2021 16:02
--- NOTE | 2021-06-11 19:23 | Physician Query Clarification ---
Physician Query-General Query to Physician: The medical record reflects the following clinical scenario: The patient, in the setting of History/Risk factors, At. Fib with RVR, Abdominal abscess, abdominal surgery Clinical Findings RR consistently 25 to 33 for greater than 24 hours, Nursing documentation of SOB at rest, for greater than 24 hours, requiring up to 15 L 02 after 02 had been weaned off following surgery - predominately 2 to 6L, Treatment Supplemental 02, ICU monitoring, Cough and deep breathing/breathing exercises, Question: Do you agree with the impression of Acute Hypoxic Respiratory Failure per Dr. Juliana Braden? 1. Yes; will document Acute hypoxic Respiratory failure in the Progress Notes 2. No; will continue current documentation in the Progress Notes 3. Other; will document explanation of clinical findings 4. Clinically undetermined; no explanation for clinical findings Please clarify and document your clinical opinion in the Progress Notes and Dis charge Summary including the definitive and/or presumptive diagnosis, (suspected or probable), related to the above clinical findings. Please include clinical findings supporting your diagnosis. In responding to this query, please exercise your independent professional judgment. The purpose of this communication is to more accurately reflect the complexity of your patients condition. The fact that a question is asked does not imply that any particular answer is desired or expected. Please remember a lack of response to the above will prompt a phone page by CDI/coding staff Thank you for timely response to this clarification. Janet Elmore Clinical Curing Press Maintainer [phone] [email or web address] PHYSICIAN RESPONSE: Based on the clinical findings in the record, please respond to the query above on this document as an addendum. Physician Response: Physician Response Yes I agree with Dr. Arthur If you have questions please contact: Water Plumber: Ext: Thank you for your time and cooperation. Clinical Curing Press Maintainer/Water Plumber This is a permanent part of the medical record JANET ELMORE Jun 11, 2021 19:23 NAOMI HODGE DO Jun 23, 2021 16:03
[2021-06-11] MEDS: DOCUSATE SODIUM 100 MG (COLACE) CAP PO SCH (20:01)
[2021-06-12] VITALS (22 sets, daily range): BP systolic 101–126; BP diastolic 67–98
[2021-06-12 04:52] LABS: BASOPHILS % (AUTO) 0 % (0-10); EOSINOPHILS % (AUTO) 0 % (0-10); HEMATOCRIT 30 % (40-54); HEMOGLOBIN 8.9 g/dL (13.3-17.7); LYMPHOCYTES % (AUTO) 3 % (12-44); MEAN CORPUSCULAR HEMOGLOBIN 22 pg (25-34); MEAN CORPUSCULAR HGB CONC 29 g/dL (32-36); MEAN CORPUSCULAR VOLUME 76 fL (80-99); MEAN PLATELET VOLUME 9.1 fL (9.0-12.2); MONOCYTES # (AUTO) 1.5 10^3/uL (0.0-1.0); MONOCYTES % (AUTO) 5 % (0-12); NEUTROPHILS # (AUTO) 26.3 10^3/uL (1.8-7.8); NEUTROPHILS % (AUTO) 91 % (42-75); PLATELET COUNT 336 10^3/uL (130-400); WHITE BLOOD COUNT 29.1 10^3/uL (4.3-11.0)
[2021-06-12 05:05] LABS: CALCIUM 9.9 MG/DL (8.5-10.1)
[2021-06-12 05:10] LABS: CREATININE SERUM 0.97 MG/DL (0.60-1.30)
[2021-06-12 05:12] LABS: MAGNESIUM 2.2 MG/DL (1.6-2.4)
[2021-06-12] MEDS: LACTATED RINGERS 1,000 ML IV SCH ×2 (05:19→11:37)
[2021-06-12] MEDS: fentaNYL INJ 100 MCG/2 ML AMP IVP PRN ×4 (05:19→21:02)
[2021-06-12] MEDS: metroNIDAZOLE 500MG/100ML IVPB 100 ML IV SCH ×3 (05:19→21:02)
[2021-06-12] MEDS: ACETAMINOPHEN 500 MG TAB (TYLENOL) PO SCH ×3 (05:20→21:01)
[2021-06-12] MEDS: POTASSIUM CL 10MEQ/50ML IVPB 50 ML IV SCH (06:34)
[2021-06-12] MEDS: MAGNESIUM 1 GM/100 ML IVPB 100 ML IV SCH (06:34)
[2021-06-12] MEDS: KCL 20 MEQ TAB (K-DUR) PO SCH (06:35)
--- NOTE | 2021-06-12 06:56 | Progress Note - Surgery ---
ALEK TYSON 06/12/21 0656: Subjective Date Seen by a Provider: Jun 12, 2021 Time Seen by a Provider: 06:25 Subjective/Events-last exam Pt appears to be feeling better today. He states his pain is controlled. Currently 5/10 concentrated in his RLQ. Had a coughing fit from phlegm overnight that raised it to 7/10. Received two doses of fentanyl overnight. His drain had minimal bright red blood/mucous in it. Has had no gas or bm. Tolerating CLD. Urine output has improved (189 mL/hr). Review of Systems General: No Chills; Fatigue HEENT: No Head Aches, No Visual Changes Pulmonary: No Dyspnea; Cough Cardiovascular: No: Chest Pain, Palpitations Gastrointestinal: Abdominal Pain; No: Nausea, Vomiting Genitourinary: No Dysuria; Other (output improved) Musculoskeletal: No: neck pain, leg pain Neurological: No: Weakness, Change in speech Focused Exam Respiratory: No Accessory Muscle Use, No Respiratory Distress, Wheezing Cardiovascular: No Murmur, Irregularly Irregular Peripheral Pulses: 2+ Radial Pulses (R), 2+ Radial Pulses (L) Skin: normal color, warm/dry, other (minimal drainage on incision dressing) Objective Exam Vital Signs Date Time Temp Pulse Resp B/P (MAP) Pulse Ox O2 Delivery O2 Flow Rate FiO2 06/12/21 06:00 87 20 112/78 (89) 97 High Flow N/C 2.00 06/12/21 05:00 75 19 110/67 (81) 96 High Flow N/C 2.00 06/12/21 04:00 81 20 123/79 (94) 97 High Flow N/C 2.00 06/12/21 04:00 High Flow N/C 2.00 06/12/21 03:00 71 19 109/73 (85) 97 High Flow N/C 2.00 06/12/21 02:00 75 21 123/75 (91) 97 High Flow N/C 2.00 06/12/21 01:00 72 06/12/21 01:00 72 22 114/73 (87) 97 High Flow N/C 2.00 06/12/21 00:50 Nasal Cannula 06/12/21 00:00 79 22 121/84 (96) 96 High Flow N/C 2.00 06/12/21 00:00 High Flow N/C 2.00 06/11/21 23:06 36.4 06/11/21 23:00 80 28 130/89 (103) 96 High Flow N/C 2.00 06/11/21 22:00 75 26 124/92 (103) 96 High Flow N/C 2.00 06/11/21 21:00 86 28 124/92 (103) 96 High Flow N/C 2.00 06/11/21 20:00 High Flow N/C 2.00 06/11/21 20:00 75 28 121/91 (101) 97 High Flow N/C 2.00 06/11/21 19:20 36.2 06/11/21 19:00 77 27 126/84 (98) 96 High Flow N/C 2.00 06/11/21 19:00 77 06/11/21 18:11 92 34 126/90 (102) 96 High Flow N/C 2.00 06/11/21 17:00 96 24 113/86 (95) 96 High Flow N/C 2.00 06/11/21 16:04 36.0 06/11/21 16:00 86 26 114/83 (93) 95 High Flow N/C 2.00 06/11/21 16:00 Non Rebreather 15.00 06/11/21 15:00 78 22 122/77 (92) 95 High Flow N/C 2.00 06/11/21 14:00 78 15 109/75 (86) 94 High Flow N/C 2.00 06/11/21 13:12 79 06/11/21 13:00 86 26 122/85 (97) 92 High Flow N/C 2.00 06/11/21 12:00 Non Rebreather 15.00 06/11/21 12:00 78 26 118/83 (95) 95 High Flow N/C 2.00 06/11/21 11:05 36.7 06/11/21 11:00 81 29 123/81 (95) 94 High Flow N/C 2.00 06/11/21 10:00 78 25 122/84 (97) 93 High Flow N/C 2.00 06/11/21 09:00 74 27 109/80 (90) 93 High Flow N/C 2.00 06/11/21 08:00 71 25 122/80 (94) 94 High Flow N/C 2.00 06/11/21 08:00 Non Rebreather 15.00 06/11/21 07:36 36.2 06/11/21 07:00 72 06/11/21 07:00 81 27 115/76 (89) 94 High Flow N/C 2.00 I & O 06/12/21 07:00 Intake Total 4065 ml Output Total 2310 ml Balance 1755 ml Capillary Refill : General Appearance: No Apparent Distress, Obese HEENT: PERRL/EOMI; No Photophobia Neck: Normal Inspection, Supple Respiratory: No Accessory Muscle Use, No Respiratory Distress, Crackles, Wheezing Cardiovascular: No Murmur, Irregularly Irregular Peripheral Pulses: 2+ Radial Pulses (R), 2+ Radial Pulses (L) Gastrointestinal: soft, tenderness (incisional; around drain; RLQ), other (Dr bradley in LUQ has minimal drainage sero-sanguinous (mostly darker blood)) Extremity: Normal Inspection, Pedal Edema (improving) Neurologic/Psychiatric: Alert, Oriented x3, Normal Mood/Affect Skin: Warm/Dry, Other (minimal drainage on incision dressing; chronic dark discoloration bilat shins) Results Lab Laboratory Tests 06/12/21 04:15: White Blood Count 29.1H, Red Blood Count 4.00L, Hemoglobin 8.9L, Hematocrit 30L, Mean Corpuscular Volume 76L, Mean Corpuscular Hemoglobin 22L, Mean Corpuscular Hemoglobin Concent 29L, Red Cell Distribution Width 17.0H, Platelet Count 336, Mean Platelet Volume 9.1, Immature Granulocyte % (Auto) 1, Neutrophils (%) (Auto) 91H, Lymphocytes (%) (Auto) 3L, Monocytes (%) (Auto) 5, Eosinophils (%) (Auto) 0, Basophils (%) (Auto) 0, Neutrophils # (Auto) 26.3H, Lymphocytes # (Auto) 1.0, Monocytes # (Auto) 1.5H, Eosinophils # (Auto) 0.0, Basophils # (Auto) 0.0, Immature Granulocyte # (Auto) 0.3H, Sodium Level 129L, Potassium Level 5.0, Chloride Level 95L, Carbon Dioxide Level 25, Anion Gap 9, Blood Urea Nitrogen 15, Creatinine 0.97, Estimat Glomerular Filtration Rate 85, BUN/Creatinine Ratio 15, Glucose Level 160H, Calcium Level 9.9, Magnesium Level 2.2 Microbiology 06/10/21 MRSA Screen - Final, Complete MRSA not isolated 06/09/21 Blood Culture - Preliminary, Resulted No growth Assessment/Plan Assessment/Plan Assessment/Plan Resection and primary anastomosis on 05/06 and 06/[address] LUQ Chronic Atrial Fibrillation, episode VTach HTN CXR 06/10-- per radiology, R mid and lower lung ruiz have patchy infiltrate EKG 06/10-- AFib, ventricular premature complex, aberrant complex possibly supraventricular, nonspecific intraventricular conduction delay, borderline ST depression in anterior leads, considering posterior infarct Hgb dropped 8.9 from 10.0 WBC- inc 29.1 from 28 Restarted Lovenox IV fluids Pain management Benadryl if nausea returns Continue Met/Cipro CLD Continue PT/OT Incentive Spirometer use encouraged Consider repeat CXR if wheezing does not improve Monitor labs and vitals Consider moving to 4th floor JOSE HODGE DO 06/12/21 1354: Subjective Time Seen by a Provider: 09:21 Subjective/Events-last exam Pt seen and examined, states he is doing better today. He refused to allow the kimble removal yesterday and also was refusing to participate in PT. Review of Systems General: No Chills; Fatigue HEENT: No Head Aches, No Visual Changes Pulmonary: No Dyspnea; Cough Cardiovascular: No: Chest Pain, Palpitations Gastrointestinal: Abdominal Pain; No: Nausea, Vomiting Objective Exam General Appearance: No Apparent Distress, Obese Respiratory: No Accessory Muscle Use, No Respiratory Distress, Crackles, Wheezing Cardiovascular: No Murmur, Irregularly Irregular Gastrointestinal: soft, tenderness (incisional; around drain; RLQ), other (Drain in LUQ has minimal drainage sero-sanguinous (mostly darker blood)) Assessment/Plan Assessment/Plan Assessment/Plan Colon Resection and primary anastomosis on 05/06 and 06/10 - secondary to Colon CA and then anastomotic breakdown Chronic Atrial Fibrillation, episode VTach HTN Anemia - chronic with some probably due to blood loss after surgery Restarted Lovenox, IV fluids, Pain management, Benadryl if nausea returns, Continue Met/Cipro Pt told he has to work with PT/OT and we may even move him to swing bed to get extra rehab in the hospital Incentive Spirometer use and ambulation encouraged, plus I told him we are taking out the kimble...I don't want him to get a UTI. Pt was told he must move or he won't get better....asked his to please encourage him to do these things. Will leave on clears until he has better bowel function. Consider moving to 4th floor, but will leave up to Cardiology. Supervisory-Addendum Brief Verification & Attestation Participated in pt care: history, MDM, physical Personally performed: exam, history, MDM, supervision of care Care discussed with: Medical Student Procedures: n/a Verification and Attestation of Medical Student E/M Service A medical student performed and documented this service. I then reviewed and verified all information documented by the medical student and made modifications to such information, when appropriate. I personally performed a physical exam, medical decision making and then discussed any differences between the notes and made revisions as necessary to create one note. Jose Hodge , 06/12/21 , 13:54 ALEK TYSON Jun 12, 2021 06:56 JOSE HODGE DO Jun 12, 2021 13:54
--- NOTE | 2021-06-12 08:06 | Physical Therapy Progress Note ---
Therapy Progress Note Patient refused therapy services this morning. Patient reports that he believes he doesn't need to get up out of the bed and doesn't want to sit in the chair. Patient was educated on healing benefits of sitting in the chair throughout the day. 1, Ref CATHERINE VACA PT Jun 12, 2021 08:06
[2021-06-12] MEDS: GABAPENTIN 600 MG (NEURONTIN) TAB PO SCH ×2 (09:17→21:01)
[2021-06-12] MEDS: DOCUSATE SODIUM 100 MG (COLACE) CAP PO SCH ×2 (09:22→21:00)
[2021-06-12] MEDS: CIPROFLOXACIN IV 400MG/200ML 200 ML IV SCH (11:37)
--- NOTE | 2021-06-12 11:38 | Occupational Ther Daily Note ---
OT Current Status-Daily Note Subjective Pt denies pain, appears more alert this date. Appearance Pt left sitting in recliner, RN in the room at OT departure. Mental Status/Objective Attachments: Kimble Catheter, IV, Oxygen, Telemetry ADL-Treatment Therapy Code Descriptions/Definitions Functional [place] Measure: 0=Not Assessed/NA 4=Minimal Assistance 1=Total Assistance 5=Supervision or Setup 2=Maximal Assistance 6=Modified [place] 3=Moderate Assistance 7=Complete IndependenceSCALE: Activities may be completed with or without assistive devices. 8-[id number]-aevjlwr completes the activity by him/herself with no assistance from a helper. 5-Set-up or Clean-up Assistance-helper sets up or cleans up; patient completes activity. [place] assists only prior to or following the activity. 4-Supervision or Touching Assistance-helper provides verbal cues and/or touching/steadying and/or contact guard assistance as patient completes acti vity. Assistance may be provided throughout the activity or intermittently. 3-Partial/Moderate Assistance-helper does LESS THAN HALF the effort. [place] lifts, holds or supports trunk or limbs, but provides less than half the effort. 2-Substantial/Maximal Assistance-helper does MORE THAN HALF the effort. [place] lifts or holds trunk or limbs and provides more than half the effort. 2-Szzonmtwx-avcdzb does ALL the effort. Patient does none of the effort to complete the activity. Or, the assistance of 2 or more helpers is required for the patient to complete the activity. If activity was not attempted, code reason: 7-Patient Refused. 9-Not Applicable-not attempted and the patient did not perform the activity before the current illness, exacerbation or injury. 10-Not Attempted due to Environmental Limitations-(lack of equipment, weather restraints, etc.). 88-Not Attempted due to Medical Conditions or Safety Concerns. On/Off Footwear: 3 Toilet Transfer (QC): 1 (kimble catheter) Pt resting in bed at OT arrival. Initially pt refusing therapy. Encouragement from both OT and RN provided. Refuses all ADLs. Pt reluctantly agreeable to sit in chair. Able to sit EOB with min a to elevate torso and extra time to bring LE 's off edge of bed. Sit<>stand: 2 attempts with mod a for initial boost. Once standing, CGA required for balance. Pt able to take 3-4 steps over to recliner with min a and walker. 2nd person present for safety and management of multiple lines. Education on increasing sitting upright throughout day. Reinforcement will be needed. Education OT Patient Education: Correct positioning, Progress toward Goal/Update tx plan, Purpose of tx/functional activities, Safety issues, Transfer techniques Teaching Recipient: Patient Teaching Methods: Discussion Response to Teaching: Verbalize Understanding, Return Demonstration, Reinforcement Needed OT Wire Brush Maker Goals Halfway Goals Time Frame: Jun 27, 2021 Eating (QC): 6 Oral Hygiene (QC): 5 Toileting Hygiene (QC): 6 Shower/Bathe Self (QC): 4 Upper Body Dressing (QC): 5 Lower Body Dressing (QC): 4 On/Off Footwear (QC): 5 1=Demonstrate adherence to instructed precautions during ADL tasks. 2=Patient will verbalize/demonstrate understanding of assistive devices/modifications for ADL. 3=Patient will improve strength/tolerance for activity to enable patient to pe rform ADL's. OT Education/Plan Problem List/Assessment Assessment: Decreased Activ Tolerance, Decreased Safety Aware, Impaired Cognition, Impaired Funct Balance, Impaired Self-Care Skills Discharge Recommendations Plan/Recommendations: Continue POC Treatment Plan/Plan of Care Treatment,Training & Education: Yes Patient would benefit from OT for education, treatment and training to promote independence in ADL's, mobility, safety and/or upper extremity function for ADL's. Plan of Care: ADL Retraining, Cognitive Retraining, Functional Mobility, Group Exercise/Act as Ind, UE Funct Exercise/Act Treatment Duration: Jun 27, 2021 Frequency: 3 times per week (3-5x/week) Estimated Hrs Per Day: .25 hour per day Agreement: Yes Rehab Potential: Fair Time/GCodes Start Time: 11:16 Stop Time: 11:28 Total Time Billed (hr/min): 12 Billed Treatment Time 1 visit Tennille Noel OT Jun 12, 2021 11:38
--- NOTE | 2021-06-12 11:58 | Tele-ICU Progress Note ---
Subjective Date Seen by a Provider: Jun 12, 2021 Time Seen by a Provider: 11:53 Subjective/Events-last exam Patient today feeling somewhat better however he continues to have a mild to moderate abdominal pain. He had a coughing fit last night. No fever present. He is getting as needed fentanyl IV pushes for pain control. He did not move his bowels. He has no flatus yet. His atrial fibrillation is controlled he is currently on a Cardizem drip Sepsis Event Evaluation Height, Weight, BMI Height: '" Weight: lbs. oz. kg; 36.16 BMI Method: Exam Exam Patient acknowledged, consented, and participated in this virtual visit which was conducted using real time audio/video Vital Signs Date Time Temp Pulse Resp B/P (MAP) Pulse Ox O2 Delivery O2 Flow Rate FiO2 06/12/21 11:00 68 25 112/98 (103) 95 High Flow N/C 2.00 06/12/21 10:00 79 22 102/70 (81) 92 High Flow N/C 2.00 06/12/21 09:00 75 21 116/79 (91) 98 High Flow N/C 2.00 06/12/21 08:00 76 19 108/72 (84) 98 High Flow N/C 2.00 06/12/21 07:29 35.7 06/12/21 07:00 78 06/12/21 07:00 95 17 115/74 (88) 96 High Flow N/C 2.00 06/12/21 06:00 87 20 112/78 (89) 97 High Flow N/C 2.00 06/12/21 05:00 75 19 110/67 (81) 96 High Flow N/C 2.00 06/12/21 04:00 81 20 123/79 (94) 97 High Flow N/C 2.00 06/12/21 04:00 High Flow N/C 2.00 06/12/21 03:00 71 19 109/73 (85) 97 High Flow N/C 2.00 06/12/21 02:00 75 21 123/75 (91) 97 High Flow N/C 2.00 06/12/21 01:00 72 06/12/21 01:00 72 22 114/73 (87) 97 High Flow N/C 2.00 06/12/21 00:50 Nasal Cannula 06/12/21 00:00 79 22 121/84 (96) 96 High Flow N/C 2.00 06/12/21 00:00 High Flow N/C 2.00 06/11/21 23:06 36.4 06/11/21 23:00 80 28 130/89 (103) 96 High Flow N/C 2.00 06/11/21 22:00 75 26 124/92 (103) 96 High Flow N/C 2.00 06/11/21 21:00 86 28 124/92 (103) 96 High Flow N/C 2.00 06/11/21 20:00 High Flow N/C 2.00 06/11/21 20:00 75 28 121/91 (101) 97 High Flow N/C 2.00 06/11/21 19:20 36.2 06/11/21 19:00 77 27 126/84 (98) 96 High Flow N/C 2.00 06/11/21 19:00 77 06/11/21 18:11 92 34 126/90 (102) 96 High Flow N/C 2.00 06/11/21 17:00 96 24 113/86 (95) 96 High Flow N/C 2.00 06/11/21 16:04 36.0 06/11/21 16:00 86 26 114/83 (93) 95 High Flow N/C 2.00 06/11/21 16:00 Non Rebreather 15.00 06/11/21 15:00 78 22 122/77 (92) 95 High Flow N/C 2.00 06/11/21 14:00 78 15 109/75 (86) 94 High Flow N/C 2.00 06/11/21 13:12 79 06/11/21 13:00 86 26 122/85 (97) 92 High Flow N/C 2.00 06/11/21 12:00 Non Rebreather 15.00 06/11/21 12:00 78 26 118/83 (95) 95 High Flow N/C 2.00 I & O 06/12/21 07:00 Intake Total 4065 ml Output Total 2310 ml Balance 1755 ml Height & Weight Height: '" Weight: lbs. oz. kg; 36.16 BMI Method: General Appearance: No Apparent Distress, Obese HEENT: PERRL/EOMI; No Photophobia Neck: Normal Inspection, Supple Respiratory: No Accessory Muscle Use, No Respiratory Distress, Crackles, Wheezing Cardiovascular: No Murmur, Irregularly Irregular Peripheral Pulses: 2+ Radial Pulses (R), 2+ Radial Pulses (L) Gastrointestinal: soft, tenderness (incisional; around drain; RLQ), other (Drain in LUQ has minimal drainage sero-sanguinous (mostly darker blood)) Extremity: Normal Inspection, Pedal Edema (improving) Neurologic/Psychiatric: Alert, Oriented x3, Normal Mood/Affect Skin: Warm/Dry, Other (minimal drainage on incision dressing; chronic dark discoloration bilat shins) Other comments PE PER RN Results Lab Laboratory Tests 06/10/21 14:32 06/11/21 04:36 06/12/21 04:15 Assessment/Plan Assessment/Plan 1. Anastomotic leak of previously done colon resection 05/06/2021. 2. Status post redo colon resection and anastomosis. 3. History of hypertension currently stable 4. History of atrial fibrillation cardiology on the case. Recommendations 1. Continue IV antibiotics per primary care 2. Perioperative surgical management per general surgery 3. DVT prophylaxis and ulcer prophylaxis 4. Continue monitor hemoglobin and a BMP. 5. Video visit made and discussed with the patient and EXTRACT PULLERfood service counter clerk: Critically Ill Patient Time spent with patient (mins): 20 RODRICK SPICER MD Jun 12, 2021 11:57
[2021-06-12] MEDS: ENOXAPARIN 40 MG/0.4 ML (LOVENOX) SYR SC SCH (15:06)
[2021-06-12] MEDS ORDERED: dilTIAZem120 MG (CARDIZEM CD) CAP PO ONE (15:15)
--- NOTE | 2021-06-12 16:53 | Progress Note - Cardiology ---
Cardiology SOAP Progress Note Subjective: No cp or palp or syncope or shortness of breath at rest No n/v/d Gen malaise and weakness present Objective: I&O/Vital Signs 06/12/21 06/12/21 06/12/21 06/12/21 05:00 06:00 07:00 07:00 Pulse 75 87 95 78 Resp 19 20 17 B/P (MAP) 110/67 (81) 112/78 (89) 115/74 (88) Pulse Ox 96 97 96 O2 Delivery High Flow N/C High Flow N/C High Flow N/C O2 Flow Rate 2.00 2.00 2.00 06/12/21 06/12/21 06/12/21 06/12/21 07:29 08:00 08:30 09:00 Temp 35.7 Pulse 76 75 Resp 19 21 B/P (MAP) 108/72 (84) 116/79 (91) Pulse Ox 98 98 O2 Delivery High Flow N/C High Flow N/C High Flow N/C O2 Flow Rate 2.00 2.00 2.00 06/12/21 06/12/21 06/12/21 06/12/21 10:00 11:00 12:00 12:45 Pulse 79 68 71 Resp 22 25 20 B/P (MAP) 102/70 (81) 112/98 (103) 104/71 (82) Pulse Ox 92 95 96 O2 Delivery High Flow N/C High Flow N/C High Flow N/C High Flow N/C O2 Flow Rate 2.00 2.00 2.00 1.00 06/12/21 06/12/21 06/12/21 06/12/21 13:00 13:00 14:00 15:00 Pulse 78 78 75 76 Resp 23 26 19 B/P (MAP) 102/68 (79) 106/70 (82) 112/69 (83) Pulse Ox 98 94 96 O2 Delivery High Flow N/C High Flow N/C High Flow N/C O2 Flow Rate 2.00 2.00 2.00 06/12/21 06/12/21 06/12/21 06/12/21 15:16 15:48 16:00 16:19 Temp 35.6 Pulse 74 Resp 24 B/P (MAP) 118/80 (93) Pulse Ox 95 O2 Delivery Nasal Cannula High Flow N/C High Flow N/C O2 Flow Rate 2.00 2.00 1.00 06/11/21 23:59 Intake Total 3465 ml Output Total 835 ml Balance 2630 ml Constitutional: AAO x 3, well-developed, well-nourished Respiratory: No accessory muscle use, No respiratory distress; chest expansion is symmetric, chest is bilaterally symmetric, rhonchi (scattered; prolonged exp phase) Cardiovascular: irregularly irregular; No JVD; S1 and S2 Gastrointestional: other (post-op abdomen - drsg D&I) Genital/Rectal: other (urinary catheter in place to DD) Extremities: no lower extremity edema bilateral Neurologic/Psychiatric: other (moves all extremities) Skin: normal color, warm/dry, other (minimal drainage on incision dressing) Results/Procedures: Labs Laboratory Tests 06/12/21 04:15: White Blood Count 29.1H, Red Blood Count 4.00L, Hemoglobin 8.9L, Hematocrit 30L, Mean Corpuscular Volume 76L, Mean Corpuscular Hemoglobin 22L, Mean Corpuscular Hemoglobin Concent 29L, Red Cell Distribution Width 17.0H, Platelet Count 336, Mean Platelet Volume 9.1, Immature Granulocyte % (Auto) 1, Neutrophils (%) (Auto) 91H, Lymphocytes (%) (Auto) 3L, Monocytes (%) (Auto) 5, Eosinophils (%) (Auto) 0, Basophils (%) (Auto) 0, Neutrophils # (Auto) 26.3H, Lymphocytes # (Auto) 1.0, Monocytes # (Auto) 1.5H, Eosinophils # (Auto) 0.0, Basophils # (Auto) 0.0, Immature Granulocyte # (Auto) 0.3H, Sodium Level 129L, Potassium Level 5.0, Chloride Level 95L, Carbon Dioxide Level 25, Anion Gap 9, Blood Urea Nitrogen 15, Creatinine 0.97, Estimat Glomerular Filtration Rate 85, BUN/Creatinine Ratio 15, Glucose Level 160H, Calcium Level 9.9, Magnesium Level 2.2 Microbiology 06/10/21 MRSA Screen - Final, Complete MRSA not isolated 06/09/21 Blood Culture - Preliminary, Resulted No growth Laboratory Tests 06/11/21 04:36 06/12/21 04:15 A/P: Assessment: Post colon resection with primary anastomosis, washout abdomen with placement drain on 06-10-[address] Salcedo Chronic a-fib - HR improved on Cardizem gtt - followed by Dr. Vasquez at [facility] - maintained on Eliquis 5mg BID and Cartia 120mg daily Echocardiogram of 07-15-[address] Vasquez at [facility] showed LVEF 55%. Mod dilated RV. PASP 70-75 mmHg Pulmonary HTN - followed by Dr. Moss at [facility] Plan: Change iv dilt to oral Advise resumption of OAC as soon as allowed by surgical services for stroke prevention Monitor lab closely CARLOS PAGAN MD FACP FAC CCDS Jun 12, 2021 16:53
[2021-06-13] VITALS (16 sets, daily range): BP systolic 98–134; BP diastolic 58–98
[2021-06-13] MEDS: CIPROFLOXACIN IV 400MG/200ML 200 ML IV SCH ×2 (00:05→11:34)
[2021-06-13] MEDS: LACTATED RINGERS 1,000 ML IV SCH ×4 (00:06→21:01)
[2021-06-13] MEDS: fentaNYL INJ 100 MCG/2 ML AMP IVP PRN ×2 (01:28→22:21)
[2021-06-13 04:57] LABS: BASOPHILS % (AUTO) 0 % (0-10); EOSINOPHILS % (AUTO) 0 % (0-10); HEMATOCRIT 31 % (40-54); HEMOGLOBIN 8.8 g/dL (13.3-17.7); LYMPHOCYTES # (AUTO) 1.5 10^3/uL (1.0-4.0); LYMPHOCYTES % (AUTO) 6 % (12-44); MEAN CORPUSCULAR HEMOGLOBIN 22 pg (25-34); MEAN CORPUSCULAR HGB CONC 29 g/dL (32-36); MEAN CORPUSCULAR VOLUME 78 fL (80-99); MONOCYTES # (AUTO) 1.5 10^3/uL (0.0-1.0); MONOCYTES % (AUTO) 6 % (0-12); NEUTROPHILS # (AUTO) 20.5 10^3/uL (1.8-7.8); NEUTROPHILS % (AUTO) 86 % (42-75); PLATELET COUNT 336 10^3/uL (130-400)
[2021-06-13 05:10] LABS: POTASSIUM 4.7 MMOL/L (3.6-5.0)
[2021-06-13 05:11] LABS: CALCIUM 9.8 MG/DL (8.5-10.1)
[2021-06-13 05:16] LABS: CREATININE SERUM 0.97 MG/DL (0.60-1.30)
[2021-06-13 05:18] LABS: MAGNESIUM 2.1 MG/DL (1.6-2.4)
[2021-06-13] MEDS: KCL 20 MEQ TAB (K-DUR) PO SCH (06:29)
[2021-06-13] MEDS: ACETAMINOPHEN 500 MG TAB (TYLENOL) PO SCH ×3 (06:29→20:57)
[2021-06-13] MEDS: MAGNESIUM 1 GM/100 ML IVPB 100 ML IV SCH (06:29)
[2021-06-13] MEDS: metroNIDAZOLE 500MG/100ML IVPB 100 ML IV SCH ×3 (06:29→21:02)
[2021-06-13] MEDS: POTASSIUM CL 10MEQ/50ML IVPB 50 ML IV SCH (06:29)
--- NOTE | 2021-06-13 06:37 | Progress Note - Surgery ---
ALEK TYSON 06/13/21 0637: Subjective Date Seen by a Provider: Jun 13, 2021 Time Seen by a Provider: 06:20 Subjective/Events-last exam Pt is in no pain this morning. He passed gas about 10x and said he could feel his stomach "deflate." He also reports urinating 4x after catheter removal with minimal burning. He is on a CLD and had an intake total of 1850mL including medications. His drain contained minimal red blood and mucous, with 80mL collected so far today. Pt reports sitting up in his chair for a few hours yesterday. He denies CP, SOB, palpitations, and fever at this time. Review of Systems General: No Chills; Fatigue HEENT: No Head Aches, No Visual Changes Pulmonary: No Dyspnea; Cough Cardiovascular: No: Chest Pain, Palpitations Gastrointestinal: No: Nausea, Vomiting, Abdominal Pain Genitourinary: Dysuria (slight burning urination, attributes it to catheter removal), Frequency Musculoskeletal: No: neck pain, leg pain Neurological: No: Weakness, Change in speech Focused Exam Respiratory: No Accessory Muscle Use, No Respiratory Distress, Wheezing Cardiovascular: No Murmur, Irregularly Irregular Peripheral Pulses: 2+ Radial Pulses (R), 2+ Radial Pulses (L) Skin: other (incision clean, dry, and intact; slight dried blood on dressing) Objective Exam Vital Signs Date Time Temp Pulse Resp B/P (MAP) Pulse Ox O2 Delivery O2 Flow Rate FiO2 06/13/21 06:00 86 21 130/86 (101) 97 High Flow N/C 2.00 06/13/21 05:00 98 24 132/93 (106) 97 High Flow N/C 2.00 06/13/21 04:00 76 19 114/71 (85) 98 High Flow N/C 2.00 06/13/21 03:00 87 18 118/80 (93) 97 High Flow N/C 2.00 06/13/21 02:00 79 19 122/80 (94) 97 High Flow N/C 2.00 06/13/21 01:00 81 20 111/73 (86) 97 High Flow N/C 2.00 06/13/21 01:00 87 06/13/21 00:00 High Flow N/C 1.00 06/13/21 00:00 74 20 112/73 (86) 98 High Flow N/C 2.00 06/12/21 23:00 74 21 114/76 (89) 98 High Flow N/C 2.00 06/12/21 22:00 77 22 97 High Flow N/C 2.00 06/12/21 21:00 80 23 97 High Flow N/C 2.00 06/12/21 20:00 84 22 117/72 (87) 97 High Flow N/C 2.00 06/12/21 20:00 High Flow N/C 1.00 06/12/21 19:16 36.1 06/12/21 19:00 74 06/12/21 19:00 82 25 126/69 (88) 95 High Flow N/C 2.00 06/12/21 18:00 73 24 101/71 (81) 97 High Flow N/C 2.00 06/12/21 17:00 73 24 109/77 (88) 95 High Flow N/C 2.00 06/12/21 16:19 High Flow N/C 1.00 06/12/21 16:00 74 24 118/80 (93) 95 High Flow N/C 2.00 06/12/21 15:48 35.6 06/12/21 15:16 Nasal Cannula 2.00 06/12/21 15:00 76 19 112/69 (83) 96 High Flow N/C 2.00 06/12/21 14:00 75 26 106/70 (82) 94 High Flow N/C 2.00 06/12/21 13:00 78 06/12/21 13:00 78 23 102/68 (79) 98 High Flow N/C 2.00 06/12/21 12:45 High Flow N/C 1.00 06/12/21 12:00 71 20 104/71 (82) 96 High Flow N/C 2.00 06/12/21 11:00 68 25 112/98 (103) 95 High Flow N/C 2.00 06/12/21 10:00 79 22 102/70 (81) 92 High Flow N/C 2.00 06/12/21 09:00 75 21 116/79 (91) 98 High Flow N/C 2.00 06/12/21 08:30 High Flow N/C 2.00 06/12/21 08:00 76 19 108/72 (84) 98 High Flow N/C 2.00 06/12/21 07:29 35.7 06/12/21 07:00 78 06/12/21 07:00 95 17 115/74 (88) 96 High Flow N/C 2.00 I & O 06/13/21 07:00 Intake Total 1450 ml Output Total 905 ml Balance 545 ml Capillary Refill : General Appearance: No Apparent Distress, Obese Respiratory: No Accessory Muscle Use, No Respiratory Distress, Crackles, Wheezing Cardiovascular: No Murmur, Irregularly Irregular Peripheral Pulses: 2+ Radial Pulses (R), 2+ Radial Pulses (L) Gastrointestinal: soft, tenderness (incisional; around drain), other (Drain in LUQ has minimal drainage sero-sanguinous (mostly darker blood)) Extremity: Normal Inspection, Pedal Edema Neurologic/Psychiatric: Alert, Oriented x3, Normal Mood/Affect Skin: Warm/Dry, Other (minimal drainage on incision dressing; chronic dark discoloration bilat shins) Results Lab Laboratory Tests 06/13/21 04:38: White Blood Count 24.0H, Red Blood Count 3.92L, Hemoglobin 8.8L, Hematocrit 31L, Mean Corpuscular Volume 78L, Mean Corpuscular Hemoglobin 22L, Mean Corpuscular Hemoglobin Concent 29L, Red Cell Distribution Width 17.2H, Platelet Count 336, Mean Platelet Volume 9.0, Immature Granulocyte % (Auto) 2, Neutrophils (%) (Auto) 86H, Lymphocytes (%) (Auto) 6L, Monocytes (%) (Auto) 6, Eosinophils (%) (Auto) 0, Basophils (%) (Auto) 0, Neutrophils # (Auto) 20.5H, Lymphocytes # (Auto) 1.5, Monocytes # (Auto) 1.5H, Eosinophils # (Auto) 0.0, Basophils # (Auto) 0.0, Immature Granulocyte # (Auto) 0.4H, Sodium Level 131L, Potassium Level 4.7, Chloride Level 95L, Carbon Dioxide Level 25, Anion Gap 11, Blood Urea Nitrogen 12, Creatinine 0.97, Estimat Glomerular Filtration Rate 85, BUN/Creatinine Ratio 12, Glucose Level 127H, Calcium Level 9.8, Magnesium Level 2.1 Microbiology 06/10/21 MRSA Screen - Final, Complete MRSA not isolated 06/09/21 Blood Culture - Preliminary, Resulted No growth Assessment/Plan Assessment/Plan Assessment/Plan Colon Resection and primary anastomosis on 05/06 and 06/10 - secondary to Colon CA and then anastomotic breakdown Chronic Atrial Fibrillation, episode VTach HTN Anemia - chronic with some probably due to blood loss after surgery Order in for an EKG yesterday, report not found On lovenox 40 IV diltiazem was switched to oral Pt refused PT yesterday, reluctantly agreed to OT, but states he sat up in his chair for a few hours Encourage IS and ambulation IVFs Pain management Continue Cipro/Met Consider moving to 4th floor if cardiology in agreement JOSE SALCEDO DO 06/13/21 1349: Subjective Time Seen by a Provider: 10:47 Subjective/Events-last exam Pt seen and examined, doing much better today. States he feels better and is in better spirits. Tolerating clears and wants to get down to 4th floor. Review of Systems General: Fatigue Pulmonary: No Dyspnea; Cough Cardiovascular: No: Chest Pain, Palpitations Gastrointestinal: Abdominal Pain (very minimal); No: Nausea, Vomiting Objective Exam General Appearance: No Apparent Distress, Obese Respiratory: No Accessory Muscle Use, No Respiratory Distress, Crackles, Wheezing Cardiovascular: No Murmur, Irregularly Irregular Gastrointestinal: soft, tenderness (incisional; around drain), other (Drain in LUQ has minimal drainage sero-sanguinous ) Assessment/Plan Assessment/Plan Assessment/Plan Colon Resection and primary anastomosis on 05/06 and 06/10 - secondary to Colon CA and then anastomotic breakdown Chronic Atrial Fibrillation, episode VTach HTN Anemia - chronic with some probably due to blood loss after surgery Encourage IS and ambulation, continue IV fluids, Pain management, Continue Cipro/Met OK to move to 4th floor if cardiology in agreement and start soft diet Supervisory-Addendum Brief Verification & Attestation Participated in pt care: history, MDM, physical Personally performed: exam, history, MDM, supervision of care Care discussed with: Medical Student Procedures: n/a Verification and Attestation of Medical Student E/M Service A medical student performed and documented this service. I then reviewed and verified all information documented by the medical student and made modifications to such information, when appropriate. I personally performed a physical exam, medical decision making and then discussed any differences between the notes and made revisions as necessary to create one note. Jose Salcedo , 06/13/21 , 13:49 ALEK TYSON Jun 13, 2021 06:37 JOSE SALCEDO DO Jun 13, 2021 13:49
[2021-06-13] MEDS: dilTIAZem120 MG (CARDIZEM CD) CAP PO SCH (08:17)
[2021-06-13] MEDS: DOCUSATE SODIUM 100 MG (COLACE) CAP PO SCH ×2 (08:17→20:57)
[2021-06-13] MEDS: GABAPENTIN 600 MG (NEURONTIN) TAB PO SCH ×2 (08:18→20:57)
--- NOTE | 2021-06-13 11:15 | Physical Therapy Progress Note ---
Therapy Progress Note Patient refused treatment at this time as he is talking with his son. Asked to come back later. Will attempt to see patient again as time permits or on next scheduled PT treatment date. Nurse reports patient will be transferred to 4th floor. SARA FRANCOIS PT Jun 13, 2021 11:15
[2021-06-13] MEDS: ENOXAPARIN 40 MG/0.4 ML (LOVENOX) SYR SC SCH (15:50)
--- NOTE | 2021-06-13 17:34 | Progress Note - Cardiology ---
Cardiology SOAP Progress Note Subjective: No cp or palp or syncope No shortness of breath No n/v Gen weakness and malaise present Objective: I&O/Vital Signs 06/13/21 06/13/21 06/13/21 06/13/21 06:00 07:00 07:00 07:21 Temp 35.8 Pulse 86 86 93 Resp 21 20 B/P (MAP) 130/86 (101) 131/77 (95) Pulse Ox 97 98 O2 Delivery High Flow N/C High Flow N/C O2 Flow Rate 2.00 2.00 06/13/21 06/13/21 06/13/21 06/13/21 08:00 08:00 08:40 09:00 Pulse 80 89 Resp 19 16 B/P (MAP) 123/81 (95) 134/85 (101) Pulse Ox 97 98 97 95 O2 Delivery Nasal Cannula High Flow N/C Nasal Cannula High Flow N/C O2 Flow Rate 2.00 2.00 2.00 2.00 06/13/21 06/13/21 06/13/21 06/13/21 10:00 11:00 12:00 12:00 Pulse 128 83 75 Resp 26 26 18 B/P (MAP) 98/83 (88) 117/83 (94) 127/98 (108) Pulse Ox 99 91 97 99 O2 Delivery High Flow N/C High Flow N/C Nasal Cannula High Flow N/C O2 Flow Rate 2.00 2.00 2.00 2.00 06/13/21 06/13/21 06/13/21 12:31 13:30 15:36 Temp 36.2 36.5 Pulse 68 91 87 Resp 20 19 B/P (MAP) 111/70 (84) 109/58 (75) Pulse Ox 95 97 O2 Delivery Nasal Cannula Nasal Cannula O2 Flow Rate 2.00 2.00 06/13/21 00:00 Intake Total 1250 ml Output Total 745 ml Balance 505 ml Constitutional: AAO x 3, well-developed, well-nourished Respiratory: No accessory muscle use, No respiratory distress; chest expansion is symmetric, chest is bilaterally symmetric, rhonchi (scattered; prolonged exp phase) Cardiovascular: irregularly irregular; No JVD; S1 and S2 Gastrointestional: other (post-op abdomen - drsg D&I) Genital/Rectal: other (urinary catheter in place to DD) Extremities: no lower extremity edema bilateral Neurologic/Psychiatric: other (moves all extremities) Skin: other (incision clean, dry, and intact; slight dried blood on dressing) Results/Procedures: Labs Laboratory Tests 06/13/21 04:38: White Blood Count 24.0H, Red Blood Count 3.92L, Hemoglobin 8.8L, Hematocrit 31L, Mean Corpuscular Volume 78L, Mean Corpuscular Hemoglobin 22L, Mean Corpuscular Hemoglobin Concent 29L, Red Cell Distribution Width 17.2H, Platelet Count 336, Mean Platelet Volume 9.0, Immature Granulocyte % (Auto) 2, Neutrophils (%) (Auto) 86H, Lymphocytes (%) (Auto) 6L, Monocytes (%) (Auto) 6, Eosinophils (%) (Auto) 0, Basophils (%) (Auto) 0, Neutrophils # (Auto) 20.5H, Lymphocytes # (Auto) 1.5, Monocytes # (Auto) 1.5H, Eosinophils # (Auto) 0.0, Basophils # (Auto) 0.0, Immature Granulocyte # (Auto) 0.4H, Sodium Level 131L, Potassium Level 4.7, Chloride Level 95L, Carbon Dioxide Level 25, Anion Gap 11, Blood Urea Nitrogen 12, Creatinine 0.97, Estimat Glomerular Filtration Rate 85, BUN /Creatinine Ratio 12, Glucose Level 127H, Calcium Level 9.8, Magnesium Level 2.1 Microbiology 06/10/21 MRSA Screen - Final, Complete MRSA not isolated 06/09/21 Blood Culture - Preliminary, Resulted No growth Laboratory Tests 06/12/21 04:15 06/13/21 04:38 A/P: Assessment: Post colon resection with primary anastomosis, washout abdomen with placement drain on 06-10-[address] Salcedo Chronic a-fib - HR improved on Cardizem gtt - followed by Dr. Vasquez at [facility] - maintained on Eliquis 5mg BID and Cartia 120mg daily Echocardiogram of 07-15-[address] Vasquez at [facility] showed LVEF 55%. Mod dilated RV. PASP 70-75 mmHg Pulmonary HTN - followed by Dr. Moss at [facility] Plan: Continue dilt Advise resumption of OAC as soon as allowed by surgical services for stroke prevention Monitor lab closely CARLOS PAGAN MD [facility] Jun 13, 2021 17:34
--- NOTE | 2021-06-13 19:49 | Progress Note - Hospitalist ---
Subjective HPI/CC On Admission Date Seen by Provider: Jun 13, 2021 Time Seen by Provider: 09:40 Jasen Theodore is a 70 year old male with PMH HTN, AFib, colon cancer s/p resection, who presented with anastomotic leak. He underwent resection of colon mass on 05/06. He was later found to have an anastomotic leak with possible abscess and was scheduled for surgery. The hospitalist service has been consulted for medical comanagement. Upon my exam, he is in the ICU post-op. He denies abdominal pain. He denies shortness of breath. He has not been able to eat or drink anything yet. He has no other complaints or concerns. Subjective/Events-last exam He is feeling better. He has been passing gas. He has not had any bowel movements yet. He has been tolerating his diet. He denies pain. He denies shortness of breath. Objective Exam Vital Signs Vital Signs Date Time Temp Pulse Resp B/P (MAP) Pulse Ox O2 Delivery O2 Flow Rate FiO2 06/13/21 15:36 36.5 87 19 109/58 (75) 97 Nasal Cannula 2.00 Capillary Refill : General Appearance: No Apparent Distress, Obese Respiratory: Lungs Clear, No Respiratory Distress Cardiovascular: Regular Rate, Rhythm, No Murmur Gastrointestinal: Normal Bowel Sounds, Soft Extremity: Normal Inspection, Non Tender Neurologic/Psychiatric: Alert, Normal Mood/Affect Skin: Normal Color, Warm/Dry Results/Procedures Lab Laboratory Tests 06/13/21 04:38 Patient resulted labs reviewed. Imaging: Reviewed Imaging Report Assessment/Plan Assessment and Plan Assess & Plan/Chief Complaint Colon cancer s/p partial colectomy Anastomotic leak Surgery primary s/p original colon resection 05/06 s/p repeat colon resection due to anastomotic dehiscence 3/2 Continue Cipro and Flagyl IV fluids PT/OT Transfer to 4th floor today HTN AFib Cardiology following Resume Eliquis when ok with surgery DVT prophylaxis: Lovenox Diagnosis/Problems Diagnosis/Problems (1) Anastomotic leak of intestine Status: Acute (2) HTN (hypertension) Status: Chronic (3) Afib Status: Chronic AMANDA SIMMS MD Jun 13, 2021 19:49
[2021-06-14] VITALS: BP 115/73
[2021-06-14] MEDS: CIPROFLOXACIN IV 400MG/200ML 200 ML IV SCH (00:07)
[2021-06-14] MEDS: fentaNYL INJ 100 MCG/2 ML AMP IVP PRN ×2 (03:37→21:26)
[2021-06-14 04:01] VITALS: BP 102/63
[2021-06-14 05:46] LABS: BASOPHILS % (AUTO) 0 % (0-10); EOSINOPHILS # (AUTO) 0.1 10^3/uL (0.0-0.3); EOSINOPHILS % (AUTO) 1 % (0-10); HEMATOCRIT 32 % (40-54); LYMPHOCYTES # (AUTO) 1.6 10^3/uL (1.0-4.0); LYMPHOCYTES % (AUTO) 8 % (12-44); MEAN CORPUSCULAR HEMOGLOBIN 22 pg (25-34); MEAN CORPUSCULAR HGB CONC 29 g/dL (32-36); MEAN CORPUSCULAR VOLUME 78 fL (80-99); MEAN PLATELET VOLUME 8.9 fL (9.0-12.2); MONOCYTES # (AUTO) 1.1 10^3/uL (0.0-1.0); MONOCYTES % (AUTO) 6 % (0-12); NEUTROPHILS # (AUTO) 15.8 10^3/uL (1.8-7.8); NEUTROPHILS % (AUTO) 83 % (42-75); PLATELET COUNT 328 10^3/uL (130-400); WHITE BLOOD COUNT 18.9 10^3/uL (4.3-11.0)
[2021-06-14 06:08] LABS: POTASSIUM 4.2 MMOL/L (3.6-5.0)
[2021-06-14 06:09] LABS: CALCIUM 9.4 MG/DL (8.5-10.1)
[2021-06-14 06:13] LABS: CREATININE SERUM 0.85 MG/DL (0.60-1.30)
[2021-06-14 06:15] LABS: MAGNESIUM 2.1 MG/DL (1.6-2.4)
[2021-06-14] MEDS: ACETAMINOPHEN 500 MG TAB (TYLENOL) PO SCH ×3 (06:54→21:18)
[2021-06-14] MEDS: metroNIDAZOLE 500MG/100ML IVPB 100 ML IV SCH (06:54)
[2021-06-14] MEDS: DOCUSATE SODIUM 100 MG (COLACE) CAP PO SCH ×2 (07:53→21:18)
[2021-06-14] MEDS: GABAPENTIN 600 MG (NEURONTIN) TAB PO SCH ×2 (07:54→21:17)
[2021-06-14] MEDS: dilTIAZem120 MG (CARDIZEM CD) CAP PO SCH (07:55)
[2021-06-14 08:13] VITALS: BP 113/65
--- NOTE | 2021-06-14 09:33 | Progress Note - Surgery ---
ALEK TYSON 06/14/21 0933: Subjective Date Seen by a Provider: Jun 14, 2021 Time Seen by a Provider: 09:15 Subjective/Events-last exam Pt sitting up in his chair this morning. Ate his soft food diet (8-10 bites oatmeal, half of the scrambled eggs). Says he is burping quite a bit. Is still passing gas but has not had a bowel movement. Drain has minimal red blood in it (40mL this morning). He reports some incisional pain with movement, as well as intermittent LLQ pain (5/10). He also reports that the injection site for his blood thinner tends to be itchy. Pt refused physical therapy again yesterday. The importance of ambulation postop was stressed to him. His urine output was low yesterday (300mL total). When asked about it, patient reports he probably didn't drink as much since it hurt to get up to go to the bathroom. He reports no CP, SOB, N/V, or fever at this time. Review of Systems General: No Chills; Appetite (improved) HEENT: No Head Aches, No Dysphasia Pulmonary: No Dyspnea; Cough (phlegm) Cardiovascular: No: Chest Pain, Palpitations Gastrointestinal: Abdominal Pain; No: Nausea, Vomiting Genitourinary: No Dysuria; Frequency Musculoskeletal: No: neck pain, leg pain Neurological: No: Weakness, Change in speech Focused Exam Respiratory: No Respiratory Distress, Wheezing Cardiovascular: No Murmur, Irregularly Irregular Peripheral Pulses: 2+ Radial Pulses (R), 2+ Radial Pulses (L) Skin: normal color, warm/dry, other (incision clean, dry and intact) Objective Exam Vital Signs Date Time Temp Pulse Resp B/P (MAP) Pulse Ox O2 Delivery O2 Flow Rate FiO2 06/14/21 08:13 35.9 79 20 113/65 (81) 97 Nasal Cannula 2.00 06/14/21 08:00 97 Nasal Cannula 2.00 06/14/21 07:39 97 Nasal Cannula 2.00 06/14/21 04:01 36.1 77 19 102/63 (76) 97 Nasal Cannula 2.00 06/14/21 00:00 36.2 78 18 115/73 (87) 98 Nasal Cannula 2.00 06/13/21 20:06 97 Nasal Cannula 2.00 06/13/21 20:01 36.4 83 19 108/64 (79) 95 Nasal Cannula 2.00 06/13/21 15:36 36.5 87 19 109/58 (75) 97 Nasal Cannula 2.00 06/13/21 13:30 36.2 91 20 111/70 (84) 95 Nasal Cannula 2.00 06/13/21 12:31 68 06/13/21 12:00 75 18 127/98 (108) 99 High Flow N/C 2.00 06/13/21 12:00 97 Nasal Cannula 2.00 06/13/21 11:00 83 26 117/83 (94) 91 High Flow N/C 2.00 06/13/21 10:00 128 26 98/83 (88) 99 High Flow N/C 2.00 I & O 06/14/21 06:59 Intake Total 1230 ml Output Total 610 ml Balance 620 ml Capillary Refill : General Appearance: No Apparent Distress, Obese Respiratory: No Respiratory Distress, Wheezing Cardiovascular: No Murmur, Irregularly Irregular Peripheral Pulses: 2+ Radial Pulses (R), 2+ Radial Pulses (L) Gastrointestinal: soft, tenderness (incisional; around drain; RLQ), other (Drain in LUQ has minimal drainage sero-sanguinous ) Extremity: Pedal Edema, Other (reports leg weakness when ambulating) Neurologic/Psychiatric: Alert, Oriented x3, Normal Mood/Affect Skin: Normal Color, Warm/Dry, Other (incision clean, dry, and intact) Results Lab Laboratory Tests 06/14/21 05:32: White Blood Count 18.9H, Red Blood Count 4.04L, Hemoglobin 9.0L, Hematocrit 32L, Mean Corpuscular Volume 78L, Mean Corpuscular Hemoglobin 22L, Mean Corpuscular Hemoglobin Concent 29L, Red Cell Distribution Width 17.4H, Platelet Count 328, Mean Platelet Volume 8.9L, Immature Granulocyte % (Auto) 2, Neutrophils (%) (Auto) 83H, Lymphocytes (%) (Auto) 8L, Monocytes (%) (Auto) 6, Eosinophils (%) (Auto) 1, Basophils (%) (Auto) 0, Neutrophils # (Auto) 15.8H, Lymphocytes # (Auto) 1.6, Monocytes # (Auto) 1.1H, Eosinophils # (Auto) 0.1, Basophils # (Aut o) 0.0, Immature Granulocyte # (Auto) 0.4H, Sodium Level 132L, Potassium Level 4.2, Chloride Level 97L, Carbon Dioxide Level 27, Anion Gap 8, Blood Urea Nitrogen 10, Creatinine 0.85, Estimat Glomerular Filtration Rate 95, BUN/Creatinine Ratio 12, Glucose Level 119H, Calcium Level 9.4, Magnesium Level 2.1 Microbiology 06/10/21 MRSA Screen - Final, Complete MRSA not isolated 06/09/21 Blood Culture - Preliminary, Resulted No growth Assessment/Plan Assessment/Plan Assessment/Plan Colon Resection and primary anastomosis on 05/06 and 06/10 - secondary to Colon CA and then anastomotic breakdown Chronic Atrial Fibrillation, episode VTach HTN Anemia - chronic with some probably due to blood loss after surgery Encourage IS and ambulation Encourage fluid intake Continue IV fluids Pain management Continue Cipro/Met Continue Dys 2 diet JOSE SALCEDO DO 06/14/21 1415: Subjective Time Seen by a Provider: 13:26 Subjective/Events-last exam Pt seen, lying in bed. States he is feeling better. He also reports getting up to the bathroom and sat in chair for 2 hours. Review of Systems General: Appetite (improved) Pulmonary: No Dyspnea; Cough (phlegm) Cardiovascular: No: Chest Pain, Palpitations Gastrointestinal: Abdominal Pain; No: Nausea, Vomiting Objective Exam General Appearance: No Apparent Distress, Obese Respiratory: No Accessory Muscle Use, No Respiratory Distress, Wheezing Cardiovascular: No Murmur, Irregularly Irregular Gastrointestinal: soft, tenderness (incisional; around drain; RLQ), other (Drain in LUQ has minimal drainage sero-sanguinous ) Extremity: Pedal Edema, Other (reports leg weakness when ambulating ) Assessment/Plan Assessment/Plan Assessment/Plan Colon Resection and primary anastomosis on 05/06 and 06/10 - secondary to Colon CA and then anastomotic breakdown Chronic Atrial Fibrillation, episode VTach HTN Anemia - chronic with some probably due to blood loss after surgery Encourage IS and ambulation; pt told he HAS TO walk and work with PT Encourage fluid intake, Continue IV fluids, Pain management, Continue Cipro/Met, Continue Dys 2 diet Supervisory-Addendum Brief Verification & Attestation Participated in pt care: history, MDM, physical Personally performed: exam, history, MDM, supervision of care Care discussed with: Medical Student Procedures: n/a Verification and Attestation of Medical Student E/M Service A medical student performed and documented this service. I then reviewed and verified all information documented by the medical student and made modifications to such information, when appropriate. I personally performed a physical exam, medical decision making and then discussed any differences between the notes and made revisions as necessary to create one note. Jose Salcedo , 06/14/21 , 14:14 ALEK TYSON Jun 14, 2021 09:33 JOSE SALCEDO DO Jun 14, 2021 14:15
[2021-06-14 12:13] VITALS: BP 104/76
--- NOTE | 2021-06-14 13:26 | Progress Note - Cardiology ---
Cardiology SOAP Progress Note Subjective: No cp or palp or syncope or shortness of breath at rest No n/v/d Gen weakness and malaise present but improving Objective: I&O/Vital Signs 06/14/21 06/14/21 06/14/21 06/14/21 04:01 07:39 08:00 08:13 Temp 36.1 35.9 Pulse 77 79 Resp 19 20 B/P (MAP) 102/63 (76) 113/65 (81) Pulse Ox 97 97 97 97 O2 Delivery Nasal Cannula Nasal Cannula Nasal Cannula Nasal Cannula O2 Flow Rate 2.00 2.00 2.00 2.00 06/14/21 12:13 Temp 36.1 Pulse 89 Resp 20 B/P (MAP) 104/76 (85) Pulse Ox 93 O2 Delivery Nasal Cannula O2 Flow Rate 2.00 06/14/21 00:00 Intake Total 580 ml Output Total 10 ml Balance 570 ml Constitutional: AAO x 3, well-developed, well-nourished Respiratory: No accessory muscle use, No respiratory distress; chest expansion is symmetric, chest is bilaterally symmetric, rhonchi (scattered; prolonged exp phase) Cardiovascular: irregularly irregular; No JVD; S1 and S2 Gastrointestional: other (post-op abdomen - drsg D&I) Genital/Rectal: other (urinary catheter in place to DD) Extremities: no lower extremity edema bilateral Neurologic/Psychiatric: other (moves all extremities) Skin: normal color, warm/dry, other (incision clean, dry and intact) Results/Procedures: Labs Laboratory Tests 06/14/21 05:32: White Blood Count 18.9H, Red Blood Count 4.04L, Hemoglobin 9.0L, Hematocrit 32L, Mean Corpuscular Volume 78L, Mean Corpuscular Hemoglobin 22L, Mean Corpuscular Hemoglobin Concent 29L, Red Cell Distribution Width 17.4H, Platelet Count 328, Mean Platelet Volume 8.9L, Immature Granulocyte % (Auto) 2, Neutrophils (%) (Auto) 83H, Lymphocytes (%) (Auto) 8L, Monocytes (%) (Auto) 6, Eosinophils (%) (Auto) 1, Basophils (%) (Auto) 0, Neutrophils # (Auto) 15.8H, Lymphocytes # (Aut o) 1.6, Monocytes # (Auto) 1.1H, Eosinophils # (Auto) 0.1, Basophils # (Auto) 0.0, Immature Granulocyte # (Auto) 0.4H, Sodium Level 132L, Potassium Level 4.2, Chloride Level 97L, Carbon Dioxide Level 27, Anion Gap 8, Blood Urea Nitrogen 10, Creatinine 0.85, Estimat Glomerular Filtration Rate 95, BUN/Creatinine Ratio 12, Glucose Level 119H, Calcium Level 9.4, Magnesium Level 2.1 Microbiology 06/10/21 MRSA Screen - Final, Complete MRSA not isolated 06/09/21 Blood Culture - Preliminary, Resulted No growth A/P: Assessment: Post colon resection with primary anastomosis, washout abdomen with placement drain on 06-10-[address] Salcedo Chronic a-fib - HR improved on Cardizem gtt - followed by Dr. Vasquez at [facility] - maintained on Eliquis 5mg BID and Cartia 120mg daily Echocardiogram of 07-15-[address] Vasquez at [facility] showed LVEF 55%. Mod dilated RV. PASP 70-75 mmHg Pulmonary HTN - followed by Dr. Moss at [facility] Plan: Continue dilt Oral intake has been allowed. Resume OAC, if ok'd by Surg Monitor lab closely CARLOS PAGAN MD FACP [facility] Jun 14, 2021 13:26
[2021-06-14] MEDS: LACTATED RINGERS 1,000 ML IV SCH (13:28)
[2021-06-14 15:20] VITALS: BP 108/63
--- NOTE | 2021-06-14 16:18 | Progress Note - Hospitalist ---
Subjective HPI/CC On Admission Date Seen by Provider: Jun 14, 2021 Time Seen by Provider: 10:25 Jasen Theodore is a 70 year old male with PMH HTN, AFib, colon cancer s/p resection, who presented with anastomotic leak. He underwent resection of colon mass on 05/06. He was later found to have an anastomotic leak with possible abscess and was scheduled for surgery. The hospitalist service has been consulted for medical comanagement. Upon my exam, he is in the ICU post-op. He denies abdominal pain. He denies shortness of breath. He has not been able to eat or drink anything yet. He has no other complaints or concerns. Subjective/Events-last exam He is doing well this morning. He is sleepy. He has been up in his chair this morning. He has been passing gas. He has not had a bowel movement, but feels like one is coming today. His pain is well controlled. Objective Exam Vital Signs Vital Signs Date Time Temp Pulse Resp B/P (MAP) Pulse Ox O2 Delivery O2 Flow Rate FiO2 06/14/21 15:20 36.2 84 22 108/63 (78) 98 Nasal Cannula 2.00 Capillary Refill : General Appearance: No Apparent Distress, Obese Respiratory: Lungs Clear, No Respiratory Distress Cardiovascular: Regular Rate, Rhythm, No Murmur Gastrointestinal: Normal Bowel Sounds, Soft Extremity: Normal Inspection, No Pedal Edema Neurologic/Psychiatric: Alert, Normal Mood/Affect Skin: Normal Color, Warm/Dry Results/Procedures Lab Laboratory Tests 06/14/21 05:32 Patient resulted labs reviewed. Imaging: Reviewed Imaging Report Assessment/Plan Assessment and Plan Assess & Plan/Chief Complaint Colon cancer s/p partial colectomy Anastomotic leak Surgery primary s/p original colon resection 05/06 s/p repeat colon resection due to anastomotic dehiscence 06/10 Completed Cipro and Flagyl IV fluids PT/OT Ambulate HTN AFib Cardiology following Restarting Eliquis this evening DVT prophylaxis: already receiving therapeutic anticoagulation Diagnosis/Problems Diagnosis/Problems (1) Anastomotic leak of intestine Status: Acute (2) HTN (hypertension) Status: Chronic (3) Afib Status: Chronic AMANDA SIMMS MD Jun 14, 2021 16:18
[2021-06-14 19:20] VITALS: BP 101/70
[2021-06-14] MEDS ORDERED: APIXABAN 5 MG (ELIQUIS) TABLET PO SCH (21:00)
[2021-06-15] VITALS (7 sets, daily range): BP systolic 113–144; BP diastolic 65–82
[2021-06-15] MEDS: LACTATED RINGERS 1,000 ML IV SCH ×2 (01:24→02:09)
[2021-06-15] MEDS: fentaNYL INJ 100 MCG/2 ML AMP IVP PRN (02:51)
[2021-06-15] MEDS: ACETAMINOPHEN 500 MG TAB (TYLENOL) PO SCH ×3 (05:06→23:08)
--- NOTE | 2021-06-15 05:52 | Progress Note - Surgery ---
ALEK TYSON 06/15/21 0552: Subjective Date Seen by a Provider: Jun 15, 2021 Time Seen by a Provider: 05:35 Subjective/Events-last exam Pt reports feeling ok today. States he is in no pain. Has not passed a bowel movement, but is still passing gas. Ate mashed potatoes and drank milk last night for dinner. States the food is settling ok; he is not nauseous but is burping more than usual. His drain produced 70mL total yesterday. The contents this morning are still red blood and mucous. The pt stated he had been up walking a bit. He denies CP, SOB, palpitations, and fever at this time. Review of Systems General: No Chills; Fatigue HEENT: No Head Aches, No Visual Changes Pulmonary: No Dyspnea, No Cough Cardiovascular: No: Chest Pain, Palpitations Gastrointestinal: No: Nausea, Vomiting, Abdominal Pain Genitourinary: No Dysuria, No Frequency Musculoskeletal: No: neck pain, back pain, leg pain Neurological: No: Weakness, Change in speech Focused Exam Respiratory: No Respiratory Distress, Wheezing Cardiovascular: No Murmur, Irregularly Irregular Peripheral Pulses: 2+ Radial Pulses (R), 2+ Radial Pulses (L) Skin: normal color, warm/dry, other (incision clean, dry and intact) Objective Exam Vital Signs Date Time Temp Pulse Resp B/P (MAP) Pulse Ox O2 Delivery O2 Flow Rate FiO2 06/15/21 04:00 35.9 88 18 125/77 (93) 98 Nasal Cannula 2.00 06/15/21 00:01 36.5 100 18 125/65 (85) 97 Nasal Cannula 2.00 06/14/21 21:41 94 Room Air 06/14/21 19:20 36.2 86 19 101/70 (80) 94 Nasal Cannula 2.00 06/14/21 15:20 36.2 84 22 108/63 (78) 98 Nasal Cannula 2.00 06/14/21 12:13 36.1 89 20 104/76 (85) 93 Nasal Cannula 2.00 06/14/21 08:13 35.9 79 20 113/65 (81) 97 Nasal Cannula 2.00 06/14/21 08:00 97 Nasal Cannula 2.00 06/14/21 07:39 97 Nasal Cannula 2.00 I & O 06/15/21 07:00 Intake Total 1990 ml Output Total 605 ml Balance 1385 ml Capillary Refill : General Appearance: No Apparent Distress, Obese Respiratory: No Respiratory Distress, Wheezing Cardiovascular: No Murmur, Irregularly Irregular Peripheral Pulses: 2+ Radial Pulses (R), 2+ Radial Pulses (L) Gastrointestinal: soft, tenderness (incisional; around drain; RLQ), other (Drain in LUQ has minimal drainage sero-sanguinous ) Extremity: Normal Inspection, Pedal Edema Neurologic/Psychiatric: Alert, Oriented x3, Normal Mood/Affect Skin: Normal Color, Warm/Dry, Other (incision clean, dry and intact) Results Lab Microbiology 06/10/21 MRSA Screen - Final, Complete MRSA not isolated 06/09/21 Blood Culture - Final, Complete No growth Assessment/Plan Assessment/Plan Assessment/Plan Colon Resection and primary anastomosis on 05/06 and 06/10 - secondary to Colon CA and then anastomotic breakdown Chronic Atrial Fibrillation, episode VTach HTN Anemia - chronic with some probably due to blood loss after surgery Encourage IS and ambulation Continue IV fluids Pain management Continue Cipro/Met Continue Dys 2 diet JOSE SALCEDO DO 06/16/21 1146: Subjective Time Seen by a Provider: 14:36 Subjective/Events-last exam Pt seen and examined, states he is improving. Review of Systems General: No Chills; Fatigue Pulmonary: No Dyspnea, No Cough Cardiovascular: No: Chest Pain, Palpitations Gastrointestinal: No: Nausea, Vomiting, Abdominal Pain Objective Exam General Appearance: No Apparent Distress, Obese Respiratory: No Respiratory Distress, Wheezing Cardiovascular: No Murmur, Irregularly Irregular Gastrointestinal: soft; No distended; tenderness (incisional; around drain; RLQ), other (Drain in LUQ has minimal drainage sero-sanguinous ) Assessment/Plan Assessment/Plan Assessment/Plan Colon Resection and primary anastomosis on 05/06 and 06/10 - secondary to Colon CA and then anastomotic breakdown Chronic Atrial Fibrillation, episode VTach HTN Anemia - chronic with some probably due to blood loss after surgery Encourage IS and ambulation Continue IV fluids Pain management Continue Cipro/Met Continue Dys 2 diet Supervisory-Addendum Brief Verification & Attestation Participated in pt care: history, MDM, physical Personally performed: exam, history, MDM, supervision of care Care discussed with: Medical Student Procedures: n/a Verification and Attestation of Medical Student E/M Service A medical student performed and documented this service. I then reviewed and verified all information documented by the medical student and made modifications to such information, when appropriate. I personally performed a physical exam, medical decision making and then discussed any differences between the notes and made revisions as necessary to create one note. Jose Salcedo , 06/16/21 , 11:46 ALEK TYSON Jun 15, 2021 05:52 JOSE SALCEDO DO Jun 16, 2021 11:46
[2021-06-15 06:04] LABS: BASOPHILS % (AUTO) 0 % (0-10); EOSINOPHILS # (AUTO) 0.2 10^3/uL (0.0-0.3); EOSINOPHILS % (AUTO) 1 % (0-10); HEMATOCRIT 31 % (40-54); HEMOGLOBIN 8.8 g/dL (13.3-17.7); LYMPHOCYTES # (AUTO) 1.5 10^3/uL (1.0-4.0); LYMPHOCYTES % (AUTO) 9 % (12-44); MEAN CORPUSCULAR HEMOGLOBIN 22 pg (25-34); MEAN CORPUSCULAR HGB CONC 28 g/dL (32-36); MEAN CORPUSCULAR VOLUME 78 fL (80-99); MEAN PLATELET VOLUME 8.9 fL (9.0-12.2); MONOCYTES # (AUTO) 1.1 10^3/uL (0.0-1.0); MONOCYTES % (AUTO) 6 % (0-12); NEUTROPHILS # (AUTO) 14.2 10^3/uL (1.8-7.8); NEUTROPHILS % (AUTO) 81 % (42-75); PLATELET COUNT 320 10^3/uL (130-400); WHITE BLOOD COUNT 17.5 10^3/uL (4.3-11.0)
[2021-06-15 06:08] LABS: POTASSIUM 4.4 MMOL/L (3.6-5.0)
[2021-06-15 06:13] LABS: CREATININE SERUM 0.75 MG/DL (0.60-1.30)
[2021-06-15 06:15] LABS: MAGNESIUM 2.1 MG/DL (1.6-2.4)
--- NOTE | 2021-06-15 08:43 | Progress Note - Cardiology ---
Cardiology SOAP Progress Note Objective: I&O/Vital Signs 06/15/21 06/15/21 06/15/21 06/15/21 07:26 08:00 10:54 11:42 Temp 36.4 36.6 Pulse 86 92 Resp 18 18 B/P (MAP) 144/71 (95) 120/82 (95) Pulse Ox 88 92 92 O2 Delivery Nasal Cannula Room Air Nasal Cannula Nasal Cannula O2 Flow Rate 2.00 2.00 2.00 06/15/21 00:00 Intake Total 1890 ml Output Total 605 ml Balance 1285 ml Constitutional: AAO x 3, well-developed, well-nourished Respiratory: No accessory muscle use, No respiratory distress; chest expansion is symmetric, chest is bilaterally symmetric, rhonchi (scattered; prolonged exp phase) Cardiovascular: irregularly irregular; No JVD; S1 and S2 Gastrointestional: other (post-op abdomen - drsg D&I) Genital/Rectal: other (urinary catheter in place to DD) Extremities: no lower extremity edema bilateral Neurologic/Psychiatric: other (moves all extremities) Skin: normal color, warm/dry, other (incision clean, dry and intact) Results/Procedures: Labs Laboratory Tests 06/15/21 05:16: White Blood Count 17.5H, Red Blood Count 4.00L, Hemoglobin 8.8L, Hematocrit 31L, Mean Corpuscular Volume 78L, Mean Corpuscular Hemoglobin 22L, Mean Corpuscular Hemoglobin Concent 28L, Red Cell Distribution Width 17.8H, Platelet Count 320, Mean Platelet Volume 8.9L, Immature Granulocyte % (Auto) 3, Neutrophils (%) (Auto) 81H, Lymphocytes (%) (Auto) 9L, Monocytes (%) (Auto) 6, Eosinophils (%) (Auto) 1, Basophils (%) (Auto) 0, Neutrophils # (Auto) 14.2H, Lymphocytes # (Auto) 1.5, Monocytes # (Auto) 1.1H, Eosinophils # (Auto) 0.2, Basophils # (Auto) 0.0, Immature Granulocyte # (Auto) 0.5H, Sodium Level 133L, Potassium Level 4.4, Chloride Level 98, Carbon Dioxide Level 27, Anion Gap 8, Blood Urea Nitrogen 8, Creatinine 0.75, Estimat Glomerular Filtration Rate 98, BUN/Creatinine Ratio 11, Glucose Level 98, Calcium Level 9.0, Magnesium Level 2.1 Microbiology 06/10/21 MRSA Screen - Final, Complete MRSA not isolated 06/09/21 Blood Culture - Final, Complete No growth A/P: Assessment: Post colon resection with primary anastomosis, washout abdomen with placement drain on 06-10-[address] Salcedo Chronic a-fib - HR improved on Cardizem gtt - followed by Dr. Vasquez at [facility] - maintained on Eliquis 5mg BID - currently being held Echocardiogram of 07-15-[address] Vasquez at [facility] showed LVEF 55%. Mod dilated RV. PASP 70-75 mmHg Pulmonary HTN - followed by Dr. Moss at [facility] Plan: Continue current regimen Oral intake has been allowed. Resume OAC, if ok'd by Surg Monitor lab closely CRISPIN NELSON Jun 15, 2021 08:43
--- NOTE | 2021-06-15 10:31 | Occupational Ther Daily Note ---
OT Current Status-Daily Note Subjective Pt alert, lying in bed. Pt stated that he had just gotten back into bed 20 min prior to OT arriving in room. Pt declined any OOB tasks. Pt declined any ADLs stating that he has help with this at home. Attempted to discuss lower body dressing equipment that will allow pt to complete tasks by self, pt adamantly declined. Pt stated that he was not interested having OT work with ADLs. Did agree to B UE HEP. Mental Status/Objective Patient Orientation: Person, Place, Time, Situation ADL-Treatment Therapy Code Descriptions/Definitions Functional [place] Measure: 0=Not Assessed/NA 4=Minimal Assistance 1=Total Assistance 5=Supervision or Setup 2=Maximal Assistance 6=Modified [place] 3=Moderate Assistance 7=Complete IndependenceSCALE: Activities may be completed with or without assistive devices. 4-Gewemdrmwp-vcuzlem completes the activity by him/herself with no assistance from a helper. 5-Set-up or Clean-up Assistance-helper sets up or cleans up; patient completes activity. [place] assists only prior to or following the activity. 4-Supervision or Touching Assistance-helper provides verbal cues and/or touching/steadying and/or contact guard assistance as patient completes activity. Assistance may be provided throughout the activity or intermittently. 3-Partial/Moderate Assistance-helper does LESS THAN HALF the effort. [place] lifts, holds or supports trunk or limbs, but provides less than half the effort. 2-Substantial/Maximal Assistance-helper does MORE THAN HALF the effort. [place] lifts or holds trunk or limbs and provides more than half the effort. 9-Hysqifsug-adgqtk does ALL the effort. Patient does none of the effort to complete the activity. Or, the assistance of 2 or more helpers is required for the patient to complete the activity. If activity was not attempted, code reason: 7-Patient Refused. 9-Not Applicable-not attempted and the patient did not perform the activity before the current illness, exacerbation or injury. 10-Not Attempted due to Environmental Limitations-(lack of equipment, weather restraints, etc.). 88-Not Attempted due to Medical Conditions or Safety Concerns. Other Treatment Per OT eval, pt is WFL for B UE strength. Will introduce pt to theraband UE exercise HEP. Pt was able to complete 3 B UE exercises against gravity 2 sets 10 reps without difficulty-front punches, horizontal shldr abd/add, shldr abd/add. After session, pt lying in bed with call light/phone in reach. All needs met in room. OT Intermediate Goals Intermediate Goals Time Frame: Jun 27, 2021 Eating (QC): 6 Oral Hygiene (QC): 5 Toileting Hygiene (QC): 6 Shower/Bathe Self (QC): 4 Upper Body Dressing (QC): 5 Lower Body Dressing (QC): 4 On/Off Footwear (QC): 5 1=Demonstrate adherence to instructed precautions during ADL tasks. 2=Patient will verbalize/demonstrate understanding of assistive devices/modifications for ADL. 3=Patient will improve strength/tolerance for activity to enable patient to perform ADL's. OT Education/Plan Problem List/Assessment Assessment: Decreased Activ Tolerance, Decreased UE Strength, Impaired Self- Care Skills Discharge Recommendations Plan/Recommendations: Continue POC Treatment Plan/Plan of Care Patient would benefit from OT for education, treatment and training to promote independence in ADL's, mobility, safety and/or upper extremity function for ADL's. Plan of Care: ADL Retraining, Cognitive Retraining, Functional Mobility, Group Exercise/Act as Ind, UE Funct Exercise/Act Treatment Duration: Jun 27, 2021 Frequency: 3 times per week (3-5x/week) Estimated Hrs Per Day: .25 hour per day Agreement: Yes Rehab Potential: Fair Time/GCodes Start Time: 09:40 Stop Time: 09:52 Total Time Billed (hr/min): 12 Billed Treatment Time 1 visit-EX 1 (12 min) LINDA LAY Jun 15, 2021 10:31
[2021-06-15] MEDS: GABAPENTIN 600 MG (NEURONTIN) TAB PO SCH ×2 (10:39→19:18)
[2021-06-15] MEDS: dilTIAZem120 MG (CARDIZEM CD) CAP PO SCH (10:39)
[2021-06-15] MEDS: DOCUSATE SODIUM 100 MG (COLACE) CAP PO SCH ×2 (10:40→19:18)
[2021-06-15] MEDS: APIXABAN 5 MG (ELIQUIS) TABLET PO SCH ×3 (10:40→19:18)
--- NOTE | 2021-06-15 11:13 | Progress Note - Cardiology ---
Cardiology SOAP Progress Note Subjective: Gen malaise No cp or palp or syncope No shortness of breath at rest No n/v/d Objective: I&O/Vital Signs 06/15/21 06/15/21 06/15/21 06/15/21 00:01 04:00 07:26 10:54 Temp 36.5 35.9 36.4 Pulse 100 88 86 Resp 18 18 18 B/P (MAP) 125/65 (85) 125/77 (93) 144/71 (95) Pulse Ox 97 98 88 O2 Delivery Nasal Cannula Nasal Cannula Nasal Cannula Nasal Cannula O2 Flow Rate 2.00 2.00 2.00 2.00 06/15/21 00:00 Intake Total 1890 ml Output Total 605 ml Balance 1285 ml Constitutional: AAO x 3, well-developed, well-nourished Respiratory: No accessory muscle use, No respiratory distress; chest expansion is symmetric, chest is bilaterally symmetric, rhonchi (scattered; prolonged exp phase) Cardiovascular: irregularly irregular; No JVD; S1 and S2 Gastrointestional: other (post-op abdomen - drsg D&I) Genital/Rectal: other (urinary catheter in place to DD) Extremities: no lower extremity edema bilateral Neurologic/Psychiatric: other (moves all extremities) Skin: normal color, warm/dry, other (incision clean, dry and intact) Results/Procedures: Labs Laboratory Tests 06/15/21 05:16: White Blood Count 17.5H, Red Blood Count 4.00L, Hemoglobin 8.8L, Hematocrit 31L, Mean Corpuscular Volume 78L, Mean Corpuscular Hemoglobin 22L, Mean Corpuscular Hemoglobin Concent 28L, Red Cell Distribution Width 17.8H, Platelet Count 320, Mean Platelet Volume 8.9L, Immature Granulocyte % (Auto) 3, Neutrophils (%) (Auto) 81H, Lymphocytes (%) (Auto) 9L, Monocytes (%) (Auto) 6, Eosinophils (%) (Auto) 1, Basophils (%) (Auto) 0, Neutrophils # (Auto) 14.2H, Lymphocytes # (Auto) 1.5, Monocytes # (Auto) 1.1H, Eosinophils # (Auto) 0.2, Basophils # (Auto) 0.0, Immature Granulocyte # (Auto) 0.5H, Sodium Level 133L, Potassium Level 4.4, Chloride Level 98, Carbon Dioxide Level 27, Anion Gap 8, Blood Urea Nitrogen 8, Creatinine 0.75, Estimat Glomerular Filtration Rate 98, BUN/Creatinine Ratio 11, Glucose Level 98, Calcium Level 9.0, Magnesium Level 2.1 Microbiology 06/10/21 MRSA Screen - Final, Complete MRSA not isolated 06/09/21 Blood Culture - Final, Complete No growth Laboratory Tests 06/14/21 05:32 06/15/21 05:16 A/P: Assessment: Post colon resection with primary anastomosis, washout abdomen with placement drain on 06-10-[address] Salcedo Chronic a-fib - HR improved on Cardizem gtt - followed by Dr. Vasquez at [facility] - maintained on Eliquis 5mg BID - currently being held Echocardiogram of 07-15-[address] Vasquez at [facility] showed LVEF 55%. Mod dilated RV. PASP 70-75 mmHg Pulmonary HTN - followed by Dr. Moss at [facility] Plan: Resume OAC, if ok'd by Surg Monitor lab closely CARLOS PAGAN MD [facility] Jun 15, 2021 11:13
--- NOTE | 2021-06-15 11:13 | Physical Therapy Daily Note ---
PT Daily Note-Current Subjective Patient in bed pre tx, is reluctant to participate in PT, has no complaints of pain. Patient refused out of bed activity, stating he has already ambulated to the restroom and back and has sat in his recliner for a couple of hours this morning. He does agree to LE exercise in bed. Appearance Patient in bed post tx with nurse call, phone, tray, all needs met. Mental Status Patient Orientation: Person, Place, Situation Transfers SCALE: Activities may be completed with or without assistive devices. 5-Idkwyuhiuz-otdhzpc completes the activity by him/herself with no assistance from a helper. 5-Set-up or Clean-up Assistance-helper sets up or cleans up; patient completes activity. [place] assists only prior to or following the activity. 4-Supervision or Touching Assistance-helper provides verbal cues and/or touching/steadying and/or contact guard assistance as patient completes activity. Assistance may be provided throughout the activity or intermittently. 3-Partial/Moderate Assistance-helper does LESS THAN HALF the effort. [place] lifts, holds or supports trunk or limbs, but provides less than half the effort. 2-Substantial/Maximal Assistance-helper does MORE THAN HALF the effort. [place] lifts or holds trunk or limbs and provides more than half the effort. 4-Qjmgjsdea-hvhxqr does ALL the effort. Patient does none of the effort to complete the activity. Or, the assistance of 2 or more helpers is required for the patient to complete the activity. If activity was not attempted, code reason: 7-Patient Refused. 9-Not Applicable-not attempted and the patient did not perform the activity before the current illness, exacerbation or injury. 10-Not Attempted due to Environmental Limitations-(lack of equipment, weather restraints, etc.). 88-Not Attempted due to Medical Conditions or Safety Concerns. Exercises Supine Ex: Ankle pumps, Quad Set, Glut sets, Heel Slides, Straight leg raise (AAROM), Hip abd/add Supine Reps: 20 Treatments LE strengthening Assessment Current Status: Fair Progress Patient has not participated much in therapy but he does report he has been getting out of bed and even ambulating to the restroom. PT Inspector Cold Working Goals Inspector Cold Working Goals PT Long-Term Goals Time Frame: Jun 20, 2021 Roll Left & Right (QC): 6 Sit to Lying (QC): 6 Lying-Sitting on Side/Bed(QC): 6 Sit to Stand (QC): 6 Chair/Xtw-wk-Dieea Xfer(QC): 6 Toilet Transfer (QC): 6 Does the Patient Walk: Yes Walk 10 feet (QC): 6 Walk 50ft with 2 Turns (QC): 6 Walk 150 ft (QC): 6 PT Plan Problem List Problem List: Activity Tolerance, Functional Strength, Safety, Balance, Gait, Transfer, Bed Mobility, ROM Treatment/Plan Treatment Plan: Continue Plan of Care Treatment Plan: Bed Mobility, Education, Functional Activity Sukumar, Functional Strength, Gait, Safety, Therapeutic Exercise, Transfers Treatment Duration: Jun 20, 2021 Frequency: 6 times per week Estimated Hrs Per Day: .25 hour per day Safety Risks/Education Patient Education: Correct Positioning, Safety Issues Teaching Recipient: Patient Teaching Methods: Demonstration, Discussion Response to Teaching: Reinforcement Needed Time/GCodes Time In: 1042 Time Out: 1052 Total Billed Treatment Time: 10 Total Billed Treatment 1 visit EX 10' RAYMOND DE LA O PT Jun 15, 2021 11:13
--- NOTE | 2021-06-15 14:44 | Progress Note - Hospitalist ---
Subjective HPI/CC On Admission Date Seen by Provider: Jun 15, 2021 Time Seen by Provider: 14:42 Jasen Theodore is a 70 year old male with PMH HTN, AFib, colon cancer s/p resection, who presented with anastomotic leak. He underwent resection of colon mass on 05/06. He was later found to have an anastomotic leak with possible abscess and was scheduled for surgery. The hospitalist service has been consulted for medical comanagement. Upon my exam, he is in the ICU post-op. He denies abdominal pain. He denies shortness of breath. He has not been able to eat or drink anything yet. He has no other complaints or concerns. Subjective/Events-last exam Pt reports doing well today. Was up to the bathroom twice and to the chair for 1.5 hours. No other issues. Still no BM. Objective Exam Vital Signs Vital Signs Date Time Temp Pulse Resp B/P (MAP) Pulse Ox O2 Delivery O2 Flow Rate FiO2 06/15/21 11:42 36.6 92 18 120/82 (95) 92 Nasal Cannula 2.00 Capillary Refill : General Appearance: No Apparent Distress, Chronically ill, Obese Respiratory: Lungs Clear, No Respiratory Distress Cardiovascular: Regular Rate, Rhythm, No Murmur Gastrointestinal: Normal Bowel Sounds; No Guarding, No Rebound; Tenderness (appropriate) Neurologic/Psychiatric: Alert, Oriented x3 Results/Procedures Lab Laboratory Tests 06/15/21 05:16 Patient resulted labs reviewed. Imaging: Reviewed Imaging Report Assessment/Plan Assessment and Plan Assess & Plan/Chief Complaint Colon cancer s/p partial colectomy Anastomotic leak Surgery primary s/p original colon resection 05/06 s/p repeat colon resection due to anastomotic dehiscence 06/10 Completed Cipro and Flagyl DC IV fluids as increasing oral intake PT/OT Ambulate HTN AFib Cardiology following Resuming Eliquis per cardiology DVT prophylaxis: already receiving therapeutic anticoagulation Will round prn, call if needed PROSPER GALDAMEZ MD Jun 15, 2021 14:44
[2021-06-16] MEDS: ACETAMINOPHEN 500 MG TAB (TYLENOL) PO SCH (05:27)
[2021-06-16 05:34] LABS: BASOPHILS % (AUTO) 0 % (0-10); EOSINOPHILS # (AUTO) 0.2 10^3/uL (0.0-0.3); EOSINOPHILS % (AUTO) 1 % (0-10); HEMATOCRIT 33 % (40-54); HEMOGLOBIN 9.4 g/dL (13.3-17.7); LYMPHOCYTES # (AUTO) 1.5 10^3/uL (1.0-4.0); LYMPHOCYTES % (AUTO) 8 % (12-44); MEAN CORPUSCULAR HEMOGLOBIN 22 pg (25-34); MEAN CORPUSCULAR HGB CONC 28 g/dL (32-36); MEAN CORPUSCULAR VOLUME 77 fL (80-99); MEAN PLATELET VOLUME 8.7 fL (9.0-12.2); MONOCYTES # (AUTO) 1.1 10^3/uL (0.0-1.0); MONOCYTES % (AUTO) 6 % (0-12); NEUTROPHILS # (AUTO) 15.4 10^3/uL (1.8-7.8); NEUTROPHILS % (AUTO) 82 % (42-75); PLATELET COUNT 344 10^3/uL (130-400); WHITE BLOOD COUNT 18.7 10^3/uL (4.3-11.0)
[2021-06-16 05:52] LABS: POTASSIUM 4.1 MMOL/L (3.6-5.0)
[2021-06-16 05:53] LABS: CALCIUM 9.3 MG/DL (8.5-10.1)
[2021-06-16 05:58] LABS: CREATININE SERUM 0.8 MG/DL (0.60-1.30)
[2021-06-16 06:00] LABS: MAGNESIUM 2.2 MG/DL (1.6-2.4)
--- NOTE | 2021-06-16 06:42 | Progress Note - Surgery ---
ALEK TYSON 06/16/21 0642: Subjective Date Seen by a Provider: Jun 16, 2021 Time Seen by a Provider: 06:05 Subjective/Events-last exam Pt feeling good this morning and is hoping to be discharged today. Pain 06/18 this morning in his LLQ. Had a bowel movement that was solid brown, with no blood. Still passing gas. His drain contains minimal blood and mucus, draining only 10mL yesterday. He was restarted on Eliquis. The pt is on a soft food diet, but said he had a aghte-w-gemv, a few prydeinig fries, soda yesterday evening. He said the food settled well and he is not nauseous, nor has he vomited. The pt denies CP, SOB, palpitations, and fever at this time. Review of Systems General: No Chills; Fatigue HEENT: No Head Aches, No Visual Changes Pulmonary: No Dyspnea; Cough Cardiovascular: No: Chest Pain, Palpitations Gastrointestinal: Abdominal Pain; No: Nausea, Vomiting, Melena, Hematochezia Genitourinary: No Dysuria, No Hematuria Musculoskeletal: No: neck pain, leg pain Neurological: No: Weakness, Change in speech Focused Exam Respiratory: No Accessory Muscle Use, No Respiratory Distress, Wheezing Cardiovascular: No Murmur, Irregularly Irregular Peripheral Pulses: 2+ Radial Pulses (R), 2+ Radial Pulses (L) Skin: normal color, warm/dry, other (incision clean, intact; slight drainage on dressing) Objective Exam Vital Signs Date Time Temp Pulse Resp B/P (MAP) Pulse Ox O2 Delivery O2 Flow Rate FiO2 06/15/21 23:05 36.3 94 20 113/71 (85) 98 Nasal Cannula 2.00 06/15/21 19:16 35.8 89 18 113/68 (83) 96 Nasal Cannula 2.00 06/15/21 19:15 Room Air 06/15/21 16:43 36.2 84 24 135/75 (95) 100 Nasal Cannula 2.00 06/15/21 11:42 36.6 92 18 120/82 (95) 92 Nasal Cannula 2.00 06/15/21 10:54 Nasal Cannula 2.00 06/15/21 08:00 92 Room Air 06/15/21 07:26 36.4 86 18 144/71 (95) 88 Nasal Cannula 2.00 I & O 06/16/21 07:00 Intake Total 805 ml Output Total 800 ml Balance 5 ml Capillary Refill : General Appearance: No Apparent Distress, Chronically ill, Obese Respiratory: No Accessory Muscle Use, No Respiratory Distress, Wheezing Cardiovascular: No Murmur, Irregularly Irregular Peripheral Pulses: 2+ Radial Pulses (R), 2+ Radial Pulses (L) Gastrointestinal: soft, tenderness (incisional; LLQ,LUQ), other (Drain in LUQ has minimal drainage sero-sanguinous ) Extremity: Normal Inspection, No Pedal Edema Neurologic/Psychiatric: Alert, Oriented x3, Normal Mood/Affect Skin: Normal Color, Warm/Dry, Other (incision clean intact; slight drainage on dressing) Results Lab Laboratory Tests 06/16/21 05:20: White Blood Count 18.7H, Red Blood Count 4.33, Hemoglobin 9.4L, Hematocrit 33L, Mean Corpuscular Volume 77L, Mean Corpuscular Hemoglobin 22L, Mean Corpuscular Hemoglobin Concent 28L, Red Cell Distribution Width 18.2H, Platelet Count 344, Mean Platelet Volume 8.7L, Immature Granulocyte % (Auto) 3, Neutrophils (%) (Auto) 82H, Lymphocytes (%) (Auto) 8L, Monocytes (%) (Auto) 6, Eosinophils (%) (Auto) 1, Basophils (%) (Auto) 0, Neutrophils # (Auto) 15.4H, Lymphocytes # (Auto) 1.5, Monocytes # (Auto) 1.1H, Eosinophils # (Auto) 0.2, Basophils # (Auto) 0.0, Immature Granulocyte # (Auto) 0.5H, Sodium Level 134L, Potassium Level 4.1, Chloride Level 97L, Carbon Dioxide Level 30, Anion Gap 7, Blood Urea Nitrogen 8, Creatinine 0.80, Estimat Glomerular Filtration Rate 96, BUN/Creatinine Ratio 10, Glucose Level 121H, Calcium Level 9.3, Magnesium Level 2.2 Microbiology 06/10/21 MRSA Screen - Final, Complete MRSA not isolated 06/09/21 Blood Culture - Final, Complete No growth Assessment/Plan Assessment/Plan Assessment/Plan Colon Resection and primary anastomosis on 05/06 and 06/10 - secondary to Colon CA and then anastomotic breakdown Chronic Atrial Fibrillation, episode VTach HTN Anemia - chronic with some probably due to blood loss after surgery EKG on 06/15- AFib, V rate 67-90. IVCD, possible atypical RBBB. Consider discharge home, consult cardiology Restarted Eliquis Encourage IS (has one at home) and ambulation (may be getting a walker) Pain management Continue Cipro/Met Advance diet as tolerated JOSE SALCEDO DO 06/16/21 1149: Subjective Time Seen by a Provider: 11:26 Subjective/Events-last exam Pt seen and examined, states he is stronger today and walked in the halls. He wants to go home. Review of Systems General: No Chills Pulmonary: No Dyspnea; Cough Cardiovascular: No: Chest Pain, Palpitations Gastrointestinal: Abdominal Pain; No: Nausea, Vomiting Objective Exam General Appearance: No Apparent Distress, Chronically ill, Obese Respiratory: No Accessory Muscle Use, No Respiratory Distress, Wheezing Cardiovascular: No Murmur, Irregularly Irregular Gastrointestinal: soft, tenderness (incisional; LLQ,LUQ), other (Drain in LUQ has minimal drainage sero-sanguinous ) Assessment/Plan Assessment/Plan Assessment/Plan Colon Resection and primary anastomosis on 05/06 and 06/10 - secondary to Colon CA and then anastomotic breakdown Chronic Atrial Fibrillation, episode VTach HTN Anemia - chronic with some probably due to blood loss after surgery EKG on 06/15- AFib, V rate 67-90. IVCD, possible atypical RBBB. Consider discharge home, Restarted Eliquis Encourage IS (has one at home) and ambulation (may be getting a walker) Pain management, Continue Cipro/Met, Advance diet as tolerated Will D/C pt home Supervisory-Addendum Brief Verification & Attestation Participated in pt care: history, MDM, physical Personally performed: exam, history, MDM, supervision of care Care discussed with: Medical Student Procedures: n/a Verification and Attestation of Medical Student E/M Service A medical student performed and documented this service. I then reviewed and verified all information documented by the medical student and made modifications to such information, when appropriate. I personally performed a physical exam, medical decision making and then discussed any differences between the notes and made revisions as necessary to create one note. Jose Salcedo , 06/16/21 , 11:49 ALEK TYSON Jun 16, 2021 06:42 JOSE SALCEDO DO Jun 16, 2021 11:49
[2021-06-16 07:31] VITALS: BP 119/69
--- NOTE | 2021-06-16 09:11 | Physical Therapy Daily Note ---
PT Daily Note-Current Subjective Patient is very agreeable to participate with PT. Patient reports he is leaving and going home. Mental Status Patient Orientation: Normal For Age Transfers SCALE: Activities may be completed with or without assistive devices. 8-Iwyhmsrppj-omnbyva completes the activity by him/herself with no assistance from a helper. 5-Set-up or Clean-up Assistance-helper sets up or cleans up; patient completes activity. Ullin assists only prior to or following the activity. 4-Supervision or Touching Assistance-helper provides verbal cues and/or touching/steadying and/or contact guard assistance as patient completes activity. Assistance may be provided throughout the activity or intermittently. 3-Partial/Moderate Assistance-helper does LESS THAN HALF the effort. Ullin lifts, holds or supports trunk or limbs, but provides less than half the effort. 2-Substantial/Maximal Assistance-helper does MORE THAN HALF the effort. Ullin lifts or holds trunk or limbs and provides more than half the effort. 1-Ajvzhxqoz-ceepmw does ALL the effort. Patient does none of the effort to complete the activity. Or, the assistance of 2 or more helpers is required for the patient to complete the activity. If activity was not attempted, code reason: 7-Patient Refused. 9-Not Applicable-not attempted and the patient did not perform the activity before the current illness, exacerbation or injury. 10-Not Attempted due to Environmental Limitations-(lack of equipment, weather restraints, etc.). 88-Not Attempted due to Medical Conditions or Safety Concerns. Sit to Stand (QC): 6 Gait Training Does the Patient Walk?: Yes Distance: 275' Walk 10 feet (QC): 6 Walk 50 ft with 2 Turns(QC): 6 Walk 150 ft (QC): 6 Gait Assistive Device: FWW safe and functional with no deviation Assessment Current Status: Excellent Progress Patient is currently at independent PLOF with all gross motor skills. Patient to dismiss to home on this date. PT Half-Way Goals Cardboard Cutter Goals PT Cardboard Cutter Goals Time Frame: Jun 20, 2021 Roll Left & Right (QC): 6 Sit to Lying (QC): 6 Lying-Sitting on Side/Bed(QC): 6 Sit to Stand (QC): 6 Chair/Unr-ei-Sagzy Xfer(QC): 6 Toilet Transfer (QC): 6 Does the Patient Walk: Yes Walk 10 feet (QC): 6 Walk 50ft with 2 Turns (QC): 6 Walk 150 ft (QC): 6 PT Plan Treatment/Plan Treatment Plan: Discontinue PT, goals met Treatment Plan: Bed Mobility, Education, Functional Activity Sukumar, Functional Strength, Gait, Safety, Therapeutic Exercise, Transfers Treatment Duration: Jun 20, 2021 Frequency: 6 times per week Estimated Hrs Per Day: .25 hour per day Time/GCodes Time In: 830 Time Out: 838 Total Billed Treatment Time: 8 Total Billed Treatment 1 visit FA 8 min CATHERINE VACA PT Jun 16, 2021 09:11
[2021-06-16] MEDS: DOCUSATE SODIUM 100 MG (COLACE) CAP PO SCH (09:48)
[2021-06-16] MEDS: GABAPENTIN 600 MG (NEURONTIN) TAB PO SCH (09:48)
[2021-06-16] MEDS: dilTIAZem120 MG (CARDIZEM CD) CAP PO SCH (09:48)
[2021-06-16] MEDS: APIXABAN 5 MG (ELIQUIS) TABLET PO SCH (09:48)
--- NOTE | 2021-06-16 10:45 | Progress Note - Cardiology ---
Cardiology SOAP Progress Note Subjective: Lying in bed No c/o CP, SOB, palpitations, syncope or near syncope States he feels good Objective: I&O/Vital Signs 06/16/21 06/16/21 06/16/21 07:31 08:00 09:59 Temp 36.4 Pulse 90 Resp 20 B/P (MAP) 119/69 (86) Pulse Ox 99 O2 Delivery Nasal Cannula Room Air Nasal Cannula O2 Flow Rate 2.00 2.00 06/16/21 00:00 Intake Total 505 ml Output Total 300 ml Balance 205 ml Constitutional: AAO x 3, well-developed, well-nourished Respiratory: No accessory muscle use, No respiratory distress; chest expansion is symmetric, chest is bilaterally symmetric, rhonchi (scattered; prolonged exp phase) Cardiovascular: irregularly irregular; No JVD; S1 and S2 Gastrointestional: other (post-op abdomen - drsg D&I) Genital/Rectal: other (urinary catheter in place to DD) Extremities: no lower extremity edema bilateral Neurologic/Psychiatric: other (moves all extremities) Skin: normal color, warm/dry, other Results/Procedures: Labs Laboratory Tests 06/16/21 05:20: White Blood Count 18.7H, Red Blood Count 4.33, Hemoglobin 9.4L, Hematocrit 33L, Mean Corpuscular Volume 77L, Mean Corpuscular Hemoglobin 22L, Mean Corpuscular Hemoglobin Concent 28L, Red Cell Distribution Width 18.2H, Platelet Count 344, Mean Platelet Volume 8.7L, Immature Granulocyte % (Auto) 3, Neutrophils (%) (Auto) 82H, Lymphocytes (%) (Auto) 8L, Monocytes (%) (Auto) 6, Eosinophils (%) (Auto) 1, Basophils (%) (Auto) 0, Neutrophils # (Auto) 15.4H, Lymphocytes # (Auto) 1.5, Monocytes # (Auto) 1.1H, Eosinophils # (Auto) 0.2, Basophils # (Auto) 0.0, Immature Granulocyte # (Auto) 0.5H, Sodium Level 134L, Potassium Level 4.1, Chloride Level 97L, Carbon Dioxide Level 30, Anion Gap 7, Blood Urea Nitrogen 8, Creatinine 0.80, Estimat Glomerular Filtration Rate 96, BUN/Creatinine Ratio 10, Glucose Level 121H, Calcium Level 9.3, Magnesium Level 2.2 Microbiology 06/10/21 MRSA Screen - Final, Complete MRSA not isolated 06/09/21 Blood Culture - Final, Complete No growth A/P: Assessment: Post colon resection with primary anastomosis, washout abdomen with placement drain on 06-10-[address] Salcedo Chronic a-fib - HR improved on Cardizem gtt - followed by Dr. Vasquez at [facility] - maintained on Eliquis 5mg BID - currently being held Echocardiogram of 07-15-[address] Vasquez at [facility] showed LVEF 55%. Mod dilated RV. PASP 70-75 mmHg Pulmonary HTN - followed by Dr. Moss at [facility] Plan: Resume OAC, if ok'd by Surg Monitor lab closely CRISPIN NELSON Jun 16, 2021 10:45
--- NOTE | 2021-06-16 11:18 | Occ Therapy Progress Note ---
Therapy Progress Note Ot attempted therapy treatment this morning. Pt refuses all OOB activities and reports that he will be discharging home later today. He declines getting dressed and reports he will wait until his family arrives. Tennille Rodrigues OT Jun 16, 2021 11:18
[2021-06-16] MEDS ORDERED: ACHD5005 PO (11:51)
--- NOTE | 2021-06-16 11:53 | Discharge Inst-Surgical ---
Discharge Inst-Surgical Depart Medication/Instructions New, Converted or Re-Newed RX: Transmitted to Pharmacy Patient Instructions Follow up Appt: Make appointment for 1 week. [phone] Instructions: No lifting greater than 20 pounds. No strenuous activity. May shower in 24 hours, no tub bath or soaking. Use incentive spirometer at home as directed. No Smoking Skin/Wound Care: May remove bandages in am. You need to leave the Dermabond on incision it will fall off on it's own. Symptoms to Report: Appetite Changes, Extremity Discoloration, Numbness/Tingling, Swelling Increased, Bleeding Excessive, Eyesight Changes, Pain Increased, Urine Color Change, Constipation(Persistent), Fever over 101 degree F, Pain/Pressure in chest, Urinating Difficulty, Cough Up/Vomit Blood, Heart Beat Irreg/Pounding, Pain/Pressure in jaw, Cramps in feet or legs, Lightheadedness, Pain/Pressure in shoulder, Diarrhea(Persistent), Memory Changes Suddenly, Questions/Concerns, Weight gain consecutive days, Dizziness/Fainting, Nausea/Vomiting, Shortness of Breath, Weight gain over 2 pounds If questions or concerns contact your physician Or seek help at emergency department. Activity Activity as Tolerated: Yes Walking Assistive Device: Walker Driving Instructions: No Driving/Refer to Dr. Arauz Discharge Diet: No Restrictions Diet After 24 Hours: Clear Liquid if Nauseous If Any Problems/Questions/Issu: Contact Your Physician, Go to Emergency Room Skin/Wound Care Infection Signs and Symptoms: Increased Redness, Foul Odor of Wound, Increased Drainage, Skin Itchy or Has a Rash, Increased Swelling, Temperature Above 101 F Wound Care Comment: EMILIANO drain teaching and record daily Bathing Instructions: Shower Stitches/Matthew/Dermabond Dis: Care of NAOMI Murrieta DO Jun 16, 2021 11:53
--- NOTE | 2021-06-16 12:31 | Progress Note - Cardiology ---
Cardiology SOAP Progress Note Subjective: No cp or palp or syncope or shortness of breath at rest Gen weakness and malaise No n/v/d Objective: I&O/Vital Signs 06/16/21 06/16/21 06/16/21 07:31 08:00 09:59 Temp 36.4 Pulse 90 Resp 20 B/P (MAP) 119/69 (86) Pulse Ox 99 O2 Delivery Nasal Cannula Room Air Nasal Cannula O2 Flow Rate 2.00 2.00 06/16/21 00:00 Intake Total 505 ml Output Total 300 ml Balance 205 ml Constitutional: AAO x 3, well-developed, well-nourished Respiratory: No accessory muscle use, No respiratory distress; chest expansion is symmetric, chest is bilaterally symmetric, rhonchi (scattered; prolonged exp phase) Cardiovascular: irregularly irregular; No JVD; S1 and S2 Gastrointestional: other (post-op abdomen - drsg D&I) Genital/Rectal: other (urinary catheter in place to DD) Extremities: no lower extremity edema bilateral Neurologic/Psychiatric: other (moves all extremities) Skin: normal color, warm/dry, other Results/Procedures: Labs Laboratory Tests 06/16/21 05:20: White Blood Count 18.7H, Red Blood Count 4.33, Hemoglobin 9.4L, Hematocrit 33L, Mean Corpuscular Volume 77L, Mean Corpuscular Hemoglobin 22L, Mean Corpuscular Hemoglobin Concent 28L, Red Cell Distribution Width 18.2H, Platelet Count 344, Mean Platelet Volume 8.7L, Immature Granulocyte % (Auto) 3, Neutrophils (%) (Auto) 82H, Lymphocytes (%) (Auto) 8L, Monocytes (%) (Auto) 6, Eosinophils (%) (Auto) 1, Basophils (%) (Auto) 0, Neutrophils # (Auto) 15.4H, Lymphocytes # (Auto) 1.5, Monocytes # (Auto) 1.1H, Eosinophils # (Auto) 0.2, Basophils # (Auto) 0.0, Immature Granulocyte # (Auto) 0.5H, Sodium Level 134L, Potassium Le courtney 4.1, Chloride Level 97L, Carbon Dioxide Level 30, Anion Gap 7, Blood Urea N itrogen 8, Creatinine 0.80, Estimat Glomerular Filtration Rate 96, BUN/Creatinine Ratio 10, Glucose Level 121H, Calcium Level 9.3, Magnesium Level 2.2 Microbiology 06/10/21 MRSA Screen - Final, Complete MRSA not isolated 06/09/21 Blood Culture - Final, Complete No growth Laboratory Tests 06/15/21 05:16 06/16/21 05:20 A/P: Assessment: Post colon resection with primary anastomosis, washout abdomen with placement drain on 06-10-[address] Salcedo Chronic a-fib - HR improved on Cardizem gtt - followed by Dr. Vasquez at [facility] - maintained on Eliquis 5mg BID - currently being held Echocardiogram of 07-15-[address] Vasquez at [facility] showed LVEF 55%. Mod dilated RV. PASP 70-75 mmHg Pulmonary HTN - followed by Dr. Moss at [facility] Plan: Continue previously recommended cardiac regimen Monitor lab closely CARLOS PAGAN MD [facility] Jun 16, 2021 12:31
== END 2021-06-16 13:52 | disposition home or self-care (01) | DRG 856 ==
LOC: 4TH 11:06 → ICU 06-10 14:00 → 4TH 06-13 13:34
PROVIDERS: ADMIT Surgery; ATTEND Surgery
PROC: 8E0ZXY6 Isolation (ICD-10-PCS; 2021-06-09)
PROC: 0DBM0ZZ Excision of Descending Colon, Open Approach (ICD-10-PCS; 2021-06-10)
PROC: 0DBL0ZZ Excision of Transverse Colon, Open Approach (ICD-10-PCS; principal; 2021-06-10 11:15)
DX: T81.44XA Sepsis following a procedure, initial encounter (principal); R65.21 Severe sepsis with septic shock; A41.9 Sepsis, unspecified organism; K65.1 Peritoneal abscess; J96.01 Acute respiratory failure with hypoxia; T81.32XA Disruption of internal operation (surgical) wound, not elsewhere classified, initial encounter; I47.2 Ventricular tachycardia; I48.20 Chronic atrial fibrillation, unspecified; Z20.822 Contact with and (suspected) exposure to COVID-19; T81.43XA Infection following a procedure, organ and space surgical site, initial encounter; Z79.01 Long term (current) use of anticoagulants; I10 Essential (primary) hypertension; D50.0 Iron deficiency anemia secondary to blood loss (chronic); E87.5 Hyperkalemia; I27.20 Pulmonary hypertension, unspecified; F17.210 Nicotine dependence, cigarettes, uncomplicated; F41.9 Anxiety disorder, unspecified; F32.A Depression, unspecified; Z85.038 Personal history of other malignant neoplasm of large intestine; Z88.5 Allergy status to narcotic agent
CPT/HCPCS: 36415; 71045; 80048; 80053; 83735; 84100; 84484; 85007; 85025; 85027; 87040; 87081; 87636; 88307; 93005

== ENCOUNTER 2021-06-19 15:05 | Emergency (ER) | payer MEDICARE, MEDICAID ==
[~2021-06-19] VITALS: Ht 172.7 cm; Wt 106.1 kg
[~2021-06-19 15:05] MED LIST changes: +ASCO-262 PO; +CYAN500T44 PO; +DILT120C53 PO; +FERR-84 PO; +ZINC50TA58 PO
[2021-06-19] MEDS ORDERED: fentaNYL INJ 100 MCG/2 ML AMP IVP ONE (15:30)
--- NOTE | 2021-06-19 15:50 | ED Integumentary General ---
General Chief Complaint: Skin/Wound Problems Stated Complaint: BLEEDING OUT STOMACH Nursing Triage Note: PT TO ROOM BY WHEELCHAIR. PT ACCOMPANIED BY . PT AND STATE THAT WOUNDS STARTED BLEEDING TODAY AT THE SITES. PT STATES THAT PT STARTED BACK ON HIS BLOOD THINNER TODAY AND STRAINED WHILE TAKING A BOWEL MOVEMENT. PT DENIES ALL OTHER GI PROBLEMS Source: patient, family () Exam Limitations: no limitations History of Present Illness Date Seen by Provider: Jun 19, 2021 Time Seen by Provider: 15:25 Initial Comments Patient is a 70yo male with multiple health issues post-covid, who had surfery with Dr Hodge within the last couple of weeks for an anastomotic leak - supposed to be on eliquis for afib; restarted it today. Initial bowel resection - per Dr Hodge -was for Colon cancer (patient is a poor historian - did not relay this information).. Was straining to have a bowel movement today and had some leakage of bloody fluid at the staple line and also at what appears to be an old port site. His is also concerned for some enlargement of the right side of his abdomen - she states it looks "swollen". She mentions his legs are more swollen today as well. He is on lasix. He denies any SOB at rest there in the bed. No chest pain. No nausea or vomiting. No black or bloody stool when he pooped today although it was "hard as a rock. Temp at 99.6 today. All other ROS reviewed and negative except as stated.l Timing/Duration: other (last night) Severity: mild Allergies and Home Medications Allergies Coded Allergies: morphine (Unverified Allergy, Unknown, 04/29/21) Patient Home Medication List Home Medication List Reviewed: Yes ALPRAZolam (ALPRAZolam) 0.25 Mg Tablet, 0.125-0.25 MG PO DAILY PRN for ANXIETY, (Reported) Entered as Reported by: CRESENCIO STRONG on 05/04/21 1013 Apixaban (Eliquis) 5 Mg Tablet, 5 MG PO BID, (Reported) Entered as Reported by: CRESENCIO STRONG on 05/04/21 1013 Ascorbate Calcium (Vitamin C) 500 Mg Tablet, 500 MG PO DAILY, (Reported) Entered as Reported by: MELANIE CONSTANTINO on 06/09/21 1358 Citalopram Hydrobromide (Citalopram HBr) 20 Mg Tablet, 20 MG PO DAILY, (Reported) Entered as Reported by: CRESENCIO STRONG on 05/04/21 1013 Cyanocobalamin (Vitamin B-12) (B-12) 500 Mcg Tablet, 500 MCG PO DAILY, (Reported) Entered as Reported by: MELANIE CONSTANTINO on 06/09/21 1358 Diltiazem HCl (Cartia Xt) 120 Mg Cap.er.24h, 120 MG PO DAILY, (Reported) Entered as Reported by: MELANIE CONSTANTINO on 06/09/21 1358 Ferrous Sulfate (Iron) 325 Mg Tablet, 325 MG PO DAILY, (Reported) Entered as Reported by: MELANIE CONSTANTINO on 06/09/21 1358 Furosemide (Furosemide) 40 Mg Tablet, 80 MG PO DAILY, (Reported) Entered as Reported by: MELANIE CONSTANTINO on 05/07/21 1125 Gabapentin (Gabapentin) 600 Mg Tablet, 600 MG PO TID, (Reported) Entered as Reported by: CRESENCIO STRONG on 05/04/21 1013 Hydrocodone Bit/Acetaminophen (HYDROcodone/APAP 5 MG/325 MG TAB) 1 Tab Tab, 1 TAB PO Q8H PRN for PAIN-MODERATE (5-7) Prescribed by: NOAMI HODGE on 06/16/21 1152 Potassium Chloride (Potassium Chloride) 20 Meq Tab.er.prt, 40 MEQ PO HS, (Reported) Entered as Reported by: CRESENCIO STRONG on 05/04/21 1013 Spironolactone (Spironolactone) 50 Mg Tablet, 50 MG PO DAILY, (Reported) Entered as Reported by: MELANIE CONSTANTINO on 05/07/21 1125 Tadalafil (Tadalafil) 20 Mg Tablet, 20 MG PO DAILY, (Reported) Entered as Reported by: MELANIE CONSTANTINO on 05/07/21 1125 Zinc (Zinc) 50 Mg Tablet, 50 MG PO DAILY, (Reported) Entered as Reported by: MELANIE CONSTANTINO on 06/09/21 1358 Review of Systems Review of Systems Constitutional: see HPI EENTM: no symptoms reported Respiratory: other (always a little short of breath with exertion) Cardiovascular: edema Gastrointestinal: other (leakage from abdominal surgery sites) Musculoskeletal: no symptoms reported Skin: other (drainage from wounds) Psychiatric/Neurological: No Symptoms Reported All Other Systems Reviewed Negative Unless Noted: Yes Past Bxwilww-Wwgkzl-Hjeeny Hx Patient Social History Tobacco Use?: No Substance use?: No Alcohol Use?: No Immunizations Up To Date Influenza Vaccine Up-to-Date: Yes; Up-to-Date First/Initial COVID19 Vaccinat: JUNE 2020 Second COVID19 Vaccination Abdi: JULY 2020 Third COVID19 Vaccination Date: JULY 2020 Seasonal Allergies Seasonal Allergies: No Past Medical History Surgery/Hospitalization HX: 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 APPY TONSILS Surgeries: Yes Abdominal Respiratory: No Currently Using CPAP: No Currently Using BIPAP: No Cardiac: Yes Atrial Fibrillation, Hypertension Neurological: No Genitourinary: No Gastrointestinal: Yes (colon cancer) Musculoskeletal: No Endocrine: No HEENT: No Loss of Vision: Denies Hearing Impairment: Denies Cancer: Yes Colon Psychosocial: Yes Anxiety, Depression Integumentary: No Blood Disorders: No Family Medical History Cancer Physical Exam Vital Signs Vital Signs - First Documented 06/19/21 15:18 Temp 35.9 Pulse 86 Resp 20 B/P (MAP) 129/68 (88) Pulse Ox 94 Capillary Refill : General Appearance: WD/WN, no apparent distress HEENT: PERRL/EOMI Neck: normal inspection Cardiovascular: regular rate, rhythm Respiratory: lungs clear, normal breath sounds, no respiratory distress, no accessory muscle use Gastrointestinal: normal bowel sounds, soft, distended; No guarding, No rebound; other (abdominal wall fullness vs edema right flank; midline staple line with yellowis/bloody discharge at the mid portion of the staple line; small "hole" left upper quadrant with yellowis discharge - slight tenderness to palpation; bowel sounds are present; no involuntary guarding) Extremities: normal range of motion, pedal edema (2+) Neurologic/Psychiatric: alert, normal mood/affect, oriented x 3 Skin: normal color, warm/dry, other (see above abdominal exam) Skin Problem Character: drainage Progress/Results/Core Measures Results/Orders Lab Results Laboratory Tests Test 06/19/21 15:37 Range/Units White Blood Count 17.6 H 4.3-11.0 10^3/uL Red Blood Count 4.06 L 4.30-5.52 10^6/uL Hemoglobin 9.0 L 13.3-17.7 g/dL Hematocrit 31 L 40-54 % Mean Corpuscular Volume 77 L 80-99 fL Mean Corpuscular Hemoglobin 22 L 25-34 pg Mean Corpuscular Hemoglobin Concent 29 L 32-36 g/dL Red Cell Distribution Width 19.4 H 10.0-14.5 % Platelet Count 357 130-400 10^3/uL Mean Platelet Volume 9.2 9.0-12.2 fL Immature Granulocyte % (Auto) 2 % Neutrophils (%) (Auto) 84 H 42-75 % Lymphocytes (%) (Auto) 8 L 12-44 % Monocytes (%) (Auto) 5 0-12 % Eosinophils (%) (Auto) 0 0-10 % Basophils (%) (Auto) 0 0-10 % Neutrophils # (Auto) 14.8 H 1.8-7.8 10^3/uL Lymphocytes # (Auto) 1.3 1.0-4.0 10^3/uL Monocytes # (Auto) 1.0 0.0-1.0 10^3/uL Eosinophils # (Auto) 0.1 0.0-0.3 10^3/uL Basophils # (Auto) 0.0 0.0-0.1 10^3/uL Immature Granulocyte # (Auto) 0.4 H 0.0-0.1 10^3/uL Neutrophils % (Manual) 88 % Lymphocytes % (Manual) 8 % Monocytes % (Manual) 4 % Hypochromasia SLIGHT Anisocytosis SLIGHT Prothrombin Time 15.1 H 12.2-14.7 SEC INR Comment 1.1 0.8-1.4 Activated Partial Thromboplast Time 37 H 24-35 SEC Sodium Level 137 135-145 MMOL/L Potassium Level 4.7 3.6-5.0 MMOL/L Chloride Level 95 L 98-107 MMOL/L Carbon Dioxide Level 31 21-32 MMOL/L Anion Gap 11 5-14 MMOL/L Blood Urea Nitrogen 13 7-18 MG/DL Creatinine 1.07 0.60-1.30 MG/DL Estimat Glomerular Filtration Rate 76 BUN/Creatinine Ratio 12 Glucose Level 126 H 70-105 MG/DL Calcium Level 9.3 8.5-10.1 MG/DL My Orders Orders - MERCEDES BLANCO MD Ed Iv/Invasive Line Start (06/19/21 15:30) Cbc With Automated Diff (06/19/21 15:30) Basic Metabolic Panel (06/19/21 15:30) Protime With Inr (06/19/21 15:30) Partial Thromboplastin Time (06/19/21 15:30) Wound Culture (06/19/21 15:30) Fentanyl Inj (Sublimaze Injection) (06/19/21 15:30) Manual Differential (06/19/21 15:37) Medications Given in ED Current Medications Medications Dose Ordered Sig/Zach Route Start Time Stop Time Status Last Admin Dose Admin Fentanyl Citrate 50 mcg ONCE ONCE IVP 06/19/21 15:30 06/19/21 15:32 DC 06/19/21 15:43 50 MCG Vital Signs/I&O 06/19/21 15:18 Temp 35.9 Pulse 86 Resp 20 B/P (MAP) 129/68 (88) Pulse Ox 94 Blood Pressure Mean: 88 Progress Progress Note #1: Time: 15:38 Progress Note Discussed with Dr Hodge; he is going to come over from the office and take a look at his abdomen 1556 Dr Hodge looked at the sites - he discussed with family the importance of activity and being up and moving around. Also taking Lasix while at the same time, drinking plenty of fluids and taking stool softeners so as not to have to strain. He concurs the areas do not appear infected. He thinks all this fluid is just seroma/abdominal wall edema. Will await labs and if they look good, will talk to the family again and reiterate recommendations. Progress Note #2: Time: 16:34 Progress Note Labs look great. Will redress the incisions and wounds. I spoke to them extensively about being up and moving - getting exercise as much as he is able to tolerate - primarily walking alot. We talked about all the advantages of this - getting gut moving, mobilizing fluids, improving edema. Continuing lasix and oral fluids. Elevating legs when at rest. return precautions. His follow up with Denisse is next Tuesday (4 days from now). He is happy with the plan of care. All questions are sought and answered. Departure Impression Primary Impression: Encounter for postoperative wound care Additional Impressions: Chronic anticoagulation Atrial fibrillation Qualified Codes: I48.11 - Longstanding persistent atrial fibrillation Disposition: HOME, SELF-CARE Condition: Stable Departure-Patient Inst. Decision time for Depature: 16:37 Referrals: NO,LOCAL PHYSICIAN (PCP) Primary Care Physician DEJON WREN APRN (Family) Primary Care Physician NAOMI HODGE DO Patient Instructions: Wound Care ED Add. Discharge Instructions: Keep the wounds/surgical sites clean, dry and covered. Get up and walk, with your walker, as much as you can tolerate all around the h ouse. This helps not only your bowels move more, but helps get rid of extra fluids in your abdomen and legs. Continue your lasix twice a day in the mornings and afternoon. But do drink fluids to stay hydrated and keep your stools soft. You can take the stool softeners twice a day - the goal is formed stools, not hard. If you have a fever over 100.4, abdominal pain, vomiting or any other emergent, concerning symptoms, please come back for re-evaluation. Keep your follow up with Dr Hodge for next Tuesday. Copy Copies To 1: NAOMI HODGE KATHRYN M MD Jun 19, 2021 15:50
[2021-06-19 15:58] LABS: BASOPHILS % (AUTO) 0 % (0-10); EOSINOPHILS # (AUTO) 0.1 10^3/uL (0.0-0.3); EOSINOPHILS % (AUTO) 0 % (0-10); HEMATOCRIT 31 % (40-54); LYMPHOCYTES # (AUTO) 1.3 10^3/uL (1.0-4.0); LYMPHOCYTES % (AUTO) 8 % (12-44); MEAN CORPUSCULAR HEMOGLOBIN 22 pg (25-34); MEAN CORPUSCULAR HGB CONC 29 g/dL (32-36); MEAN CORPUSCULAR VOLUME 77 fL (80-99); MEAN PLATELET VOLUME 9.2 fL (9.0-12.2); MONOCYTES % (AUTO) 5 % (0-12); NEUTROPHILS # (AUTO) 14.8 10^3/uL (1.8-7.8); NEUTROPHILS % (AUTO) 84 % (42-75); PLATELET COUNT 357 10^3/uL (130-400); WHITE BLOOD COUNT 17.6 10^3/uL (4.3-11.0)
[2021-06-19 16:03] LABS: POTASSIUM 4.7 MMOL/L (3.6-5.0)
[2021-06-19 16:04] LABS: CALCIUM 9.3 MG/DL (8.5-10.1)
[2021-06-19 16:05] LABS: INR 1.1 (0.8-1.4); PROTHROMBIN TIME PATIENT 15.1 SEC (12.2-14.7)
[2021-06-19 16:08] LABS: CREATININE SERUM 1.07 MG/DL (0.60-1.30)
[2021-06-19 16:25] LABS: ANISOCYTOSIS SLIGHT; HYPOCHROMASIA SLIGHT; LYMPHOCYTES % (MANUAL) 8 %; MONOCYTES % (MANUAL) 4 %; NEUTROPHILS % (MANUAL) 88 %
[2021-06-19 17:00] VITALS: BP 113/86
== END 2021-06-19 16:52 | disposition home or self-care (01) ==
LOC: EDUNIT# 15:05 → ER 15:08
DX: L76.22 Postprocedural hemorrhage of skin and subcutaneous tissue following other procedure (principal); I48.11 Longstanding persistent atrial fibrillation; Z79.01 Long term (current) use of anticoagulants
CPT/HCPCS: 36415; 80048; 85007; 85027; 85610; 85730; 87070; 87205

== ENCOUNTER 2021-07-22 13:00 | Outpatient (RCR) | payer MEDICARE, MEDICAID | END 2021-08-08 | disposition home or self-care (01) | LOC: ONC 13:00 | PROVIDERS: ATTEND Internal Medicine Hematology & Oncology | DX: C18.9 Malignant neoplasm of colon, unspecified (principal) | CPT/HCPCS: 88341; 88342; G0463; 99213 ==

== ENCOUNTER 2021-10-27 12:56 | Outpatient (RCR) | payer MEDICARE, MEDICAID ==
[2021-10-27 13:23] LABS: BASOPHILS % (AUTO) 1 % (0-10); EOSINOPHILS # (AUTO) 0.1 10^3/uL (0.0-0.3); EOSINOPHILS % (AUTO) 1 % (0-10); HEMATOCRIT 45 % (40-54); HEMOGLOBIN 13.5 g/dL (13.3-17.7); LYMPHOCYTES # (AUTO) 1.3 10^3/uL (1.0-4.0); LYMPHOCYTES % (AUTO) 15 % (12-44); MEAN CORPUSCULAR HEMOGLOBIN 23 pg (25-34); MEAN CORPUSCULAR HGB CONC 30 g/dL (32-36); MEAN CORPUSCULAR VOLUME 78 fL (80-99); MEAN PLATELET VOLUME 9.8 fL (9.0-12.2); MONOCYTES # (AUTO) 0.7 10^3/uL (0.0-1.0); MONOCYTES % (AUTO) 8 % (0-12); NEUTROPHILS # (AUTO) 6.4 10^3/uL (1.8-7.8); NEUTROPHILS % (AUTO) 75 % (42-75); PLATELET COUNT 160 10^3/uL (130-400); WHITE BLOOD COUNT 8.5 10^3/uL (4.3-11.0)
[2021-10-27 13:47] LABS: ALBUMIN 3.6 GM/DL (3.2-4.5); BILIRUBIN,TOTAL 0.5 MG/DL (0.1-1.0); CALCIUM 9.8 MG/DL (8.5-10.1); CREATININE SERUM 1.49 MG/DL (0.60-1.30); POTASSIUM 4.5 MMOL/L (3.6-5.0); TOTAL PROTEIN 6.9 GM/DL (6.4-8.2)
== END 2021-11-08 | disposition home or self-care (01) ==
LOC: ONC 12:56
PROVIDERS: ATTEND Internal Medicine Hematology & Oncology
DX: C18.9 Malignant neoplasm of colon, unspecified (principal)
CPT/HCPCS: 80053; 82378; 85025; G0463; 36415; 99213

== ENCOUNTER → 2021-11-19 | Outpatient (CLI) | payer MEDICARE, MEDICAID ==
[2021-11-19] MEDS: IOHEXOL 350 MG/ML 100 ML (OMNIPAQUE 350) VIAL IV ONE (10:30)
[2021-11-19] MEDS: NS 100 ML (IVPB) BAG IV ONE (10:31)
--- NOTE | 2021-11-19 11:06 | Diagnostic Imaging Report ---
EXAMINATION: CT chest, pelvis with contrast, CT abdomen with and without contrast. TECHNIQUE: Precontrast acquisitions were acquired through the abdomen. Multiple contiguous axial images were obtained through the chest, abdomen and pelvis after administration of intravenous contrast. All CT scans use one or more of the following dose optimizing techniques: automated exposure control, MA and/or KvP adjustment based on patient size and exam type or iterative reconstruction. HISTORY: Colon cancer COMPARISON: 06/01/2021 FINDINGS: There is no edema or pneumonia. No pleural effusion. No pneumothorax. No suspicious nodules. There is no axillary or supraclavicular lymphadenopathy. There is no mediastinal lymphadenopathy. Both atria are dilated. There are mild coronary artery calcifications. No pericardial effusion. Aorta is normal in caliber. The liver is normal without focal lesion. There is no biliary ductal dilation. Gallbladder is normal. Pancreas is normal. Spleen is normal. Adrenal glands are normal. The kidneys are normal. There is no hydronephrosis. Urinary bladder is normal. Visualized bowel is normal in caliber without obstruction or inflammation. There has been a colon resection. No free fluid or air. No abdominal or pelvic lymphadenopathy. Aorta is normal in caliber without aneurysm. There are no suspicious osseus lesions. IMPRESSION: 1. No metastatic disease in the chest, abdomen or pelvis. Dictated by: Dictated on workstation # [id number]
== END ==
LOC: RAD 10:04
PROVIDERS: ATTEND Internal Medicine Hematology & Oncology
DX: C18.9 Malignant neoplasm of colon, unspecified (principal)
CPT/HCPCS: 71260; 74178

== ENCOUNTER 2022-02-02 13:19 | Outpatient (RCR) | payer MEDICARE, MEDICAID ==
[2022-02-02 13:31] LABS: BASOPHILS % (AUTO) 0 % (0-10); EOSINOPHILS # (AUTO) 0.1 10^3/uL (0.0-0.3); EOSINOPHILS % (AUTO) 1 % (0-10); HEMATOCRIT 54 % (40-54); HEMOGLOBIN 16.5 g/dL (13.3-17.7); LYMPHOCYTES # (AUTO) 1.3 10^3/uL (1.0-4.0); LYMPHOCYTES % (AUTO) 13 % (12-44); MEAN CORPUSCULAR HEMOGLOBIN 26 pg (25-34); MEAN CORPUSCULAR HGB CONC 31 g/dL (32-36); MEAN CORPUSCULAR VOLUME 85 fL (80-99); MEAN PLATELET VOLUME 9.4 fL (9.0-12.2); MONOCYTES # (AUTO) 0.7 10^3/uL (0.0-1.0); MONOCYTES % (AUTO) 8 % (0-12); NEUTROPHILS # (AUTO) 7.6 10^3/uL (1.8-7.8); NEUTROPHILS % (AUTO) 77 % (42-75); PLATELET COUNT 146 10^3/uL (130-400); WHITE BLOOD COUNT 9.8 10^3/uL (4.3-11.0)
[2022-02-02 14:08] LABS: ALBUMIN 4.3 GM/DL (3.2-4.5); BILIRUBIN,TOTAL 0.7 MG/DL (0.1-1.0); CALCIUM 10.6 MG/DL (8.5-10.1); CREATININE SERUM 1.45 MG/DL (0.60-1.30); POTASSIUM 4.2 MMOL/L (3.6-5.0); TOTAL PROTEIN 8.5 GM/DL (6.4-8.2)
== END 2022-02-08 | disposition home or self-care (01) ==
LOC: ONC 13:19
PROVIDERS: ATTEND Internal Medicine Hematology & Oncology
DX: C18.9 Malignant neoplasm of colon, unspecified (principal)
CPT/HCPCS: 36415; 80053; 82378; 85025

== ENCOUNTER 2022-05-04 11:14 | Outpatient (RCR) | payer MEDICARE, MEDICAID ==
[2022-05-04 11:27] LABS: BASOPHILS % (AUTO) 0 % (0-10); EOSINOPHILS # (AUTO) 0.1 10^3/uL (0.0-0.3); EOSINOPHILS % (AUTO) 1 % (0-10); HEMATOCRIT 52 % (40-54); HEMOGLOBIN 16.1 g/dL (13.3-17.7); LYMPHOCYTES # (AUTO) 1.4 10^3/uL (1.0-4.0); LYMPHOCYTES % (AUTO) 15 % (12-44); MEAN CORPUSCULAR HEMOGLOBIN 27 pg (25-34); MEAN CORPUSCULAR HGB CONC 31 g/dL (32-36); MEAN CORPUSCULAR VOLUME 88 fL (80-99); MEAN PLATELET VOLUME 9.7 fL (9.0-12.2); MONOCYTES # (AUTO) 0.7 10^3/uL (0.0-1.0); MONOCYTES % (AUTO) 8 % (0-12); NEUTROPHILS % (AUTO) 75 % (42-75); PLATELET COUNT 148 10^3/uL (130-400); WHITE BLOOD COUNT 9.4 10^3/uL (4.3-11.0)
[2022-05-04 11:47] LABS: POTASSIUM 4.4 MMOL/L (3.6-5.0)
[2022-05-04 11:48] LABS: ALBUMIN 3.9 GM/DL (3.2-4.5); BILIRUBIN,TOTAL 0.6 MG/DL (0.1-1.0); CALCIUM 10.5 MG/DL (8.5-10.1); CREATININE SERUM 1.3 MG/DL (0.60-1.30); TOTAL PROTEIN 7.3 GM/DL (6.4-8.2)
[2022-05-05] MEDS ORDERED: ESCI-2 PO (09:13)
[2022-05-05] MEDS ORDERED: ALLO100T PO (09:13)
== END 2022-05-11 | disposition home or self-care (01) ==
LOC: ONC 11:14
PROVIDERS: ATTEND Internal Medicine Hematology & Oncology
DX: C18.9 Malignant neoplasm of colon, unspecified (principal)
CPT/HCPCS: 80053; 82378; 85025; G0463; 36415; 99213

== ENCOUNTER 2022-05-05 05:59 | Outpatient (CLI) | payer MEDICARE, MEDICAID ==
[~2022-05-05] VITALS: Ht 172.7 cm; Wt 123.6 kg
[2022-05-05] MEDS ORDERED: ESCI-2 PO (09:13)
[2022-05-05] MEDS ORDERED: ALLO100T PO (09:13)
== END 2022-05-05 09:17 | disposition home or self-care (01) ==
LOC: PREOP 05:59
PROVIDERS: ATTEND Surgery
DX: Z01.818 Encounter for other preprocedural examination (principal)

== ENCOUNTER 2022-05-17 07:48 | Day surgery (SDC) | payer MEDICARE, MEDICAID ==
[~2022-05-17] VITALS: Ht 172.7 cm; Wt 123.6 kg
[2022-05-17] MEDS ORDERED: LACTATED RINGERS 1,000 ML IV STA (07:57)
[2022-05-17] MEDS ORDERED: PROPOFOL INJECTION 50 ML IV ONE (08:08)
[2022-05-17] MEDS ORDERED: MIDAZOLAM 2 MG/2 ML (VERSED) VIAL ONE (08:09)
[2022-05-17 08:10] VITALS: BP 124/67
--- NOTE | 2022-05-17 08:22 | Progress Note-Pre Operative ---
Pre-Operative Progress Note Date of Available H&P: Apr 20, 2022 Date H&P Reviewed: May 17, 2022 Time H&P Reviewed: 08:18 History & Physical: H&P Reviewed, Patient Examed, No changes noted Pre-Operative Diagnosis: Hx of Colon CA NAOMI HODGE DO May 17, 2022 08:21
[2022-05-17 09:30] VITALS: BP 102/66
--- NOTE | 2022-05-17 09:32 | Progress Note-Post Operative ---
Post-Operative Progess Note Surgeon (s)/Skate Hop (s) Surgeon NAOMI HODGE DO Skate Hop: Lorenzo Wright, MSIII Pre-Operative Diagnosis Hx of Colon CA Post-Operative Diagnosis Polyps int hemorrhoids Procedure & Operative Findings Date of Procedure 05/17/22 Procedure Performed/Findings Colonoscopy with Snare Polypectomy Colonoscopy with hot bx PROCEDURE NOTE: After informed consent was obtained, the patient was brought to the endoscopy suite, placed in bed in left lateral decubitus position. He was administered IV sedation by the NURSERY HAND who then monitored his vitals the entire time, heart rate, blood pressure and pulse ox and the scope was inserted, pushed all the way to about 100 cm and pushed into the cecum, took a picture of appendiceal orifice and noted the ileocecal valve. In the cecum I found a small polyp, took a picture and then elected to remove it with hot biopsy. Then slowly withdrew the scope insufflating to look circumferentially at the terry starting in the cecum and up the ascending colon. In the ascending colon I found two large polyps that I elected to completely remove with the snare. Continued to the hepatic flexure, then into the descending colon and took a picture of the anastomosis. Continued down into the sigmoid where I found another polyp; also removed with snare. Finally into the rectal vault and retroflexed the scope. Took a picture of the internal hemorrhoids. The patient tolerated the procedure. He was recovered in endoscopy suite. Recommended for repeat colonoscopy in 1 years. Anesthesia Type IV sedation by NURSERY HAND Estimated Blood Loss Estimated blood loss (mL): scant Specimens/Packing Specimens Removed cecal polyp asc colon polyp x 2 sigmoid polyp NAOMI HODGE DO May 17, 2022 09:32
--- NOTE | 2022-05-17 09:34 | Endoscopy Discharge Instruct ---
Endo Procedure/Findings Findings 1.: Polyp 2.: Internal Hemorrhoids Discharge Instructions - Activity: You might feel a little sleepy until tomorrow. This is due to the medicine you received to relax you. Until tomorrow, you should: NOT drive a car, operate machinery or power tools. NOT drink any alcoholic beverages. NOT make any important decisions or sign importortant papers. Do not return to work until tomorrow, unless otherwise instructed. Resume previous activities tomorrow. Diet: Start by taking liquids. If you tolerate liquids, advance to solid food. 1.: Colonoscopy in 1 year Notify Physician - If you experience excessive bleeding, unusual abdominal pain, fever, or chest pain, contact your doctor immediately. NAOMI HODGE DO May 17, 2022 09:33
[2022-05-17 09:35] VITALS: BP 120/59
[2022-05-17 09:40] VITALS: BP 112/55
[2022-05-17 09:45] VITALS: BP 117/58
[2022-05-17 10:00] VITALS: BP 117/58
--- NOTE | 2022-05-17 11:56 | Anesthesia-General Post-Op ---
MAC Patient Condition Mental Status/LOC: Same as Preop Cardiovascular: Satisfactory Nausea/Vomiting: Absent Respiratory: Satisfactory Pain: Controlled Complications: Absent Post Op Complications Complications None Follow Up Care/Instructions Patient Instructions None needed. Anesthesiology Discharge Order Discharge Order Patient is doing well, no complaints, stable vital signs, no apparent adverse anesthesia problems. No complications reported per nursing. ZACK UGARTE CRNA May 17, 2022 11:56
== END 2022-05-17 10:10 | disposition home or self-care (01) ==
LOC: ENDO 07:48
PROVIDERS: ATTEND Surgery
DX: Z12.11 Encounter for screening for malignant neoplasm of colon (principal); D12.0 Benign neoplasm of cecum; D12.2 Benign neoplasm of ascending colon; K63.5 Polyp of colon; K64.8 Other hemorrhoids; E66.9 Obesity, unspecified; Z68.41 Body mass index [BMI] 40.0-44.9, adult; F17.290 Nicotine dependence, other tobacco product, uncomplicated; Z85.038 Personal history of other malignant neoplasm of large intestine; Z90.49 Acquired absence of other specified parts of digestive tract
CPT/HCPCS: 88305

== ENCOUNTER → 2022-07-27 | Outpatient (CLI) | payer MEDICARE, MEDICAID ==
[~2022-07-27] MED LIST changes: +HOLD METFORMIN - RECEIVED CONTRAST 20 ML VIAL IV SCH; +IOHEXOL 350 MG/ML 100 ML (OMNIPAQUE 350) VIAL IV ONE; +NS 100 ML (IVPB) BAG IV ONE
--- NOTE | 2022-07-27 16:35 | Diagnostic Imaging Report ---
PROCEDURE: CT chest, abdomen, and pelvis with contrast. TECHNIQUE: Multiple contiguous axial images were obtained through the chest, abdomen, and pelvis after the administration of intravenous contrast. Auto Exposure Controls were utilized during the CT exam to meet ALARA standards for radiation dose reduction. INDICATION: Malignant tumor of the colon, in remission and off treatment for the past year. COMPARISON: Correlation is made with prior CT from 06/01/2021. FINDINGS: CT CHEST: No axillary lymphadenopathy is detected. No definite mediastinal or hilar lymphadenopathy is identified. The heart is enlarged. There is no pericardial or pleural fluid identified. No pulmonary infiltrates, nodules or masses are seen. There is some linear scarring or atelectasis in the bilateral lower lobes. CT ABDOMEN AND PELVIS: Liver demonstrates diffuse low attenuation, consistent with hepatic steatosis. No liver mass is identified. Gallbladder is unremarkable. There is no biliary ductal dilatation. Pancreas and spleen are unremarkable. No adrenal mass is identified. Kidneys are unremarkable. There is no hydronephrosis. Aorta is nonaneurysmal. No central retroperitoneal or mesenteric lymphadenopathy is detected. The bowel loops appear to be normal in caliber. The large gas and fluid collection in the left upper quadrant noted on prior CT has resolved. There is no bowel obstruction. No free fluid is seen. There is a fat-containing umbilical hernia. Bladder and prostate are unremarkable. There are bilateral fat-containing inguinal hernias. No pelvic lymphadenopathy is detected. Bony structures are nonacute. IMPRESSION: 1. Cardiomegaly with bibasilar atelectasis or scarring. 2. Hepatic steatosis. 3. Resolution of left upper quadrant gas and fluid collection. No new fluid collection is seen. 4. No evidence of abdominal or pelvic lymphadenopathy or metastatic disease. 5. Umbilical and bilateral inguinal fat-containing hernias. Dictated by: Dictated on workstation # [id number]
== END ==
LOC: RAD 14:37
PROVIDERS: ATTEND Internal Medicine Hematology & Oncology
DX: I51.7 Cardiomegaly (principal); K76.0 Fatty (change of) liver, not elsewhere classified; K40.20 Bilateral inguinal hernia, without obstruction or gangrene, not specified as recurrent; C18.9 Malignant neoplasm of colon, unspecified
CPT/HCPCS: 71260; 74177

== ENCOUNTER 2022-08-03 13:15 | Outpatient (RCR) | payer MEDICARE, MEDICAID ==
[2022-07-27 14:45] LABS: BASOPHILS % (AUTO) 0 % (0-10); EOSINOPHILS % (AUTO) 0 % (0-10); HEMATOCRIT 50 % (40-54); HEMOGLOBIN 15.8 g/dL (13.3-17.7); LYMPHOCYTES # (AUTO) 1.5 10^3/uL (1.0-4.0); LYMPHOCYTES % (AUTO) 16 % (12-44); MEAN CORPUSCULAR HEMOGLOBIN 28 pg (25-34); MEAN CORPUSCULAR HGB CONC 32 g/dL (32-36); MEAN CORPUSCULAR VOLUME 88 fL (80-99); MONOCYTES # (AUTO) 0.8 10^3/uL (0.0-1.0); MONOCYTES % (AUTO) 9 % (0-12); NEUTROPHILS # (AUTO) 6.8 10^3/uL (1.8-7.8); NEUTROPHILS % (AUTO) 74 % (42-75); PLATELET COUNT 148 10^3/uL (130-400); WHITE BLOOD COUNT 9.3 10^3/uL (4.3-11.0)
[2022-07-27 15:16] LABS: ALBUMIN 3.8 GM/DL (3.2-4.5); BILIRUBIN,TOTAL 0.9 MG/DL (0.1-1.0); CREATININE SERUM 1.28 MG/DL (0.60-1.30); POTASSIUM 4.4 MMOL/L (3.6-5.0); TOTAL PROTEIN 7.1 GM/DL (6.4-8.2)
[~2022-08-03 13:15] MED LIST changes: -HOLD METFORMIN - RECEIVED CONTRAST 20 ML VIAL IV SCH; -IOHEXOL 350 MG/ML 100 ML (OMNIPAQUE 350) VIAL IV ONE; -NS 100 ML (IVPB) BAG IV ONE
== END 2022-08-08 | disposition home or self-care (01) ==
LOC: ONC 13:15
PROVIDERS: ATTEND Internal Medicine Hematology & Oncology
DX: C18.9 Malignant neoplasm of colon, unspecified (principal)
CPT/HCPCS: 36415; 80053; 82378; 85025

== ENCOUNTER 2022-12-07 12:56 | Outpatient (RCR) | payer MEDICARE, MEDICAID ==
[2022-12-07 13:25] LABS: BASOPHILS % (AUTO) 0 % (0-10)
[2022-12-07 13:27] LABS: EOSINOPHILS # (AUTO) 0.1 10^3/uL (0.0-0.3); EOSINOPHILS % (AUTO) 1 % (0-10); HEMATOCRIT 49 % (40-54); HEMOGLOBIN 15.7 g/dL (13.3-17.7); LYMPHOCYTES # (AUTO) 1.3 10^3/uL (1.0-4.0); LYMPHOCYTES % (AUTO) 13 % (12-44); MEAN CORPUSCULAR HEMOGLOBIN 29 pg (25-34); MEAN CORPUSCULAR HGB CONC 32 g/dL (32-36); MEAN CORPUSCULAR VOLUME 90 fL (80-99); MEAN PLATELET VOLUME 10.9 fL (9.0-12.2); MONOCYTES # (AUTO) 0.7 10^3/uL (0.0-1.0); MONOCYTES % (AUTO) 7 % (0-12); NEUTROPHILS % (AUTO) 79 % (42-75); PLATELET COUNT 116 10^3/uL (130-400); WHITE BLOOD COUNT 10.2 10^3/uL (4.3-11.0)
[2022-12-07 13:51] LABS: ALBUMIN 3.7 GM/DL (3.2-4.5); BILIRUBIN,TOTAL 1.1 MG/DL (0.1-1.0); CALCIUM 9.5 MG/DL (8.5-10.1); CREATININE SERUM 1.31 MG/DL (0.60-1.30); POTASSIUM 4.3 MMOL/L (3.6-5.0); TOTAL PROTEIN 6.3 GM/DL (6.4-8.2)
== END 2022-12-09 | disposition home or self-care (01) ==
LOC: ONC 12:56
PROVIDERS: ATTEND Internal Medicine Hematology & Oncology
DX: C18.9 Malignant neoplasm of colon, unspecified (principal)
CPT/HCPCS: 80053; 82378; 85025; G0463; 36415; 99214